=== PATIENT | female | born 1945 | race Caucasian/White ===

== ENCOUNTER 2017-04-01 12:00 | Inpatient (IN) | payer MEDICARE, OTHER ==
[2017-04-01] MEDS ORDERED: Dextran 70/Hypromellose/PF Ophth Soln 0.9 ML UD EYERT PRN (13:04)
[2017-04-01] MEDS ORDERED: Magnesium Hydroxide 400 MG/5 ML Susp 30 ML Cup PO PRN (13:04)
[2017-04-01] MEDS: Acetaminophen/HYDROcodone 325-10 MG Tab PO PRN ×2 (13:39→18:31)
[2017-04-01] MEDS: Calcium Citrate/Vitamin D3 315 MG-250 Unit Tab PO SCH (20:02)
[2017-04-01] MEDS: Apixaban 2.5 MG Tab PO SCH (20:03)
[2017-04-01] MEDS: Multivitamins with Iron/Calcium/Folic Acid/Minerals Tab PO SCH (20:04)
[2017-04-01] MEDS: oxyCODONE 5 MG Tab PO SCH (20:04)
[2017-04-01] MEDS: Metoprolol Tartrate 50 MG Tab PO SCH (20:06)
[2017-04-01] MEDS: Insulin Glargine,Human Rec. Analog 100 Units/ML 3 ML Pen SUBCUT SCH (20:12)
[2017-04-02] MEDS: Acetaminophen/HYDROcodone 325-10 MG Tab PO PRN ×6 (00:11→21:57)
--- NOTE | 2017-04-02 00:41 | HP ---
CHIEF COMPLAINT: Left knee replacement. HISTORY OF PRESENT ILLNESS: This is a 71-year-old with severe arthritis of her left knee, which was replaced by Dr. Roca on 03/29/2017, who comes in for further swing bed cares. She did have some acute blood loss after surgery. Her hemoglobin decreased from 12.4 to 10.1. She has had quite a bit of pain requiring pain pills 2 at a time. Otherwise, she had a bowel movement after suppositories prior to leaving [place]. She has not had any chest pain or coughing or shortness of breath. Her legs are not swollen. She has been on Eliquis for DVT prophylaxis with last dose to be taken the morning of 04/11. PAST MEDICAL HISTORY: Otherwise includes history of thyroid nodules, fibrocystic breasts, endometrial cancer status post hysterectomy, previous compression fracture due to trauma at L3 back in 2009, chronic back pain, uses maybe 1 pain pill per day, obstructive sleep apnea on CPAP, obesity status post gastric bypass surgery, previous retinal vein occlusion, spinal stenosis, hyperlipidemia refusing statins due to myalgias, iron deficiency anemia, asymptomatic carotid artery stenosis, moderate varicose veins bilaterally, anastomotic ulcer after her gastric bypass. She should not use aspirin or NSAIDs. Diabetes type 2 without complications, on long-term insulin use. History of pneumonia in the fall of 2016, resolved. Left hip pain. ALLERGIES: She is allergic to aspirin due to ulcers. Lipitor caused muscle aches. Zestril caused cough. MEDICATIONS: Reviewed. She was taking hydrocodone 10/325 one-half to 1 every 6 hours as needed for pain, Eliquis 2.5 b.i.d., Dulcolax as needed for constipation, milk of magnesia, MiraLAX 1 packet daily, Senokot 1 tab twice daily, calcium with D twice daily, magnesium oxide 500 mg daily, Prilosec 20 mg daily, oxycodone 1 at bedtime and may repeat in 3 hours as needed for pain, Lantus 23 units at bedtime, hydrochlorothiazide 12.5 mg daily, lactobacillus, Lopressor 50 mg b.i.d. PAST SURGICAL HISTORY: The patient has had abdominal hysterectomy with salpingo- oophorectomy in 2009 with her laparoscopic robotic hysterectomy. She has had gastric bypass in 2014. She has had a cholecystectomy in 1994. Carpal tunnel release on the right hand. She has had breast biopsies. SOCIAL HISTORY: She is . She [place] at [place]. 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 She has 6 children. FAMILY HISTORY: Her mother had diabetes, hypertension, skin cancer, stroke, and thyroid issues. Father had colon cancer and migraine headaches. She had a sister that had cancer and then another sister who had endometrial cancer is still living. REVIEW OF SYSTEMS: General: No fever, no chills. No unexpected weight changes. HEENT: No sore throat. Cardiac: No chest pain. Respiratory: As stated in the HPI. Abdominal: No abdominal pain, nausea, or vomiting. She was constipated, but now has had bowel movements. Musculoskeletal: She has had knee pain. Her back pain has actually been quite good. Neurologic: She has not had confusion. Otherwise, all systems reviewed and found to be negative unless otherwise stated. PHYSICAL EXAMINATION: Vital Signs: Her weight today is 67.1 kg, temperature 99.2, pulse 68, blood pressure 135/61, respiratory rate 14, O2 saturation of 92% on room air. General: She is in no acute distress. Heart: Regular rate and rhythm. S1, S2 without murmur. Lungs: Sounds are clear to auscultation bilaterally without crackles or wheezes. Abdomen: Positive bowel sounds. It is soft, it is nontender. Extremities: Warm and dry. There is no calf tenderness. Homans sign is negative. The left knee incision is well healed. There is no surrounding redness or warmth, but she does have a mild effusion. The knee is quite tender, it is nearly in full extension. There is no significant bruising. Dorsal pedis pulses are 2+. NECK: Supple without lymphadenopathy. She does have mild thyromegaly, which is not new. LABORATORY DATA: Lab work reviewed from [place] on the blood sugars yesterday, she did have a reading up to 230. Today, it was 178. Hemoglobin yesterday was 10.4, potassium was also 3.5 prior to surgery. ASSESSMENT: 1. Status post left knee replacement with postoperative pain. The patient will continue on hydrocodone but instead of every 6 hours as needed, I have increased it to every 4 hours for the full tab. She also has the half tab, the 5 mg dose available every 6 hours. Otherwise, she is on a scheduled oxycodone at bedtime and will leave that as well. 2. Type 2 diabetes, uncontrolled with A1c of 8.2, but without complications on long-term insulin use. We will do q.i.d. Accu-Cheks and continue her on the 23 units daily of Lantus. 3. DVT prophylaxis. She will be on Eliquis with last dose the morning of 04/11. 4. Obstructive sleep apnea. She may bring and use her CPAP machine from home. 5. History of gastric bypass with ulcer. NSAIDs will not be used for her pain control. 6. Essential hypertension. Blood pressures are well controlled. We will continue her home regimen. PLAN: At this point, the patient will continue swing bed cares. She will see PT and OT today. We have ordered her bowel medications as well. We will do a potassium and hemoglobin check on Tuesday or sooner with problems. We will get on Federico stockings and incentive spirometry. We will use ice on the knee. We will watch it closely for any bleeding or hematoma. GILSONA: 04/01/2017 16:52:36 MODL: 04/02/2017 00:30:27 /[id number]
[2017-04-02] MEDS: Omeprazole 20 MG Cap.CR PO SCH (06:25)
[2017-04-02] MEDS: Polyethylene Glycol 3350 Powder 17 GM Packet PO SCH (08:29)
[2017-04-02] MEDS: Calcium Citrate/Vitamin D3 315 MG-250 Unit Tab PO SCH ×2 (08:30→19:38)
[2017-04-02] MEDS: Apixaban 2.5 MG Tab PO SCH ×2 (08:30→19:38)
[2017-04-02] MEDS: Magnesium Oxide 400 MG Tab PO SCH (08:30)
[2017-04-02] MEDS: Metoprolol Tartrate 50 MG Tab PO SCH ×2 (08:30→19:40)
[2017-04-02] MEDS: Lactobacillus Rhamnosus GG (Probiotic) Cap PO SCH (08:31)
[2017-04-02] MEDS: Multivitamins with Iron/Calcium/Folic Acid/Minerals Tab PO SCH ×2 (08:31→19:39)
[2017-04-02] MEDS: Hydrochlorothiazide 12.5 MG Cap PO SCH (08:31)
[2017-04-02] MEDS: Potassium Chloride 10 MEQ Tab.ER PO SCH (10:08)
[2017-04-02] MEDS: oxyCODONE ER 20 MG TAB.ER PO SCH ×2 (10:10→19:39)
[2017-04-02] MEDS: Bisacodyl 5 MG Tab PO PRN ×2 (12:22→19:38)
[2017-04-02] MEDS: oxyCODONE 5 MG Tab PO SCH (19:38)
[2017-04-02] MEDS: Insulin Glargine,Human Rec. Analog 100 Units/ML 3 ML Pen SUBCUT SCH (19:42)
[2017-04-03] MEDS: Acetaminophen/HYDROcodone 325-5 MG Tab PO PRN ×3 (00:40→14:50)
[2017-04-03] MEDS: Acetaminophen/HYDROcodone 325-10 MG Tab PO PRN ×3 (04:00→17:06)
[2017-04-03] MEDS: Omeprazole 20 MG Cap.CR PO SCH (06:30)
[2017-04-03] MEDS: oxyCODONE ER 20 MG TAB.ER PO SCH ×2 (07:00→20:11)
[2017-04-03] MEDS: Multivitamins with Iron/Calcium/Folic Acid/Minerals Tab PO SCH ×2 (08:32→20:11)
[2017-04-03] MEDS: Potassium Chloride 10 MEQ Tab.ER PO SCH (08:32)
[2017-04-03] MEDS: Magnesium Oxide 400 MG Tab PO SCH (08:32)
[2017-04-03] MEDS: Bisacodyl 5 MG Tab PO PRN ×2 (08:32→20:11)
[2017-04-03] MEDS: Lactobacillus Rhamnosus GG (Probiotic) Cap PO SCH (08:32)
[2017-04-03] MEDS: Polyethylene Glycol 3350 Powder 17 GM Packet PO SCH (08:32)
[2017-04-03] MEDS: Hydrochlorothiazide 12.5 MG Cap PO SCH (08:33)
[2017-04-03] MEDS: Metoprolol Tartrate 50 MG Tab PO SCH ×2 (08:33→20:10)
[2017-04-03] MEDS: Apixaban 2.5 MG Tab PO SCH ×2 (08:33→20:09)
[2017-04-03] MEDS: Calcium Citrate/Vitamin D3 315 MG-250 Unit Tab PO SCH ×2 (08:33→20:09)
[2017-04-03] MEDS ORDERED: Insulin Glargine,Human Rec. Analog 100 Units/ML 3 ML Pen SUBCUT SCH (10:40)
--- NOTE | 2017-04-03 10:42 | PCM.SN ---
- Free Text/Narrative Note: Lantus in creased to 25 units daily due to higher blood sugars. Pain medications increased with starting oxycontin BID yesterday. Pain seems to be under better control.
[2017-04-03] MEDS: oxyCODONE 5 MG Tab PO SCH (20:10)
[2017-04-04] MEDS: Acetaminophen/HYDROcodone 325-10 MG Tab PO PRN ×4 (00:13→13:44)
[2017-04-04] MEDS: Acetaminophen/HYDROcodone 325-5 MG Tab PO PRN ×3 (02:46→16:31)
[2017-04-04] MEDS: Omeprazole 20 MG Cap.CR PO SCH (06:15)
[2017-04-04] MEDS: Polyethylene Glycol 3350 Powder 17 GM Packet PO SCH (08:16)
[2017-04-04] MEDS: Calcium Citrate/Vitamin D3 315 MG-250 Unit Tab PO SCH ×2 (08:17→19:50)
[2017-04-04] MEDS: Multivitamins with Iron/Calcium/Folic Acid/Minerals Tab PO SCH ×2 (08:17→19:52)
[2017-04-04] MEDS: Apixaban 2.5 MG Tab PO SCH ×2 (08:17→19:50)
[2017-04-04] MEDS: Lactobacillus Rhamnosus GG (Probiotic) Cap PO SCH (08:18)
[2017-04-04] MEDS: Magnesium Oxide 400 MG Tab PO SCH (08:18)
[2017-04-04] MEDS: Potassium Chloride 10 MEQ Tab.ER PO SCH (08:18)
[2017-04-04] MEDS: Hydrochlorothiazide 12.5 MG Cap PO SCH (08:18)
[2017-04-04] MEDS: oxyCODONE ER 20 MG TAB.ER PO SCH ×2 (08:18→19:44)
[2017-04-04] MEDS: Metoprolol Tartrate 50 MG Tab PO SCH ×2 (08:19→19:51)
--- NOTE | 2017-04-04 12:26 | PCM.SN ---
- Free Text/Narrative Note: Blood sugars better so we will leave lantus at 23 units. Lab work ok today. Patient aware, I encouraged better oral intake.
[2017-04-04] MEDS: oxyCODONE 5 MG Tab PO SCH (19:44)
[2017-04-04] MEDS: Insulin Glargine,Human Rec. Analog 100 Units/ML 3 ML Pen SUBCUT SCH (19:48)
[2017-04-04] MEDS: Bisacodyl 5 MG Tab PO PRN (19:51)
[2017-04-05] MEDS: Acetaminophen/HYDROcodone 325-10 MG Tab PO PRN ×3 (00:20→14:56)
[2017-04-05] MEDS: Acetaminophen/HYDROcodone 325-5 MG Tab PO PRN ×2 (05:38→12:19)
[2017-04-05] MEDS: Omeprazole 20 MG Cap.CR PO SCH (06:06)
[2017-04-05] MEDS: Multivitamins with Iron/Calcium/Folic Acid/Minerals Tab PO SCH ×2 (07:53→19:36)
[2017-04-05] MEDS: Polyethylene Glycol 3350 Powder 17 GM Packet PO SCH (07:53)
[2017-04-05] MEDS: Lactobacillus Rhamnosus GG (Probiotic) Cap PO SCH (07:54)
[2017-04-05] MEDS: oxyCODONE ER 20 MG TAB.ER PO SCH ×2 (07:54→19:36)
[2017-04-05] MEDS: Metoprolol Tartrate 50 MG Tab PO SCH ×2 (07:54→19:34)
[2017-04-05] MEDS: Hydrochlorothiazide 12.5 MG Cap PO SCH (07:54)
[2017-04-05] MEDS: Calcium Citrate/Vitamin D3 315 MG-250 Unit Tab PO SCH ×2 (07:54→19:32)
[2017-04-05] MEDS: Magnesium Oxide 400 MG Tab PO SCH (07:54)
[2017-04-05] MEDS: Apixaban 2.5 MG Tab PO SCH ×2 (07:54→19:32)
[2017-04-05] MEDS ORDERED: Bisacodyl 10 MG Supp RECTAL PRN (08:17)
--- NOTE | 2017-04-05 09:11 | PN ---
Progress Note for CHARLES FREEMAN Date: 04/05/2017 Room #: VM.210 SUBJECTIVE: This is a 71-year-old on swing bed after a left knee replacement. She continues to have significant leg pain. She is using her oxycodone 10 mg dose 4 times a day. She used 3 as a 5 mg dose yesterday, prior she was using 6 of the 10 mg dosing, but we did start her on OxyContin 20 b.i.d. a few days ago, because of increasing pain. She had also been on oxycodone 5 mg at bedtime for her back pain prior to surgery. She, otherwise, has pain all the time. She is getting dosing through the night. She has more pain when she gets up and is on it, it is all over; the ice does help some, so she has been using that. She has been on Eliquis for DVT prophylaxis. Otherwise, she is not having any trouble breathing. Blood sugars are running a little higher this morning, but were down to 81 yesterday. OBJECTIVE: Vital Signs: Temperature 98.3, pulse 71, blood pressure 153/68, respiratory rate 20, O2 of 96% on room air. General: She is in no acute distress. Extremities: Her left knee is examined. There is a well-healed incision with no surrounding redness or drainage. She has slight bruising in the popliteal and lateral knee areas. Her knee is in nearly full extension. Mental Status: Alert and orientated x3. LABORATORY DATA: Lab work reviewed from yesterday did show her hemoglobin had improved up to 11.3, white count normal, potassium was 4. ASSESSMENT AND PLAN: Left knee replacement. She is now postoperative day #7 with still significant pain. We will schedule Neurontin at bedtime. We will keep her other pain pills the same. She actually feels like her pain pills are working quite well now, but I instructed her that at some point we are going to need to taper the doses back. Nursing is trying to get her up and have her shower today. She will also use a suppository for constipation. We will go ahead and increase her Senna Plus 2 b.i.d. She has had bowel movements here, but they have been small. MKA: 04/05/2017 08:37:38 MODL: 04/05/2017 09:06:54 /[id number]
[2017-04-05] MEDS: Gabapentin 100 MG Cap PO SCH (19:34)
[2017-04-05] MEDS: oxyCODONE 5 MG Tab PO SCH (19:35)
[2017-04-05] MEDS: Insulin Glargine,Human Rec. Analog 100 Units/ML 3 ML Pen SUBCUT SCH (19:40)
[2017-04-06] MEDS: Acetaminophen/HYDROcodone 325-10 MG Tab PO PRN ×4 (01:39→15:59)
[2017-04-06] MEDS: Omeprazole 20 MG Cap.CR PO SCH (06:01)
[2017-04-06] MEDS: Calcium Citrate/Vitamin D3 315 MG-250 Unit Tab PO SCH ×2 (07:44→19:39)
[2017-04-06] MEDS: Apixaban 2.5 MG Tab PO SCH ×2 (07:44→19:39)
[2017-04-06] MEDS: Metoprolol Tartrate 50 MG Tab PO SCH ×2 (07:44→19:40)
[2017-04-06] MEDS: oxyCODONE ER 20 MG TAB.ER PO SCH ×2 (07:44→19:42)
[2017-04-06] MEDS: Lactobacillus Rhamnosus GG (Probiotic) Cap PO SCH (07:44)
[2017-04-06] MEDS: Magnesium Oxide 400 MG Tab PO SCH (07:44)
[2017-04-06] MEDS: Multivitamins with Iron/Calcium/Folic Acid/Minerals Tab PO SCH ×2 (07:44→19:42)
[2017-04-06] MEDS: Polyethylene Glycol 3350 Powder 17 GM Packet PO SCH (07:44)
[2017-04-06] MEDS: Hydrochlorothiazide 12.5 MG Cap PO SCH (07:44)
[2017-04-06] MEDS: Insulin Glargine,Human Rec. Analog 100 Units/ML 3 ML Pen SUBCUT SCH (19:39)
[2017-04-06] MEDS: Gabapentin 100 MG Cap PO SCH (19:41)
[2017-04-06] MEDS: oxyCODONE 5 MG Tab PO SCH (19:41)
[2017-04-07] MEDS: Acetaminophen/HYDROcodone 325-10 MG Tab PO PRN ×4 (01:46→16:05)
[2017-04-07] MEDS: Omeprazole 20 MG Cap.CR PO SCH (06:18)
[2017-04-07] MEDS: Lactobacillus Rhamnosus GG (Probiotic) Cap PO SCH (07:56)
[2017-04-07] MEDS: Polyethylene Glycol 3350 Powder 17 GM Packet PO SCH (07:56)
[2017-04-07] MEDS: Apixaban 2.5 MG Tab PO SCH ×2 (07:56→19:39)
[2017-04-07] MEDS: Calcium Citrate/Vitamin D3 315 MG-250 Unit Tab PO SCH ×2 (07:56→19:39)
[2017-04-07] MEDS: Metoprolol Tartrate 50 MG Tab PO SCH ×2 (07:57→19:41)
[2017-04-07] MEDS: Multivitamins with Iron/Calcium/Folic Acid/Minerals Tab PO SCH ×2 (07:58→19:42)
[2017-04-07] MEDS: oxyCODONE ER 20 MG TAB.ER PO SCH ×2 (07:58→19:42)
[2017-04-07] MEDS: Hydrochlorothiazide 12.5 MG Cap PO SCH (07:58)
[2017-04-07] MEDS: Magnesium Oxide 400 MG Tab PO SCH (07:58)
[2017-04-07] MEDS ORDERED: Insulin Aspart 100 Units/ML 3 ML Pen SUBCUT SCH (08:00)
--- NOTE | 2017-04-07 09:13 | PN ---
Progress Note for CHARLES FREEMAN Date: 04/07/2017 Room #: VM.210 SUBJECTIVE: This is a 71-year-old on swing bed after a left knee replacement on 03/29/2017. She has had a lot of pain. She states that she thinks it is from when her sort of dropped her leg down after she got here. She feels that was a set back. She really has pain all over. She has been slow to progress with therapies. CPM machine was ordered yesterday to help work on range of motion. Blood sugars have ran higher, but she was eating some cherries yesterday. She has been off meal insulin ever since her gastric bypass. Otherwise, she has had no trouble breathing. She was started on Neurontin and has not noticed any difference, she took it at night. OBJECTIVE: Vital Signs: Include a temperature 97.3, pulse 64, blood pressure 100/54, respiratory rate 20, O2 of 97% on room air. General: She is in no acute distress. Heart: Regular rate and rhythm. Lungs: Sounds are clear to auscultation bilaterally without crackles or wheezes. Abdomen: Positive bowel sounds. Soft and nontender. Extremities: Warm and dry. The left knee is examined. There is just minimal bruising and swelling but it is exquisitely tender all over. It is not red or warm. Mental Status: She is alert and orientated x3. ASSESSMENT: 1. Left knee replacement with ongoing pain. Discussed increasing the Neurontin to twice daily today. I have also updated Ortho. She will work with a CPM machine. 2. Diabetes, uncontrolled. We will keep her long-acting insulin the same but start meal insulin 3 units t.i.d. 3. History of gastric bypass and also not a candidate to take NSAIDs. 4. Deep vein thrombosis prophylaxis, on Eliquis. PLAN: At this point, the patient will continue swing bed cares. We will continue pain pills and icing the knee. We will get her into CPM machine. I have also updated her orthopaedic surgeon. Her appointment with him is until May. MKA: 04/07/2017 08:29:01 MODL: 04/07/2017 08:59:47 /[id number]
[2017-04-07] MEDS: Insulin Aspart 100 Units/ML 3 ML Pen SUBCUT SCH ×3 (09:24→18:08)
[2017-04-07] MEDS: Gabapentin 100 MG Cap PO SCH ×2 (09:24→19:41)
[2017-04-07] MEDS: Insulin Glargine,Human Rec. Analog 100 Units/ML 3 ML Pen SUBCUT SCH (19:40)
[2017-04-07] MEDS: oxyCODONE 5 MG Tab PO SCH (19:41)
[2017-04-08] MEDS: Acetaminophen/HYDROcodone 325-10 MG Tab PO PRN ×5 (02:21→20:28)
[2017-04-08] MEDS: Acetaminophen/HYDROcodone 325-5 MG Tab PO PRN (05:34)
[2017-04-08] MEDS: Omeprazole 20 MG Cap.CR PO SCH (06:11)
[2017-04-08] MEDS: Lactobacillus Rhamnosus GG (Probiotic) Cap PO SCH (07:56)
[2017-04-08] MEDS: Polyethylene Glycol 3350 Powder 17 GM Packet PO SCH (07:56)
[2017-04-08] MEDS: Calcium Citrate/Vitamin D3 315 MG-250 Unit Tab PO SCH ×2 (07:57→20:30)
[2017-04-08] MEDS: Metoprolol Tartrate 50 MG Tab PO SCH ×2 (07:57→20:29)
[2017-04-08] MEDS: Magnesium Oxide 400 MG Tab PO SCH (07:58)
[2017-04-08] MEDS: Apixaban 2.5 MG Tab PO SCH ×2 (07:58→20:28)
[2017-04-08] MEDS: Gabapentin 100 MG Cap PO SCH ×2 (07:58→20:31)
[2017-04-08] MEDS: Hydrochlorothiazide 12.5 MG Cap PO SCH (07:58)
[2017-04-08] MEDS: oxyCODONE ER 20 MG TAB.ER PO SCH ×2 (07:59→20:27)
[2017-04-08] MEDS: Multivitamins with Iron/Calcium/Folic Acid/Minerals Tab PO SCH ×2 (07:59→20:30)
[2017-04-08] MEDS: Insulin Aspart 100 Units/ML 3 ML Pen SUBCUT SCH ×3 (08:00→18:00)
--- NOTE | 2017-04-08 09:09 | PN ---
Progress Note for CHARLES FREEMAN Date: 04/08/2017 Room #: VM.210 SUBJECTIVE: This is a 71-year-old on swing bed after a left knee replacement. She is using the CPM on the knee, and she states that it is helping. She feels she is doing a little better. She is bending it more, but still having significant pain. She feels that she is getting some dreams and some funny feelings in her mouth from the Neurontin, and she does not really like it. We discussed keeping it in place for pain, but not increasing the dose. She is on OxyContin also 20 mg twice daily. She had been receiving oxycodone 5 mg at night before surgery as her opioids, but had been on long-term, like 1 pill per day of, hydrocodone for back pain. She received a total of 40 mg yesterday of hydrocodone also. OBJECTIVE: Vital Signs: Her temperature 98.3, pulse 67, blood pressure 134/61, and respiratory rate was listed as 10, but she is awake and alert and it was at least 16 when I examined her. O2 saturation recorded at 91% on room air, but her lungs sounds were clear and previous was 97%. LABORATORY DATA: No lab work is due. Her last hemoglobin had improved. Her blood sugars have also improved with 132 this morning after starting meal insulin yesterday. ASSESSMENT: 1. Post left knee replacement on 03/29/2017 with significant pain. We are continuing Neurontin 100 twice daily, but I do not recommend increasing due to side effects. Otherwise, we will take away her oxycodone at bedtime and next week, on Tuesday, I would stop the OxyContin in the morning and continue only at bedtime. 2. Diabetes, uncontrolled. We will continue q.i.d. checks and 3 units t.i.d. of insulin. Make adjustments if needed. 3. History of gastric bypass. She is not a candidate for NSAIDs, as she has had an ulcer. 4. DVT prophylaxis. She is on Eliquis. Last dose, on 04/11. PLAN: At this point, she will continue swing bed cares and work with therapy. I anticipate that she will continue to have a slow recovery and probably will not be discharged in the next week. MKA: 04/08/2017 08:47:18 MODL: 04/08/2017 09:00:39 /[id number]
[2017-04-08] MEDS: Insulin Glargine,Human Rec. Analog 100 Units/ML 3 ML Pen SUBCUT SCH (20:23)
[2017-04-09] MEDS: Acetaminophen/HYDROcodone 325-10 MG Tab PO PRN ×4 (01:30→16:40)
[2017-04-09] MEDS: Omeprazole 20 MG Cap.CR PO SCH (06:24)
[2017-04-09] MEDS: Calcium Citrate/Vitamin D3 315 MG-250 Unit Tab PO SCH ×2 (08:26→19:54)
[2017-04-09] MEDS: Lactobacillus Rhamnosus GG (Probiotic) Cap PO SCH (08:26)
[2017-04-09] MEDS: Hydrochlorothiazide 12.5 MG Cap PO SCH (08:26)
[2017-04-09] MEDS: Metoprolol Tartrate 50 MG Tab PO SCH ×2 (08:27→19:58)
[2017-04-09] MEDS: Multivitamins with Iron/Calcium/Folic Acid/Minerals Tab PO SCH ×2 (08:28→19:58)
[2017-04-09] MEDS: Apixaban 2.5 MG Tab PO SCH ×2 (08:28→19:54)
[2017-04-09] MEDS: Gabapentin 100 MG Cap PO SCH ×2 (08:28→19:59)
[2017-04-09] MEDS: oxyCODONE ER 20 MG TAB.ER PO SCH ×2 (08:29→19:58)
[2017-04-09] MEDS: Magnesium Oxide 400 MG Tab PO SCH (08:29)
[2017-04-09] MEDS: Insulin Aspart 100 Units/ML 3 ML Pen SUBCUT SCH ×3 (08:29→17:48)
[2017-04-09] MEDS: Polyethylene Glycol 3350 Powder 17 GM Packet PO SCH (08:29)
[2017-04-09] MEDS: Insulin Glargine,Human Rec. Analog 100 Units/ML 3 ML Pen SUBCUT SCH (19:55)
[2017-04-10] MEDS: Acetaminophen/HYDROcodone 325-10 MG Tab PO PRN ×5 (01:18→23:43)
[2017-04-10] MEDS: Omeprazole 20 MG Cap.CR PO SCH (06:20)
[2017-04-10] MEDS: Multivitamins with Iron/Calcium/Folic Acid/Minerals Tab PO SCH ×2 (08:32→20:03)
[2017-04-10] MEDS: Apixaban 2.5 MG Tab PO SCH ×2 (08:32→20:03)
[2017-04-10] MEDS: oxyCODONE ER 20 MG TAB.ER PO SCH ×2 (08:32→20:03)
[2017-04-10] MEDS: Polyethylene Glycol 3350 Powder 17 GM Packet PO SCH (08:32)
[2017-04-10] MEDS: Calcium Citrate/Vitamin D3 315 MG-250 Unit Tab PO SCH ×2 (08:32→20:03)
[2017-04-10] MEDS: Metoprolol Tartrate 50 MG Tab PO SCH ×2 (08:32→20:02)
[2017-04-10] MEDS: Magnesium Oxide 400 MG Tab PO SCH (08:32)
[2017-04-10] MEDS: Hydrochlorothiazide 12.5 MG Cap PO SCH (08:32)
[2017-04-10] MEDS: Insulin Aspart 100 Units/ML 3 ML Pen SUBCUT SCH ×3 (08:33→17:19)
[2017-04-10] MEDS: Gabapentin 100 MG Cap PO SCH ×2 (08:33→20:03)
[2017-04-10] MEDS: Lactobacillus Rhamnosus GG (Probiotic) Cap PO SCH (08:33)
[2017-04-10] MEDS: Insulin Glargine,Human Rec. Analog 100 Units/ML 3 ML Pen SUBCUT SCH (20:00)
[2017-04-11] MEDS: Omeprazole 20 MG Cap.CR PO SCH (06:13)
[2017-04-11] MEDS: oxyCODONE ER 20 MG TAB.ER PO SCH ×2 (08:04→20:04)
[2017-04-11] MEDS: Acetaminophen/HYDROcodone 325-10 MG Tab PO PRN ×4 (08:04→23:31)
[2017-04-11] MEDS: Polyethylene Glycol 3350 Powder 17 GM Packet PO SCH (08:04)
[2017-04-11] MEDS: Multivitamins with Iron/Calcium/Folic Acid/Minerals Tab PO SCH ×2 (08:05→20:05)
[2017-04-11] MEDS: Hydrochlorothiazide 12.5 MG Cap PO SCH (08:05)
[2017-04-11] MEDS: Gabapentin 100 MG Cap PO SCH ×2 (08:05→20:04)
[2017-04-11] MEDS: Calcium Citrate/Vitamin D3 315 MG-250 Unit Tab PO SCH ×2 (08:05→20:03)
[2017-04-11] MEDS: Apixaban 2.5 MG Tab PO SCH (08:05)
[2017-04-11] MEDS: Magnesium Oxide 400 MG Tab PO SCH (08:05)
[2017-04-11] MEDS: Lactobacillus Rhamnosus GG (Probiotic) Cap PO SCH (08:05)
[2017-04-11] MEDS: Metoprolol Tartrate 50 MG Tab PO SCH ×2 (08:05→20:04)
[2017-04-11] MEDS: Insulin Aspart 100 Units/ML 3 ML Pen SUBCUT SCH ×3 (08:06→17:23)
[2017-04-11] MEDS ORDERED: oxyCODONE ER 20 MG TAB.ER PO ONE (08:39)
[2017-04-11] MEDS: Insulin Glargine,Human Rec. Analog 100 Units/ML 3 ML Pen SUBCUT SCH (20:03)
[2017-04-12] MEDS: Acetaminophen/HYDROcodone 325-10 MG Tab PO PRN ×5 (03:49→20:15)
[2017-04-12] MEDS: Omeprazole 20 MG Cap.CR PO SCH (06:32)
[2017-04-12] MEDS: Magnesium Oxide 400 MG Tab PO SCH (07:39)
[2017-04-12] MEDS: Calcium Citrate/Vitamin D3 315 MG-250 Unit Tab PO SCH ×2 (07:39→20:14)
[2017-04-12] MEDS: Polyethylene Glycol 3350 Powder 17 GM Packet PO SCH (07:39)
[2017-04-12] MEDS: Gabapentin 100 MG Cap PO SCH ×2 (07:39→20:14)
[2017-04-12] MEDS: Multivitamins with Iron/Calcium/Folic Acid/Minerals Tab PO SCH ×2 (07:39→20:14)
[2017-04-12] MEDS: Metoprolol Tartrate 50 MG Tab PO SCH ×2 (07:40→20:14)
[2017-04-12] MEDS: Lactobacillus Rhamnosus GG (Probiotic) Cap PO SCH (07:40)
[2017-04-12] MEDS: Hydrochlorothiazide 12.5 MG Cap PO SCH (07:40)
[2017-04-12] MEDS: Insulin Aspart 100 Units/ML 3 ML Pen SUBCUT SCH ×3 (07:40→17:18)
[2017-04-12] MEDS: Insulin Glargine,Human Rec. Analog 100 Units/ML 3 ML Pen SUBCUT SCH (20:13)
[2017-04-12] MEDS: oxyCODONE ER 20 MG TAB.ER PO SCH (20:15)
[2017-04-13] MEDS: Acetaminophen/HYDROcodone 325-10 MG Tab PO PRN ×5 (01:48→22:18)
[2017-04-13] MEDS: Omeprazole 20 MG Cap.CR PO SCH (06:16)
[2017-04-13] MEDS: Polyethylene Glycol 3350 Powder 17 GM Packet PO SCH (09:02)
[2017-04-13] MEDS: Calcium Citrate/Vitamin D3 315 MG-250 Unit Tab PO SCH ×2 (09:03→20:24)
[2017-04-13] MEDS: Multivitamins with Iron/Calcium/Folic Acid/Minerals Tab PO SCH ×2 (09:03→20:30)
[2017-04-13] MEDS: Magnesium Oxide 400 MG Tab PO SCH (09:03)
[2017-04-13] MEDS: Lactobacillus Rhamnosus GG (Probiotic) Cap PO SCH (09:03)
[2017-04-13] MEDS: Metoprolol Tartrate 50 MG Tab PO SCH ×2 (09:04→20:29)
[2017-04-13] MEDS: Gabapentin 100 MG Cap PO SCH ×2 (09:05→20:29)
[2017-04-13] MEDS: Insulin Aspart 100 Units/ML 3 ML Pen SUBCUT SCH ×3 (09:05→17:46)
[2017-04-13] MEDS: Hydrochlorothiazide 12.5 MG Cap PO SCH (09:05)
[2017-04-13] MEDS: Insulin Glargine,Human Rec. Analog 100 Units/ML 3 ML Pen SUBCUT SCH (20:24)
[2017-04-13] MEDS: oxyCODONE ER 20 MG TAB.ER PO SCH (20:29)
[2017-04-14] MEDS: Acetaminophen/HYDROcodone 325-10 MG Tab PO PRN ×5 (03:19→22:15)
[2017-04-14] MEDS: Omeprazole 20 MG Cap.CR PO SCH (06:10)
[2017-04-14] MEDS: Multivitamins with Iron/Calcium/Folic Acid/Minerals Tab PO SCH ×2 (08:11→19:45)
[2017-04-14] MEDS: Magnesium Oxide 400 MG Tab PO SCH (08:11)
[2017-04-14] MEDS: Metoprolol Tartrate 50 MG Tab PO SCH ×2 (08:11→19:44)
[2017-04-14] MEDS: Polyethylene Glycol 3350 Powder 17 GM Packet PO SCH (08:11)
[2017-04-14] MEDS: Gabapentin 100 MG Cap PO SCH ×2 (08:14→19:44)
[2017-04-14] MEDS: Calcium Citrate/Vitamin D3 315 MG-250 Unit Tab PO SCH ×2 (08:14→19:45)
[2017-04-14] MEDS: Hydrochlorothiazide 12.5 MG Cap PO SCH (08:15)
[2017-04-14] MEDS: Lactobacillus Rhamnosus GG (Probiotic) Cap PO SCH (08:15)
[2017-04-14] MEDS: Insulin Aspart 100 Units/ML 3 ML Pen SUBCUT SCH ×3 (08:16→17:45)
[2017-04-14] MEDS ORDERED: oxyCODONE ER 20 MG TAB.ER PO PRN (08:45)
[2017-04-14] MEDS: Acetaminophen/HYDROcodone 325-5 MG Tab PO PRN (09:33)
[2017-04-14] MEDS: Insulin Glargine,Human Rec. Analog 100 Units/ML 3 ML Pen SUBCUT SCH (19:44)
[2017-04-15] MEDS: Acetaminophen/HYDROcodone 325-10 MG Tab PO PRN ×3 (02:21→11:05)
[2017-04-15 05:58] VITALS: BP 111/56
[2017-04-15] MEDS: Omeprazole 20 MG Cap.CR PO SCH (06:18)
[2017-04-15] MEDS: Polyethylene Glycol 3350 Powder 17 GM Packet PO SCH (07:45)
[2017-04-15] MEDS: Hydrochlorothiazide 12.5 MG Cap PO SCH (07:46)
[2017-04-15] MEDS: Multivitamins with Iron/Calcium/Folic Acid/Minerals Tab PO SCH (07:46)
[2017-04-15] MEDS: Calcium Citrate/Vitamin D3 315 MG-250 Unit Tab PO SCH (07:46)
[2017-04-15] MEDS: Metoprolol Tartrate 50 MG Tab PO SCH (07:46)
[2017-04-15] MEDS: Gabapentin 100 MG Cap PO SCH (07:46)
[2017-04-15] MEDS: Lactobacillus Rhamnosus GG (Probiotic) Cap PO SCH (07:47)
[2017-04-15] MEDS: Magnesium Oxide 400 MG Tab PO SCH (07:47)
[2017-04-15] MEDS: Insulin Aspart 100 Units/ML 3 ML Pen SUBCUT SCH ×2 (07:47→11:07)
--- NOTE | 2017-04-15 08:49 | PCM.DCSUM1 ---
Discharge Summary - Discharge Data Discharge Date: 04/15/17 Discharge Disposition: Home, Self-Care 01 Condition: Good - Patient Instructions Diet: Diabetic Diet Activity: Apply Ice, As Tolerated Driving: Do Not Drive Showering/Bathing: May Shower Wound/Incision Care: Keep Operative Site/Wound Site Clean and Dry Notify Provider of: Fever, Increased Pain, Swelling and Redness, Drainage Other/Special Instructions: 1. 1 week recheck in the clinic. 2. Try to wean down on the pain medications. 3. Continue outpatient physical therapy. 4. Let us know if there are any signs of infection (drainage, redness, warmth, increased pain, swelling). 5. Monitor the blood sugars and bring readings to your appointment. Let us know if you are having any low blood sugar readings. 6. Discontinue the gabapentin - Discharge Plan Prescriptions/Med Rec: Acetaminophen/HYDROcodone [[place] 325-10 MG] 1 tab PO Q6H PRN #60 tablet PRN Reason: Pain Insulin Aspart [NovoLOG] 3 unit SUBCUT TIDMEALS #1 pen Home Medications: Home Meds Bisacodyl [Dulcolax] 5 mg PO BID PRN 04/01/17 [History] Calcium Citrate/Vitamin D3 [Calcium Citrate - Vit D Tablet] 1 tab PO BID [History] Hydrochlorothiazide 12.5 mg PO DAILY 04/01/17 [History] Insulin Glarg,Human.Rec.Analog [LantUS Solostar] 23 units SUBCUT BEDTIME [History] Lactobacillus Acidophilus [Probiotic] 1 cap PO DAILY 04/01/17 [History] Magnesium Hydroxide [Milk of Magnesia] 30 ml PO BID PRN 04/01/17 [History] Magnesium Oxide 500 mg PO DAILY 04/01/17 [History] Metoprolol Tartrate 50 mg PO BID 04/01/17 [History] Multivitamin/Iron/Folic Acid [Multi-Day Plus Iron Tablet] 1 each PO BEDTIME [History] Multivitamin/Iron/Folic Acid [Multi-Day Plus Iron Tablet] 2 tab PO DAILY [History] Omeprazole 20 mg PO DAILY 04/01/17 [History] Polyethylene Glycol 3350 [MiraLAX] 17 gm PO DAILY 04/01/17 [History] Polyvinyl Alcohol/Povidone [Artificial Tears Drops] 1 drop EYERT Q4H PRN [History] Sennosides/Docusate Sodium [Senna-Docusate Sodium] 1 tab PO BID 04/01/17 [ History] Acetaminophen/HYDROcodone [[place] 325-10 MG] 1 tab PO Q6H PRN #60 tablet [Rx] Insulin Aspart [NovoLOG] 3 unit SUBCUT TIDMEALS #1 pen 04/15/17 [Rx] Other Amb Orders: PT Evaluation and Treatment [CONS] Location: Determined By Patient - General Info Date of Service: 04/15/17 Admission Dx/Problem (Free Text: 71 yo female seen on swingbed following a L knee replacement. Patient is able to be discharged today and continue outpatient PT. Patient states that she has been doing fairly well. Continues to have pain but finds the hydrocodone 10- 325 mg Q4H has been helpful. We did make the oxycodone prn at bedtime and did not need this last night. Patient does wish to discontinue the neurontin. States that she has been having strange dreams and the sensation that she has string in her mouth. Appears this was occurring last week as well but at the time she decided to continue it. Blood sugars have been improved since starting mealtime insulin. She is receiving 3 units of novolog with each meal. Yesterday's glucose readings were 88 in the AM, 107 at noon, and 174 HS. Did have some higher readings around 200 but this only lasted for about 1 day. Otherwise has been running 120-150 at meals. States she will be seeing her orthopedic surgeon on 05/09 for follow-up. Will need a 1 week follow-up in the clinic. No questions or concerns at this time. - Review of Systems General: Denies: Fever, Weakness Pulmonary: Denies: shortness of breath Cardiovascular: Denies: Chest Pain, Edema Gastrointestinal: Denies: Abdominal pain, Constipation Musculoskeletal: Reports: other (L knee pain) Neurological: Reports: Other (strange dreams). Denies: Dizziness - Patient Data Vitals - Most Recent: Last Vital Signs Temp 36.7 C 04/15/17 05:57 Pulse 76 04/15/17 07:46 Resp 20 04/15/17 05:57 BP 111/56 L 04/15/17 07:46 Pulse Ox 94 L 07/14/17 05:57 Weight - Most Recent: 67.132 kg I&O - Last 24 hours: Intake & Output 04/14/17 04/15/17 04/15/17 22:59 06:59 14:59 Intake Total 180 Balance 180 Lab Results - Last 24 hrs: Laboratory Results - last 24 hr 04/14/17 04/14/17 04/14/17 Range/Units 11:25 17:19 19:43 POC Glucose 107 H 92 174 H (74-106) mg/dL 04/15/17 04/15/17 Range/Units 04:23 06:19 POC Glucose 103 91 (74-106) mg/dL Med Orders - Current: Current Medications Hydrocodone Bitart/Acetaminophen ([place] 325-10 Mg) 1 tab PO Q4H PRN PRN Reason: Pain (severe 7-10) Last Admin: 04/15/17 06:20 Dose: 1 tab Hydrocodone Bitart/Acetaminophen ([place] 325-5 Mg) 1 tab PO Q6H PRN PRN Reason: Pain (moderate 4-6) Last Admin: 04/14/17 09:33 Dose: 1 tab Artificial Tears (Tears Naturale Free) 1 each EYERT Q4H PRN PRN Reason: Dry Eyes Bisacodyl (Dulcolax) 5 mg PO BID PRN PRN Reason: Constipation Last Admin: 04/04/17 19:51 Dose: 5 mg Bisacodyl (Dulcolax) 10 mg RECTAL DAILY PRN PRN Reason: Constipation Calcium Citrate (Calcium Citrate + D) 1 tab PO BID [facility] Last Admin: 04/15/17 07:46 Dose: 1 tab Gabapentin (Neurontin) 100 mg PO BID [facility] Last Admin: 04/15/17 07:46 Dose: 100 mg Hydrochlorothiazide (Hydrochlorothiazide) 12.5 mg PO DAILY [facility] Last Admin: 04/15/17 07:46 Dose: 12.5 mg Insulin Aspart (Novolog) 3 unit SUBCUT TIDMEALS [facility] Last Admin: 04/15/17 07:47 Dose: 3 units Insulin Glargine (Lantus Solostar) 23 units SUBCUT BEDTIME [facility] Last Admin: 04/14/17 19:44 Dose: 23 units Lactobacillus Rhamnosus (Culturelle) 1 cap PO DAILY [facility] Last Admin: 04/15/17 07:47 Dose: 1 cap Magnesium Hydroxide (Milk Of Magnesia) 30 ml PO BID PRN PRN Reason: Constipation Magnesium Oxide (Magnesium Oxide) 400 mg PO DAILY [facility] Last Admin: 04/15/17 07:47 Dose: 400 mg Metoprolol Tartrate (Lopressor) 50 mg PO BID [facility] Last Admin: 04/15/17 07:46 Dose: 50 mg Multivitamins/Minerals (Thera M Plus) 1 tab PO BID [facility] Last Admin: 04/15/17 07:46 Dose: 1 tab Omeprazole (Omeprazole) 20 mg PO DAILY@0700 [facility] Last Admin: 04/15/17 06:18 Dose: 20 mg Oxycodone HCl (Oxycontin) 20 mg PO BEDTIME PRN PRN Reason: pain Polyethylene Glycol (Miralax) 17 gm PO DAILY [facility] Last Admin: 04/15/17 07:45 Dose: 17 gm Senna/Docusate Sodium (Senna Plus) 2 tab PO BID [facility] Last Admin: 04/15/17 07:46 Dose: 2 tab Discontinued Medications Apixaban (Eliquis) 2.5 mg PO BID [facility] Stop: 04/11/17 12:00 Last Admin: 04/11/17 08:05 Dose: 2.5 mg Gabapentin (Neurontin) 100 mg PO BEDTIME [facility] Last Admin: 04/06/17 19:41 Dose: 100 mg Insulin Aspart (Novolog) 4 unit SUBCUT TIDMEALS [facility] Last Admin: 04/07/17 08:44 Dose: Not Given Insulin Glargine (Lantus Solostar) 23 units SUBCUT BEDTIME [facility] Last Admin: 04/02/17 19:42 Dose: 23 units Insulin Glargine (Lantus Solostar) 25 units SUBCUT BEDTIME [facility] Last Admin: 04/03/17 20:12 Dose: 23 unit Oxycodone HCl (Oxycodone) 5 mg PO BEDTIME [facility] Last Admin: 04/07/17 19:41 Dose: 5 mg Oxycodone HCl (Oxycontin) 20 mg PO Q12HR [facility] Last Admin: 04/11/17 08:04 Dose: 20 mg Oxycodone HCl (Oxycontin) 20 mg PO BEDTIME ONE Stop: 04/11/17 08:40 Last Admin: 04/11/17 08:50 Dose: Not Given Oxycodone HCl (Oxycontin) 20 mg PO BEDTIME [facility] Last Admin: 04/13/17 20:29 Dose: 20 mg Potassium Chloride (Klor-Con 10) 10 meq PO DAILY [facility] Last Admin: 04/04/17 08:18 Dose: 10 meq Senna/Docusate Sodium (Senna Plus) 1 tab PO BID [facility] Last Admin: 04/05/17 07:54 Dose: 1 tab Senna/Docusate Sodium (Senna Plus) 1 tab PO ONETIME ONE Stop: 04/05/17 08:31 Last Admin: 04/05/17 09:08 Dose: 1 tab - Exam General: Reports: alert, oriented Lungs: Reports: Clear to auscultation, Normal respiratory effort. Denies: Decreased breath sounds, Crackles, Rales, Rhonchi, Wheezing Cardiovascular: Reports: Regular Rate, Regular Rhythm, No Murmurs Abdomen: Reports: bowel sounds present, soft, no tenderness, no distension Extremities: Reports: no edema Skin: Reports: warm, dry Wound/Incisions: Reports: healing well, no drainage. Denies: erythema Psy/Mental Status: Reports: alert, normal affect, normal mood *Q Meaningful Use (DIS) - VTE *Q VTE Criteria *Q: - Stroke *Q Stroke Criteria *Q: - AMI *Q AMI Criteria *Q:
== END 2017-04-15 13:20 | disposition home or self-care (01) | DRG 561 ==
LOC: VM.MS 12:00
PROVIDERS: ADMIT Internal Medicine; ATTEND Internal Medicine
DX: Z47.1 Aftercare following joint replacement surgery (principal); Z96.652 Presence of left artificial knee joint; M54.9 Dorsalgia, unspecified; G89.29 Other chronic pain; G47.33 Obstructive sleep apnea (adult) (pediatric); E78.5 Hyperlipidemia, unspecified; D50.9 Iron deficiency anemia, unspecified; E11.65 Type 2 diabetes mellitus with hyperglycemia; I10 Essential (primary) hypertension; Z79.4 Long term (current) use of insulin; Z98.84 Bariatric surgery status
CPT/HCPCS: 36415; 82962; 84132; 85025; 94760; 97110-GP; 97116-GP; 97161-GP; 97165-GO; 97530-GP; 97535-GO; A9270-GY; J1815-GY

== ENCOUNTER 2017-04-19 02:20 | Emergency (ER) | payer MEDICARE, OTHER ==
[2017-04-19] MEDS ORDERED: Sodium Chloride 0.9% 1,000 ML IV ONE (02:32)
[2017-04-19] MEDS ORDERED: Sodium Chloride 0.9% 10 ML Syringe FLUSH PRN (02:32)
[2017-04-19] MEDS ORDERED: HYDROmorphone 1 MG/ML Syringe IVPUSH ONE (02:32)
[2017-04-19 02:34] VITALS: BP 158/79
--- NOTE | 2017-04-19 03:40 | EDM.PDOC ---
ED HPI GENERAL MEDICAL PROBLEM - General Chief Complaint: Abdominal Pain Stated Complaint: Right groin/right lower abdominal pain Time Seen by Provider: 04/19/17 02:32 Source of Information: Reports: Patient, Family History Limitations: Reports: No Limitations - History of Present Illness INITIAL COMMENTS - FREE TEXT/NARRATIVE: Patient is brought in this evening with right lower quadrant pain. Pain started this evening. No nausea or vomiting. No bloody urine or stools. No chest pain, SOB, change in LOC. Patient recently had left knee replacement and was in [facility] swing bed with discharge back to home on TuesdayApril 15. She describes pain on the lower right side with some radiating to the back. No urinary symptoms of dysuria, freqency, etc. No fever or chills. Onset: Today, Sudden Duration: Getting Worse Location: Reports: Abdomen Quality: Reports: Ache, Sharp Severity: Severe Improves with: Reports: Medication Worsens with: Reports: Movement Associated Symptoms: Reports: No Other Symptoms Right groin, right lower quadrant Pain Score (Numeric/FACES): 10 - Related Data Allergies Allergy/AdvReac Type Severity Reaction Status Date / Time aspirin Allergy Cannot Verified 04/01/17 14:28 Remember [place]-Kgj-Ain Reductase Allergy Cannot Verified 04/01/17 14:28 Inhibitor Remember atorvastatin [From Lipitor] AdvReac Muscle Verified 04/07/17 08:29 Aches levofloxacin [From Levaquin] AdvReac Leg Cramps Verified 04/07/17 08:29 lisinopril [From Zestoretic] AdvReac Cough Verified 04/01/17 12:40 Home Meds: Home Meds Bisacodyl [Dulcolax] 5 mg PO BID PRN 04/01/17 [History] Calcium Citrate/Vitamin D3 [Calcium Citrate - Vit D Tablet] 1 tab PO BID [History] Hydrochlorothiazide 12.5 mg PO DAILY 04/01/17 [History] Insulin Glarg,Human.Rec.Analog [LantUS Solostar] 23 units SUBCUT BEDTIME [History] Lactobacillus Acidophilus [Probiotic] 1 cap PO DAILY 04/01/17 [History] Magnesium Hydroxide [Milk of Magnesia] 30 ml PO BID PRN 04/01/17 [History] Magnesium Oxide 500 mg PO DAILY 04/01/17 [History] Metoprolol Tartrate 50 mg PO BID 04/01/17 [History] Multivitamin/Iron/Folic Acid [Multi-Day Plus Iron Tablet] 1 each PO BEDTIME [History] Multivitamin/Iron/Folic Acid [Multi-Day Plus Iron Tablet] 2 tab PO DAILY [History] Omeprazole 20 mg PO DAILY 04/01/17 [History] Polyethylene Glycol 3350 [MiraLAX] 17 gm PO DAILY 04/01/17 [History] Polyvinyl Alcohol/Povidone [Artificial Tears Drops] 1 drop EYERT Q4H PRN [History] Sennosides/Docusate Sodium [Senna-Docusate Sodium] 1 tab PO BID 04/01/17 [ History] Acetaminophen/HYDROcodone [[place] 325-10 MG] 1 tab PO Q6H PRN #60 tablet [Rx] Insulin Aspart [NovoLOG] 3 unit SUBCUT TIDMEALS #1 pen 04/15/17 [Rx] Past Medical History Other HEENT History: retinal vein occlusion Cardiovascular History: Reports: High Cholesterol, Hypertension Respiratory History: Reports: Sleep Apnea Gastrointestinal History: Reports: None Musculoskeletal History: Reports: Arthritis, Back Pain, Chronic Neurological History: Reports: Headaches, Chronic Endocrine/Metabolic History: Reports: Diabetes, Type II Hematologic History: Reports: Anemia Oncologic (Cancer) History: Reports: None - Past Surgical History HEENT Surgical History: Reports: Other (See Below) Other HEENT Surgeries/Procedures: eye shots every 5/6 wks Cardiovascular Surgical History: Reports: None GI Surgical History: Reports: Bariatric Procedure, Cholecystectomy Endocrine Surgical History: Reports: Thyroid Biopsy Neurological Surgical History: Reports: None Musculoskeletal Surgical History: Reports: Carpal Tunnel, Joint Replacement Social & Family History - Tobacco Use Smoking Status *Q: Never Smoker Second Hand Smoke Exposure: No - Caffeine Use Caffeine Use: Reports: Coffee - Alcohol Use Days Per Week of Alcohol Use: 0 - Recreational Drug Use Recreational Drug Use: No - Living Situation & Occupation Living situation: Reports: ED ROS GENERAL - Review of Systems Review Of Systems: See Below Constitutional: Reports: No Symptoms HEENT: Reports: No Symptoms Respiratory: Reports: No Symptoms Cardiovascular: Reports: No Symptoms Endocrine: Reports: No Symptoms GI/Abdominal: Reports: Abdominal Pain : Reports: No Symptoms Musculoskeletal: Reports: Back Pain Skin: Reports: No Symptoms Neurological: Reports: No Symptoms Psychiatric: Reports: No Symptoms Hematologic/Lymphatic: Reports: No Symptoms Immunologic: Reports: No Symptoms ED EXAM, GI/ABD - Physical Exam Exam: See Below Exam Limited By: No Limitations General Appearance: Alert, WD/WN, Moderate Distress Eyes: Bilateral: EOMI Ears: Normal TMs Throat/Mouth: Normal Inspection, Normal Oropharynx Head: Atraumatic, Normocephalic Neck: Normal Inspection, Supple, Non-Tender, Full Range of Motion Respiratory/Chest: No Respiratory Distress, Lungs Clear, Normal Breath Sounds Cardiovascular: Normal Peripheral Pulses, Regular Rate, Rhythm, No Edema, No Gallop GI/Abdominal Exam: Normal Bowel Sounds, Soft, No Distention, No Abnormal Bruit, Tender Back Exam: Normal Inspection, Full Range of Motion Extremities: Normal Inspection, Normal Range of Motion, Non-Tender, No Pedal Edema, Normal Capillary Refill Neurological: Alert, Oriented, CN II-XII Intact, Normal Cognition, Normal Gait, Normal Reflexes, No Motor/Sensory Deficits Psychiatric: Normal Affect, Normal Mood, Anxious Skin Exam: Warm, Dry, Intact, Normal Color, No Rash Lymphatic: No Adenopathy Course - Vital Signs Last Recorded V/S: Last Vital Signs Temp 37.6 C 04/19/17 02:30 Pulse 79 04/19/17 02:30 Resp 20 04/19/17 02:30 BP 158/79 H 04/19/17 02:30 Pulse Ox 98 04/19/17 02:30 - Orders/Labs/Meds Orders: Active Orders 24 hr Category Date Time Status Abdomen Pelvis w Cont [CT] Stat Exams 04/19/17 02:39 Taken Saline Lock Insert [OM.PC] Routine Oth 04/19/17 02:32 Ordered Labs: Laboratory Tests 04/19/17 04/19/17 04/19/17 Range/Units 03:18 03:38 03:38 WBC 7.7 (4.0-10.0) x10^3/uL RBC 3.55 L (4.00-5.50) x10^6/uL Hgb 11.0 L (12.0-16.0) g/dL Hct 32.3 L (33.0-47.0) % MCV 91.0 (78.0-93.0) fL MCH 31.0 (26.0-32.0) pg MCHC 34.1 (32.0-36.0) g/dL RDW Coeff of Justine 12.1 (10.0-15.0) % Plt Count 368 D (130-400) x10^3/uL Neut % (Auto) 54.1 (50.0-80.0) % Lymph % (Auto) 27.8 (25.0-50.0) % [place] % (Auto) 14.2 H (2.0-11.0) % Eos % (Auto) 3.6 (0.0-4.0) % Baso % (Auto) 0.3 (0.2-1.2) % Sodium 139 (136-145) mmol/L Potassium 3.5 (3.5-5.1) mmol/L Chloride 102 (98-107) mmol/L Carbon Dioxide 33 H (21-32) mmol/L BUN 28 H (7-18) mg/dL Creatinine 1.0 (0.55-1.02) mg/dL Est Cr Clr Drug Dosing TNP Estimated GFR (MDRD) 55 Glucose 204 H (74-106) mg/dL Calcium 8.5 (8.5-10.1) mg/dL Corrected Calcium 9.14 (8.5-10.1) mg/dL Total Bilirubin 0.3 (0.2-1.0) mg/dL AST 23 (15-37) U/L ALT 23 (14-59) U/L Alkaline Phosphatase 141 H (46-116) U/L C-Reactive Protein < 0.2 (<=0.9) mg/dL Total Protein 6.5 (6.4-8.2) g/dL Albumin 3.2 L (3.4-5.0) g/dL Globulin 3.3 Albumin/Globulin Ratio 0.97 Amylase 62 (25-115) U/L Lipase 194 (73-393) U/L Urine Color Yellow (YELLOW) Urine Appearance Clear (CLEAR) Urine pH 7.5 (5.0-8.0) Ur Specific [place] 1.015 Urine Protein Trace H (NEGATIVE) mg/dL Urine Glucose (UA) Negative (NEGATIVE) mg/dL Urine Ketones Negative (NEGATIVE) mg/dL Urine Occult Blood Negative (NEGATIVE) Urine Nitrite Negative (NEGATIVE) Urine Bilirubin Negative (NEGATIVE) Urine Urobilinogen 0.2 (0.2) EU/dL Ur Leukocyte Esterase Negative (NEGATIVE) Urine RBC 0-5 (NOT SEEN) /HPF Urine WBC 0-5 (NOT SEEN) /HPF Ur Squamous Epith Cells Rare (NEGATIVE) /HPF Urine Bacteria Not seen (NEGATIVE) /HPF Urine Mucus Not seen (NEGATIVE) /LPF Meds: Medications Discontinued Medications Generic Name Dose Route Start Last Admin Trade Name Freq PRN Reason Stop Dose Admin Hydromorphone HCl 1 mg 04/19/17 02:32 04/19/17 02:55 Dilaudid IVPUSH 04/19/17 02:33 1 mg ONETIME ONE Administration Sodium Chloride 1,000 mls @ 999 mls/hr 04/19/17 02:32 04/19/17 03:20 Normal Saline IV 04/19/17 03:32 999 mls/hr ONETIME ONE Administration Sodium Chloride 100 mls @ 2 mls/sec 04/19/17 07:01 04/19/17 08:29 Normal Saline IV 04/19/17 07:02 2 mls/sec ONETIME ONE Administration Iopamidol 100 ml 04/19/17 07:01 04/19/17 08:29 Isovue-300 (61%) IVPUSH 04/19/17 07:02 100 ml ONETIME ONE Administration Oxycodone/Acetaminophen 1 packet 04/19/17 05:54 04/19/17 06:06 Take Home: Acetamin/Oxycodon 325-5 Mg, 5 Pack PO 04/19/17 05:55 1 packet ONETIME ONE Administration Sodium Chloride 10 ml 04/19/17 02:32 Saline Flush FLUSH ASDIRECTED PRN Keep Vein Open - Re-Assessments/Exams Free Text/Narrative Re-Assessment/Exam: 04/19/17 10:47 Ct results from [facility] indicate possible Departure - Departure Time of Disposition: 06:25 Disposition: Home, Self-Care 01 Condition: Good Clinical Impression: Ureteropelvic junction (UPJ) obstruction, right - Discharge Information Referrals: PCP,Unobtain [Ordering Only Provider] - Forms: ED Department Discharge Additional Instructions: Your labwork and CT exam were largely negative The only exception would be a possible partial ureteralpelvic junction obstruction Follow up with your primary doctor as needed for symptom management Make sure you are staying hydrated by drinking plenty of water If you have any questions or concerns, please call us. - Problem List & Annotations (1) Ureteropelvic junction (UPJ) obstruction, right SNOMED Code(s): 38761220 Code(s): N13.5 - CROSSING VESSEL AND STRICTURE OF URETER W/O HYDRONEPHROSIS Status: Acute Priority: Low - Problem List Review Problem List Initiated/Reviewed/Updated: Yes - My Orders Last 24 Hours: My Active Orders 04/19/17 02:32 Saline Lock Insert [OM.PC] Routine 04/19/17 02:39 Abdomen Pelvis w Cont [CT] Stat - Assessment/Plan Last 24 Hours: My Active Orders 04/19/17 02:32 Saline Lock Insert [OM.PC] Routine 04/19/17 02:39 Abdomen Pelvis w Cont [CT] Stat Assessment:: abdominal pain ureteralpelvic junction obstruction Plan: Your labwork and CT exam were largely negative The only exception would be a possible partial ureteralpelvic junction obstruction Follow up with your primary doctor as needed for symptom management Make sure you are staying hydrated by drinking plenty of water If you have any questions or concerns, please call us.
[2017-04-19 04:03] LABS: CHLORIDE,CL 102 mmol/L (98-107); SODIUM,NA 139 mmol/L (136-145)
[2017-04-19] MEDS ORDERED: Take Home: Acetaminophen/oxyCODONE 325-5 MG, 5 Tab Pack PO ONE (05:54)
[2017-04-19] MEDS ORDERED: Iopamidol 612 MG/ML 100 ML Bottle IVPUSH ONE (07:01)
[2017-04-19] MEDS ORDERED: Sodium Chloride 0.9% 100 ML IV ONE (07:01)
== END 2017-04-19 06:25 | disposition home or self-care (01) ==
LOC: VM.ED 02:20
DX: N13.5 Crossing vessel and stricture of ureter without hydronephrosis (principal); E78.00 Pure hypercholesterolemia, unspecified; I10 Essential (primary) hypertension; E11.9 Type 2 diabetes mellitus without complications; Z86.2 Personal history of diseases of the blood and blood-forming organs and certain disorders involving the immune mechanism; Z88.6 Allergy status to analgesic agent; Z88.1 Allergy status to other antibiotic agents; Z79.4 Long term (current) use of insulin; Z79.899 Other long term (current) drug therapy; Z90.49 Acquired absence of other specified parts of digestive tract; Z96.652 Presence of left artificial knee joint; M19.90 Unspecified osteoarthritis, unspecified site; Z98.84 Bariatric surgery status
CPT/HCPCS: 36415; 74177; 80053; 81001; 82150; 83690; 85025; 86140; 96361; 96374; 99284; A9270; J1170; J7030; J7050; Q9967

== ENCOUNTER 2017-07-05 16:00 | Emergency (ER) | payer MEDICARE, OTHER ==
[2017-07-05] MEDS ORDERED: Sodium Chloride 0.9% 10 ML Syringe FLUSH PRN (16:12)
[2017-07-05] MEDS ORDERED: Sodium Chloride 0.9% 1,000 ML IV ONE (16:14)
[2017-07-05] MEDS ORDERED: Ketorolac 30 MG/ML SDV IVPUSH ONE (16:14)
[2017-07-05] MEDS ORDERED: Metoclopramide 10 MG/2 ML SDV IVPUSH ONE (16:15)
[2017-07-05 17:04] LABS: CHLORIDE,CL 103 mmol/L (98-107); SODIUM,NA 142 mmol/L (136-145)
[2017-07-05 17:24] VITALS: BP 112/52
--- NOTE | 2017-07-05 18:55 | EDM.PDOC ---
ED HPI GENERAL MEDICAL PROBLEM - General Chief Complaint: General Stated Complaint: headache Time Seen by Provider: 07/05/17 16:00 Source of Information: Reports: Patient, Family History Limitations: Reports: Altered Mental Status - History of Present Illness INITIAL COMMENTS - FREE TEXT/NARRATIVE: Pt. states that his was "normal" at noon-was alert, able to answer questions, etc. Pt. states he arrived home at approx. 1500 today and found pt. to be acutely confused and complaining of headache. Pt. states that the headache onset was gradual in nature, and states that she took a [place] 10/ 325mg for the pain. Pt. states that she is not experiencing any new neuro symtoms such as difficulty with speech or ambulation. She denies any aura, photophobia or other neuro symptoms. 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) (norco 10/325mg) - Related Data Allergies Allergy/AdvReac Type Severity Reaction Status Date / Time aspirin Allergy Cannot Verified 04/01/17 14:28 Remember NSAIDS (Non-Steroidal Allergy Other Verified 07/05/17 17:41 Anti-Inflamma Wbptiwl-Emw-Ysc Reductase Allergy Cannot Verified 04/01/17 14:28 Inhibitor Remember atorvastatin [From Lipitor] AdvReac Muscle Verified 04/07/17 08:29 Aches levofloxacin [From Levaquin] AdvReac Leg Cramps Verified 04/07/17 08:29 lisinopril [From Zestoretic] AdvReac Cough Verified 04/01/17 12:40 Home Meds: Home Meds Bisacodyl [Dulcolax] 5 mg PO BID PRN 04/01/17 [History] Calcium Citrate/Vitamin D3 [Calcium Citrate - Vit D Tablet] 1 tab PO BID [History] Hydrochlorothiazide 12.5 mg PO DAILY 04/01/17 [History] Insulin Glarg,Human.Rec.Analog [LantUS Solostar] 23 units SUBCUT BEDTIME [History] Lactobacillus Acidophilus [Probiotic] 1 cap PO DAILY 04/01/17 [History] Magnesium Hydroxide [Milk of Magnesia] 30 ml PO BID PRN 04/01/17 [History] Magnesium Oxide 500 mg PO DAILY 04/01/17 [History] Metoprolol Tartrate 50 mg PO BID 04/01/17 [History] Multivitamin/Iron/Folic Acid [Multi-Day Plus Iron Tablet] 1 each PO BEDTIME [History] Multivitamin/Iron/Folic Acid [Multi-Day Plus Iron Tablet] 2 tab PO DAILY [History] Omeprazole 20 mg PO DAILY 04/01/17 [History] Polyethylene Glycol 3350 [MiraLAX] 17 gm PO DAILY 04/01/17 [History] Polyvinyl Alcohol/Povidone [Artificial Tears Drops] 1 drop EYERT Q4H PRN [History] Sennosides/Docusate Sodium [Senna-Docusate Sodium] 1 tab PO BID 04/01/17 [ History] Acetaminophen/HYDROcodone [[place] 325-10 MG] 1 tab PO Q6H PRN #60 tablet [Rx] Insulin Aspart [NovoLOG] 3 unit SUBCUT TIDMEALS #1 pen 04/15/17 [Rx] Hydrocodone/Acetaminophen [Hydrocodon-Acetaminoph 7.5-325] 1 each PO Q4H PRN 12/17 [History] Past Medical History Other HEENT History: retinal vein occlusion Cardiovascular History: Reports: High Cholesterol, Hypertension Respiratory History: Reports: Sleep Apnea Gastrointestinal History: Reports: None 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 History: Reports: Renal 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: Musculoskeletal History: Reports: Arthritis, Back Pain, Chronic Neurological History: Reports: Headaches, Chronic Endocrine/Metabolic History: Reports: Diabetes, Type II Hematologic History: Reports: Anemia Oncologic (Cancer) History: Reports: None - Past Surgical History HEENT Surgical History: Reports: Other (See Below) Other HEENT Surgeries/Procedures: eye shots every 5/6 wks Cardiovascular Surgical History: Reports: None GI Surgical History: Reports: Bariatric Procedure, Cholecystectomy Endocrine Surgical History: Reports: Thyroid Biopsy Neurological Surgical History: Reports: None Musculoskeletal Surgical History: Reports: Carpal Tunnel, Joint Replacement Social & Family History - Tobacco Use Smoking Status *Q: Unknown Ever Smoked Second Hand Smoke Exposure: No - Caffeine Use Caffeine Use: Reports: Coffee - Alcohol Use Days Per Week of Alcohol Use: 0 - Recreational Drug Use Recreational Drug Use: No - Living Situation & Occupation Living situation: Reports: ED ROS GENERAL - Review of Systems Review Of Systems: See Below Constitutional: Reports: No Symptoms HEENT: Reports: No Symptoms Respiratory: Reports: No Symptoms Cardiovascular: Reports: No Symptoms Endocrine: Reports: No Symptoms GI/Abdominal: Reports: No Symptoms : Reports: No Symptoms Musculoskeletal: Reports: No Symptoms Skin: Reports: No Symptoms Neurological: Reports: Headache, Paresthesia (paresthesia 2nd, 3rd, 4th digit of R hand (pt. states is chronic) ) Hematologic/Lymphatic: Reports: No Symptoms Immunologic: Reports: No Symptoms ED EXAM, GENERAL - Physical Exam Exam: See Below General Appearance: Alert, WD/WN Eye Exam: Bilateral Eye: Normal Fundi, Normal Inspection, PERRL Ears: Normal External Exam, Normal Canal, Hearing Grossly Normal, Normal TMs Nose: Normal Inspection, Normal Mucosa, No Blood Throat/Mouth: Normal Inspection, Normal Lips, Normal Teeth, Normal Oropharynx, No Airway Compromise Head: Atraumatic, Normocephalic Neck: Normal Inspection, Supple, Non-Tender, Full Range of Motion Respiratory/Chest: No Respiratory Distress, Lungs Clear, Normal Breath Sounds, No Accessory Muscle Use Cardiovascular: Normal Peripheral Pulses, Regular Rate, Rhythm, No Edema GI/Abdominal: Normal Bowel Sounds, Soft, Non-Tender Extremities: Normal Inspection, Normal Range of Motion, Non-Tender, Normal Capillary Refill Neurological: Alert, Oriented, CN II-XII Intact, Disoriented, Slow to Respond, Memory Loss Recent Events Psychiatric: Normal Affect, Normal Mood Skin Exam: Warm, Dry, Intact, Normal Color, No Rash Lymphatic: No Adenopathy Course - Vital Signs Last Recorded V/S: Last Vital Signs Temp 36.4 C 07/05/17 16:00 Pulse 61 07/05/17 16:48 Resp 16 07/05/17 16:00 BP 112/52 L 07/05/17 17:23 Pulse Ox 97 07/05/17 17:23 - Orders/Labs/Meds Orders: Active Orders 24 hr Category Date Time Status Accu Check [Blood Glucose Check, Bedside] [RC] ONETIME Care 07/05/17 16:44 Active Head wo Cont [CT] Stat Exams 07/05/17 16:13 Taken Peripheral IV Insertion Adult [OM.PC] Routine Oth 07/05/17 16:13 Ordered Labs: Laboratory Tests 07/05/17 07/05/17 07/05/17 Range/Units 16:39 16:39 16:39 WBC 8.5 (4.0-10.0) x10^3/uL RBC 4.02 (4.00-5.50) x10^6/uL Hgb 12.4 (12.0-16.0) g/dL Hct 36.6 (33.0-47.0) % MCV 91.0 (78.0-93.0) fL MCH 30.8 (26.0-32.0) pg MCHC 33.9 (32.0-36.0) g/dL RDW Coeff of Justine 12.7 (10.0-15.0) % Plt Count 214 D (130-400) x10^3/uL Neut % (Auto) 56.7 (50.0-80.0) % Lymph % (Auto) 29.8 (25.0-50.0) % [place] % (Auto) 10.6 (2.0-11.0) % Eos % (Auto) 2.7 (0.0-4.0) % Baso % (Auto) 0.2 (0.2-1.2) % PT 9.4 L (9.8-11.8) SEC INR 0.9 L (2.0-3.5) Sodium 142 (136-145) mmol/L Potassium 3.0 L (3.5-5.1) mmol/L Chloride 103 (98-107) mmol/L Carbon Dioxide 32 (21-32) mmol/L BUN 21 H (7-18) mg/dL Creatinine 0.8 (0.55-1.02) mg/dL Est Cr Clr Drug Dosing TNP Estimated GFR (MDRD) > 60 Glucose 105 (74-106) mg/dL Calcium 9.5 (8.5-10.1) mg/dL Corrected Calcium 9.74 (8.5-10.1) mg/dL Total Bilirubin 0.3 (0.2-1.0) mg/dL AST 43 H (15-37) U/L ALT 60 H (14-59) U/L Alkaline Phosphatase 107 (46-116) U/L C-Reactive Protein < 0.2 (<=0.9) mg/dL Total Protein 6.9 (6.4-8.2) g/dL Albumin 3.7 (3.4-5.0) g/dL Globulin 3.2 Albumin/Globulin Ratio 1.16 Meds: Medications Discontinued Medications Generic Name Dose Route Start Last Admin Trade Name [place] PRN Reason Stop Dose Admin Sodium Chloride 1,000 mls @ 1,000 mls/hr 07/05/17 16:14 07/05/17 16:40 Normal Saline IV 07/05/17 17:13 1,000 mls/hr .BOLUS ONE Administration Ketorolac Tromethamine 30 mg 07/05/17 16:14 07/05/17 16:41 Toradol IVPUSH 07/05/17 16:15 30 mg ONETIME ONE Administration Metoclopramide HCl 10 mg 07/05/17 16:15 07/05/17 16:40 Reglan IVPUSH 07/05/17 16:16 10 mg ONETIME ONE Administration Sodium Chloride 10 ml 07/05/17 16:12 Saline Flush FLUSH ASDIRECTED PRN Keep Vein Open - Radiology Interpretation Free Text/Narrative:: brain CT without contrast was negative - Re-Assessments/Exams Free Text/Narrative Re-Assessment/Exam: 07/05/17 19:10 Pt. was given reglan 10mg IV and toradol 30mg IV, as well as a liter of NS. Pt. reported her migraine completely resolved. Departure - Departure Time of Disposition: 17:30 Disposition: Home, Self-Care 01 Clinical Impression: Migraine - Discharge Information Instructions: Migraine Headache, [id number] Referrals: Brianna Briceño, DO [Primary Care Provider] - Forms: ED Department Discharge Additional Instructions: Home to rest. Follow-up in clinic in 7-10 days. Return to ER if headache is not helped by Ibuprofen. Return to ER if you have trouble walking, speaking, or severe headache. - Problem List & Annotations (1) Migraine SNOMED Code(s): 79939750 Code(s): G43.909 - MIGRAINE, UNSP, NOT INTRACTABLE, WITHOUT STATUS MIGRAINOSUS Status: Acute Qualifiers: Intractability: not intractable - My Orders Last 24 Hours: My Active Orders 07/05/17 16:13 Head wo Cont [CT] Stat Peripheral IV Insertion Adult [OM.PC] Routine 07/05/17 16:44 Accu Check [Blood Glucose Check, Bedside] [RC] ONETIME - Assessment/Plan Last 24 Hours: My Active Orders 07/05/17 16:13 Head wo Cont [CT] Stat Peripheral IV Insertion Adult [OM.PC] Routine 07/05/17 16:44 Accu Check [Blood Glucose Check, Bedside] [RC] ONETIME Assessment:: migraine headache Plan: Home to rest. Follow-up in clinic in 5-7 days. Return to ER if worsening headache, confusion, numbness/tingling in extremities.
== END 2017-07-05 18:08 | disposition home or self-care (01) ==
LOC: VM.ED 16:00
DX: G43.909 Migraine, unspecified, not intractable, without status migrainosus (principal); E11.9 Type 2 diabetes mellitus without complications; E78.00 Pure hypercholesterolemia, unspecified; I10 Essential (primary) hypertension; M19.90 Unspecified osteoarthritis, unspecified site; Z88.8 Allergy status to other drugs, medicaments and biological substances; Z88.1 Allergy status to other antibiotic agents; Z79.4 Long term (current) use of insulin; Z79.899 Other long term (current) drug therapy; Z79.82 Long term (current) use of aspirin; Z86.79 Personal history of other diseases of the circulatory system; Z90.49 Acquired absence of other specified parts of digestive tract; Z98.84 Bariatric surgery status
CPT/HCPCS: 36415; 70450; 80053; 82962; 85025; 85610; 86140; 96361; 96374; 96375; 99284; J1885; J2765; J7030; 99283-GF

== ENCOUNTER 2018-10-24 06:27 | Day surgery (SDC) | payer MEDICARE, OTHER ==
[~2018-10-24 06:27] MED LIST: Lactated Ringers 1,000 ML IV SCH
[2018-10-24] MEDS ORDERED: Propofol 200 MG/20 ML SDV ONE (07:50)
[2018-10-24] MEDS ORDERED: fentaNYL 100 MCG/2 ML SDV ONE (07:50)
--- NOTE | 2018-10-24 08:49 | OR ---
PREOPERATIVE DIAGNOSES: Family history of colon cancer, personal history of polyps. POSTOPERATIVE DIAGNOSES: Sigmoid polyps x3, sigmoid diverticulosis. PROCEDURE PROPOSED: Total flexible colonoscopy. PROCEDURE DONE: Total flexible colonoscopy with polypectomy x3. INDICATION: This is a 73-year-old female, who comes in for colonic surveillance due to history of polyps and a family history of colon cancer. Her last examination was about 5 years ago. TECHNIQUE: The patient was brought to the endoscopy suite, placed in left lateral decubitus position. She was sedated per PARTITION SETTER with propofol. The flexible video colonoscope was then passed transanally and under visualization advanced to the cecum. Examination revealed normal ascending, transverse, descending colon and the sigmoid colon. At about 45 cm, she had 3 small polyps in close proximity that were all removed by cold biopsy forceps technique and submitted for pathologic examination. She was also noted to have moderate sigmoid diverticulosis and the rectum was then normal as the scope was withdrawn. She tolerated the procedure well. IMPRESSION: 1. Sigmoid diverticulosis. 2. Sigmoid polyps x3 removed. 3. Personal history of polyps and family history of colon cancer. PLAN: The patient will be sent a letter with pathology report. I felt that she should have another examination again in 5 years time. SCM: 10/24/2018 08:31:25 MODL: 10/24/2018 08:44:26 /[id number]
[2018-10-24 09:33] VITALS: BP 127/59
== END 2018-10-24 10:49 | disposition home or self-care (01) ==
LOC: VM.SDS 06:27
PROVIDERS: ATTEND Surgery
DX: Z12.11 Encounter for screening for malignant neoplasm of colon (principal); D12.5 Benign neoplasm of sigmoid colon; K57.30 Diverticulosis of large intestine without perforation or abscess without bleeding; E11.9 Type 2 diabetes mellitus without complications; E66.9 Obesity, unspecified; Z68.27 Body mass index [BMI] 27.0-27.9, adult; I10 Essential (primary) hypertension; K25.9 Gastric ulcer, unspecified as acute or chronic, without hemorrhage or perforation; G47.33 Obstructive sleep apnea (adult) (pediatric); Z99.89 Dependence on other enabling machines and devices; G89.29 Other chronic pain; M54.5 Low back pain; Z86.010 Personal history of colon polyps; Z79.4 Long term (current) use of insulin; Z79.899 Other long term (current) drug therapy; Z80.0 Family history of malignant neoplasm of digestive organs; Z88.8 Allergy status to other drugs, medicaments and biological substances
CPT/HCPCS: 00811; 82962; J2704; J3010; J7120

== ENCOUNTER 2020-02-15 17:35 | Inpatient (IN) | payer MEDICARE, OTHER ==
[2020-02-15] MEDS ORDERED: fentaNYL 100 MCG/2 ML SDV IVPUSH ONE (18:01)
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
[2020-02-15 18:10] LABS: CHLORIDE,CL 101 mmol/L (98-107); SODIUM,NA 141 mmol/L (136-145)
[2020-02-15] MEDS ORDERED: Ondansetron 4 MG/2 ML SDV IVPUSH ONE (18:12)
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
[2020-02-15 18:33] LABS: ANION GAP 16.8 mmol/L (10-20)
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
[2020-02-15] MEDS ORDERED: Lactated Ringers 1,000 ML IV ONE (19:09)
[2020-02-15] MEDS ORDERED: Ondansetron 4 MG/2 ML SDV IV PRN (19:28)
[2020-02-15] MEDS ORDERED: HYDROmorphone 1 MG/ML Syringe IVPUSH PRN (19:28)
[2020-02-15] MEDS ORDERED: Hypromellose 0.3% Ophth Soln 15 ML Bottle EYERT PRN (19:32)
[2020-02-15] MEDS: Metoprolol Tartrate 50 MG Tab PO SCH (21:08)
[2020-02-15] MEDS: Calcium Citrate/Vitamin D3 315 MG-250 Unit Tab PO SCH (21:08)
[2020-02-15] MEDS: Insulin Glarg,Human.Rec.Analog 100 Unit/ML SUBCUT SCH (21:10)
[2020-02-15] MEDS: HYDROmorphone 0.5 MG/0.5 ML Syringe IVPUSH PRN (22:19)
[2020-02-15] MEDS: Sodium Chloride 0.9% 1,000 ML IV SCH (22:45)
[2020-02-16] MEDS: HYDROmorphone 0.5 MG/0.5 ML Syringe IVPUSH PRN ×5 (01:18→20:29)
[2020-02-16] MEDS: Sodium Chloride 0.9% 1,000 ML IV SCH ×2 (06:45→20:11)
[2020-02-16] MEDS: Omeprazole 20 MG Cap.CR PO SCH (09:21)
[2020-02-16] MEDS: Hydrochlorothiazide 12.5 MG Cap PO SCH (09:21)
[2020-02-16] MEDS: Loratadine 10 MG Tab PO SCH (09:21)
[2020-02-16] MEDS: Magnesium Oxide 400 MG Tab PO SCH (09:22)
[2020-02-16] MEDS: Metoprolol Tartrate 50 MG Tab PO SCH ×2 (09:22→20:11)
[2020-02-16] MEDS: Calcium Citrate/Vitamin D3 315 MG-250 Unit Tab PO SCH ×2 (09:23→20:11)
[2020-02-16] MEDS: Multivitamins with Iron/Calcium/Folic Acid/Minerals Tab PO SCH (09:23)
[2020-02-16] MEDS: Insulin Lispro 100 Units/ML 3 ML Vial SUBCUT SCH ×2 (11:27→18:10)
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
[2020-02-16] MEDS: Acetaminophen/oxyCODONE 325-5 MG Tab PO PRN ×2 (13:38→18:00)
[2020-02-16] MEDS: Insulin Glarg,Human.Rec.Analog 100 Unit/ML SUBCUT SCH (20:13)
[2020-02-17] MEDS: Acetaminophen/oxyCODONE 325-5 MG Tab PO PRN ×3 (00:36→21:47)
[2020-02-17] MEDS: HYDROmorphone 0.5 MG/0.5 ML Syringe IVPUSH PRN ×3 (00:38→12:53)
[2020-02-17] MEDS: Magnesium Oxide 400 MG Tab PO SCH (07:48)
[2020-02-17] MEDS: Metoprolol Tartrate 50 MG Tab PO SCH ×2 (07:49→20:41)
[2020-02-17] MEDS: Loratadine 10 MG Tab PO SCH (07:49)
[2020-02-17] MEDS: Hydrochlorothiazide 12.5 MG Cap PO SCH (07:49)
[2020-02-17] MEDS: Multivitamins with Iron/Calcium/Folic Acid/Minerals Tab PO SCH (07:50)
[2020-02-17] MEDS: Calcium Citrate/Vitamin D3 315 MG-250 Unit Tab PO SCH ×2 (07:50→20:41)
[2020-02-17] MEDS: Omeprazole 20 MG Cap.CR PO SCH (07:50)
[2020-02-17] MEDS: Insulin Lispro 100 Units/ML 3 ML Vial SUBCUT SCH ×2 (11:55→19:02)
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
--- NOTE | 2020-02-17 15:27 | CR ---
[id number] RAD/RAD Hand Left 3V EXAM: RAD Hand Left 3V INDICATION: INCREASED SWELLING AND PAIN. COMPARISON: February 15, 2020. DISCUSSION: Increased soft tissue swelling throughout the wrist and hand. Age-indeterminate distal radius fracture, favor chronic. MRI could further assess for an acute fracture. Moderate degenerative changes throughout the hand and wrist. IMPRESSION: 1. Increased soft tissue swelling. 2. Probable chronic healed distal radius fracture. MRI could further assess for an acute fracture. Jono Torres MD 02/17/20 1526 Thank you for allowing us to participate in the care of your patient.
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
[2020-02-17] MEDS: HYDROmorphone 1 MG/ML Syringe IVPUSH PRN ×2 (18:53→21:46)
[2020-02-17] MEDS: Insulin Glarg,Human.Rec.Analog 100 Unit/ML SUBCUT SCH (20:42)
[2020-02-17] MEDS ORDERED: Magnesium Hydroxide 400 MG/5 ML Susp 30 ML Cup PO ONE (22:02)
[2020-02-17] MEDS: Sodium Chloride 0.9% 1,000 ML IV SCH (23:58)
[2020-02-18] MEDS: HYDROmorphone 1 MG/ML Syringe IVPUSH PRN ×2 (02:48→07:05)
[2020-02-18] MEDS: Acetaminophen/oxyCODONE 325-5 MG Tab PO PRN (07:06)
[2020-02-18] MEDS ORDERED: Bisacodyl 10 MG Supp RECTAL ONE (08:35)
[2020-02-18] MEDS ORDERED: Lactulose Soln 10 GM/15 ML 30 ML UD Cup PO SCH (08:45)
[2020-02-18] MEDS: Calcium Citrate/Vitamin D3 315 MG-250 Unit Tab PO SCH ×2 (08:53→20:02)
[2020-02-18] MEDS: Metoprolol Tartrate 50 MG Tab PO SCH ×2 (08:53→20:01)
[2020-02-18] MEDS: Multivitamins with Iron/Calcium/Folic Acid/Minerals Tab PO SCH (08:53)
[2020-02-18] MEDS: Magnesium Oxide 400 MG Tab PO SCH (08:55)
[2020-02-18] MEDS: Acetaminophen/HYDROcodone 325-10 MG Tab PO SCH ×4 (08:56→20:01)
[2020-02-18] MEDS: Hydrochlorothiazide 12.5 MG Cap PO SCH (08:57)
[2020-02-18] MEDS: Omeprazole 20 MG Cap.CR PO SCH (08:58)
[2020-02-18] MEDS: Loratadine 10 MG Tab PO SCH (08:58)
[2020-02-18] MEDS: Lidocaine 4% 1 each Patch TOP SCH (08:59)
[2020-02-18 11:31] LABS: CHLORIDE,CL 105 mmol/L (98-107); SODIUM,NA 144 mmol/L (136-145)
[2020-02-18 11:32] LABS: ANION GAP 12.4 mmol/L (10-20)
[2020-02-18] MEDS: Polyethylene Glycol 3350 Powder 17 GM Packet PO SCH (12:24)
[2020-02-18] MEDS: Enoxaparin 40 MG/0.4 ML Syringe SUBCUT SCH (12:24)
[2020-02-18] MEDS: Potassium Chloride 10 MEQ Tab.ER PO SCH (12:25)
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
[2020-02-18] MEDS: Insulin Lispro 100 Units/ML 3 ML Vial SUBCUT SCH ×2 (12:45→17:32)
[2020-02-18] MEDS: HYDROmorphone 0.5 MG/0.5 ML Syringe IVPUSH PRN ×2 (15:04→20:09)
[2020-02-18] MEDS: Insulin Glarg,Human.Rec.Analog 100 Unit/ML SUBCUT SCH (20:20)
[2020-02-18] MEDS: Sulfamethoxazole/Trimethoprim 800-160 MG Tab PO SCH (22:12)
[2020-02-19] MEDS: Acetaminophen/oxyCODONE 325-5 MG Tab PO PRN ×2 (01:12→09:26)
[2020-02-19] MEDS ORDERED: Sodium Chloride 0.9% 10 ML Syringe IV PRN (04:35)
[2020-02-19] MEDS: HYDROmorphone 0.5 MG/0.5 ML Syringe IVPUSH PRN ×3 (04:36→23:47)
[2020-02-19 07:07] LABS: CHLORIDE,CL 104 mmol/L (98-107); SODIUM,NA 143 mmol/L (136-145)
[2020-02-19 07:08] LABS: ANION GAP 10.9 mmol/L (10-20)
[2020-02-19] MEDS: Potassium Chloride 10 MEQ Tab.ER PO SCH (07:55)
[2020-02-19] MEDS: Sulfamethoxazole/Trimethoprim 800-160 MG Tab PO SCH ×2 (07:55→19:37)
[2020-02-19] MEDS: Lidocaine 4% 1 each Patch TOP SCH ×2 (07:55→17:12)
[2020-02-19] MEDS: Metoprolol Tartrate 50 MG Tab PO SCH ×2 (07:56→19:37)
[2020-02-19] MEDS: Omeprazole 20 MG Cap.CR PO SCH (07:57)
[2020-02-19] MEDS: Hydrochlorothiazide 12.5 MG Cap PO SCH (07:57)
[2020-02-19] MEDS: Magnesium Oxide 400 MG Tab PO SCH (07:57)
[2020-02-19] MEDS: Acetaminophen/HYDROcodone 325-10 MG Tab PO SCH ×4 (07:57→19:38)
[2020-02-19] MEDS: Calcium Citrate/Vitamin D3 315 MG-250 Unit Tab PO SCH ×2 (07:57→19:40)
[2020-02-19] MEDS: Polyethylene Glycol 3350 Powder 17 GM Packet PO SCH (07:59)
[2020-02-19] MEDS ORDERED: Magnesium Sulfate/Water 4 GM in Premix Bag 1 BAG IV ONE (08:26)
[2020-02-19] MEDS: Insulin Lispro 100 Units/ML 3 ML Vial SUBCUT SCH ×2 (11:37→17:15)
[2020-02-19] MEDS: Enoxaparin 40 MG/0.4 ML Syringe SUBCUT SCH (11:38)
--- NOTE | 2020-02-19 18:47 | CR ---
[id number] RAD/RAD Chest PA And Lateral EXAM: RAD Chest PA And Lateral CLINICAL DATA: CHEST PAIN TRAUMA COMPARISON: CORRELATION IS MADE WITH FEBRUARY 15, 2020 FINDINGS: Left paratracheal mass effect is stable Likely this relates to the thyroid The lungs are clear There is no pneumothorax There is no change in the cardiomediastinal contour IMPRESSION: NO ACUTE PROCESS. CONSIDER CONTRAST CT CHEST AND NECK IF FURTHER EVALUATION IS NEEDED Vito Guo MD 02/19/20 0925 Thank you for allowing us to participate in the care of your patient.
[2020-02-19] MEDS: Insulin Glarg,Human.Rec.Analog 100 Unit/ML SUBCUT SCH (19:40)
[2020-02-19] MEDS ORDERED: REMOVE LIDOCAINE TRDERM SCH (20:00)
[2020-02-19] MEDS ORDERED: Gabapentin 100 MG Cap PO SCH (20:00)
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
[2020-02-20] MEDS: Acetaminophen/oxyCODONE 325-5 MG Tab PO PRN (02:54)
[2020-02-20 06:56] LABS: ANION GAP 13.5 mmol/L (10-20)
[2020-02-20] MEDS: Acetaminophen/HYDROcodone 325-10 MG Tab PO SCH ×2 (07:33→11:55)
[2020-02-20] MEDS: Hydrochlorothiazide 12.5 MG Cap PO SCH (07:33)
[2020-02-20] MEDS: Calcium Citrate/Vitamin D3 315 MG-250 Unit Tab PO SCH (07:33)
[2020-02-20] MEDS: Magnesium Oxide 400 MG Tab PO SCH (07:33)
[2020-02-20] MEDS: Omeprazole 20 MG Cap.CR PO SCH (07:33)
[2020-02-20] MEDS: Lidocaine 4% 1 each Patch TOP SCH ×2 (07:33)
[2020-02-20] MEDS: Potassium Chloride 10 MEQ Tab.ER PO SCH (07:34)
[2020-02-20] MEDS: Sulfamethoxazole/Trimethoprim 800-160 MG Tab PO SCH (07:34)
[2020-02-20] MEDS: Polyethylene Glycol 3350 Powder 17 GM Packet PO SCH (07:34)
[2020-02-20] MEDS: Metoprolol Tartrate 50 MG Tab PO SCH (07:34)
[2020-02-20] MEDS: Enoxaparin 40 MG/0.4 ML Syringe SUBCUT SCH (11:55)
[2020-02-20] MEDS ORDERED: Magnesium Sulfate/Water 2 GM in Premix Bag 1 BAG IV ONE (12:40)
[2020-02-20] MEDS: Insulin Lispro 100 Units/ML 3 ML Vial SUBCUT SCH (12:59)
[2020-02-20 15:36] VITALS: BP 122/69; PULSE 69
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
== END 2020-02-20 15:40 | disposition home or self-care (01) | DRG 605 ==
LOC: VM.ED 17:35 → VM.MS 18:41 → OBSVTOIN 02-17 12:30
PROVIDERS: ADMIT Physician Assistant Medical; ATTEND Internal Medicine
DX: G89.11 Acute pain due to trauma (principal); S20.219A Contusion of unspecified front wall of thorax, initial encounter; N39.0 Urinary tract infection, site not specified; S63.502A Unspecified sprain of left wrist, initial encounter; S86.911A Strain of unspecified muscle(s) and tendon(s) at lower leg level, right leg, initial encounter; S80.01XA Contusion of right knee, initial encounter; S60.222A Contusion of left hand, initial encounter; G47.30 Sleep apnea, unspecified; Z98.84 Bariatric surgery status; K59.09 Other constipation; K59.00 Constipation, unspecified; M48.00 Spinal stenosis, site unspecified; E11.9 Type 2 diabetes mellitus without complications; D50.9 Iron deficiency anemia, unspecified; Z90.710 Acquired absence of both cervix and uterus; Z96.659 Presence of unspecified artificial knee joint; Z85.89 Personal history of malignant neoplasm of other organs and systems; Z88.6 Allergy status to analgesic agent; Z88.1 Allergy status to other antibiotic agents; I10 Essential (primary) hypertension; E66.9 Obesity, unspecified; Z79.891 Long term (current) use of opiate analgesic; G89.29 Other chronic pain; E83.42 Hypomagnesemia; M47.816 Spondylosis without myelopathy or radiculopathy, lumbar region; B96.20 Unspecified Escherichia coli [E. coli] as the cause of diseases classified elsewhere; D64.9 Anemia, unspecified; Z79.4 Long term (current) use of insulin; Z79.899 Other long term (current) drug therapy; E78.00 Pure hypercholesterolemia, unspecified; I25.10 Atherosclerotic heart disease of native coronary artery without angina pectoris; Z87.01 Personal history of pneumonia (recurrent); Z88.8 Allergy status to other drugs, medicaments and biological substances; V86.99XA Unspecified occupant of other special all-terrain or other off-road motor vehicle injured in nontraffic accident, initial encounter
CPT/HCPCS: 36415; 71045; 71046; 72170; 73130-LT; 73560-RT; 80048; 81001; 82550; 82962; 83735; 84484; 85025; 85027; 85610; 85730; 87086; 87088; 87186; 93005; 94760; 96361; 96374; 96375; 96376; 97110-GP; 97116-GP; 97161-GP; 97165-GO; 97530-GP; 99220; 99225; 99285-25; A9270-GY; G0378; J1170; J1650; J1815-GY; J2405; J3010; J3475; J7030; J7120

== ENCOUNTER 2020-05-08 18:19 | Emergency (ER) | payer MEDICARE, OTHER ==
--- NOTE | 2020-05-08 18:37 | EDM.PDOC ---
ED HPI GENERAL MEDICAL PROBLEM - General Stated Complaint: BLADDER PAIN Time Seen by Provider: 05/08/20 18:29 Source of Information: Reports: Patient History Limitations: Reports: No Limitations - History of Present Illness INITIAL COMMENTS - FREE TEXT/NARRATIVE: Patient comes emergency department today with complaints of decreased urination and bladder pain. This patient yesterday had a right ureteral stent placed for a ureteral stricture at [facility]. Prior to the placement of this stent the patient had pain on the right side of her abdomen radiating around and up to her right flank. She did not have this pain when she went home after the procedure yesterday. Today she has very little urge to urinate. It is painful when she urinates. She urinates only small amounts. Has no fever or chills. No back pain. The pain is in the suprapubic region. No hematuria. No other pain in her abdomen. No nausea no vomiting. No bloating or distention. Suprapubic Pain Score (Numeric/FACES): 8 - Related Data Allergies Allergy/AdvReac Type Severity Reaction Status Date / Time aspirin Allergy Cannot Verified 05/08/20 18:38 Remember NSAIDS (Non-Steroidal Allergy Other Verified 05/08/20 18:38 Anti-Inflamma Hjqjtsi-Pkf-Dem Reductase Allergy Cannot Verified 05/08/20 18:38 Inhibitor Remember atorvastatin [From Lipitor] AdvReac Muscle Verified 05/08/20 18:38 Aches glipizide AdvReac Chest Pain Verified 05/08/20 18:38 hydroxyzine [From Atarax] AdvReac Anxiety Verified 05/08/20 18:38 levofloxacin [From Levaquin] AdvReac Leg Cramps Verified 05/08/20 18:38 lisinopril [From Zestoretic] AdvReac Cough Verified 05/08/20 18:38 Home Meds: Home Meds Calcium Citrate/Vitamin D3 [Calcium Citrate - Vit D Tablet] 1 tab PO BID 04/01/17 [History] Magnesium Oxide 500 mg PO DAILY 04/01/17 [History] Metoprolol Tartrate 50 mg PO BID 04/01/17 [History] Multivitamin/Iron/Folic Acid [Multi-Day Plus Iron Tablet] 2 tab PO DAILY 04/01/17 [History] Omeprazole 20 mg PO DAILY 04/01/17 [History] Polyvinyl Alcohol/Povidone [Artificial Tears Drops] 1 drop EYERT Q4H PRN 04/01/17 [History] hydroCHLOROthiazide [Hydrochlorothiazide] 12.5 mg PO DAILY 04/01/17 [History] Cetirizine [ZyrTEC] 10 mg PO DAILY 10/23/18 [History] Insulin Glargine,Hum.Rec.Anlog [Basaglar Kwikpen U-100] 16 unit SQ BEDTIME 10/23/18 [History] Acetaminophen/oxyCODONE [Percocet 325-5 MG] 1 tab PO Q6H PRN tablet 02/20/20 [Rx] Docusate Sodium/Sennosides [Senna Plus] 2 tab PO BID tablet 02/20/20 [Rx] Gabapentin [Neurontin] 100 mg PO BEDTIME cap 02/20/20 [Rx] Hydrocodone/Acetaminophen [Hydrocodone-Acetamin 7.5-325] 1 each PO QID PRN #0 02/20/20 [Rx] Insulin Lispro [HumaLOG] 2 unit SUBCUT DAILY@1200 vial 02/20/20 [Rx] Insulin Lispro [HumaLOG] 3 unit SUBCUT DAILY@1700 vial 02/20/20 [Rx] Lidocaine 4% [Aspercreme 4%] 1 each TOP DAILY patch 02/20/20 [Rx] Sulfamethoxazole/Trimethoprim [Septra DS] 1 tab PO BID #3 tablet 02/20/20 [Rx] polyethylene glycoL 3350 [MiraLAX] 17 gm PO DAILY PRN packet 02/20/20 [Rx] Phenazopyridine [Pyridium] 100 mg PO TID PRN #6 tab 05/08/20 [Rx] Past Medical History HEENT History: Reports: Other (See Below) Other HEENT History: Central retinal vein occlusion Cardiovascular History: Reports: High Cholesterol, Hypertension Other Cardiovascular History: Carotid artery stenosis. varicose veins Respiratory History: Reports: Pneumonia, Recurrent, Sleep Apnea Other Respiratory History: uses CPAP Gastrointestinal History: Reports: Other (See Below) Other Gastrointestinal History: Anastomotic ulcer S/P gastric bypass. Chronic constipation due to opioid use 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 History: Reports: Other (See Below) Other 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 History: dilated renal pelvis. 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 spinal stenosis. closed compr ession Fx of L3. greater trochanteris bursitis of left hip Neurological History: Reports: Migraines Psychiatric History: Reports: Other (See Below) Other Psychiatric History: Chronic continuous use of opioids. pain management agreement Endocrine/Metabolic History: Reports: Diabetes, Type II, Obesity/BMI 30+, Other (See Below) Other Endocrine/Metabolic History: Nontoxic uninodular goiter Hematologic History: Reports: Anemia, Iron Deficiency Oncologic (Cancer) History: Reports: Other (See Below) Other Oncologic History: endometrial cancer - Past Surgical History Head Surgeries/Procedures: Reports: None HEENT Surgical History: Reports: Other (See Below) Other HEENT Surgeries/Procedures: eye shots every 5/6 wks Cardiovascular Surgical History: Reports: None GI Surgical History: Reports: Bariatric Procedure Female Surgical History: Reports: Hysterectomy Endocrine Surgical History: Reports: Thyroid Biopsy Neurological Surgical History: Reports: None Musculoskeletal Surgical History: Reports: Knee Replacement Other Musculoskeletal Surgeries/Procedures:: Spinal stenosis Social & Family History - Caffeine Use Caffeine Use: Reports: Coffee - Living Situation & Occupation Living situation: Reports: ED ROS GENERAL - Review of Systems Review Of Systems: Comprehensive ROS is negative, except as noted in HPI. ED EXAM, RENAL/ - Physical Exam Exam: See Below Exam Limited By: No Limitations General Appearance: Alert, WD/WN, No Apparent Distress, Mild Distress Ears: Normal External Exam Nose: Normal Inspection Throat/Mouth: Normal Inspection Head: Atraumatic Neck: Normal Inspection Respiratory/Chest: No Respiratory Distress, Lungs Clear Cardiovascular: Normal Peripheral Pulses, Regular Rate, Rhythm GI/Abdominal: Normal Bowel Sounds, Soft, Tender (suprapubic without gurading or rebound. the rest of the abd is soft and none tender. ) Course - Vital Signs Last Recorded V/S: Last Vital Signs Temp 97.7 F 05/08/20 18:25 Pulse 64 05/08/20 18:25 Resp 16 05/08/20 18:25 BP 202/92 H 05/08/20 18:25 Pulse Ox 95 05/08/20 18:25 - Orders/Labs/Meds Labs: Laboratory Tests 05/08/20 05/08/20 05/08/20 Range/Units 18:27 18:34 18:34 WBC 5.8 (4.0-10.0) x10^3/uL RBC 3.97 L (4.00-5.50) x10^6/uL Hgb 12.4 (12.0-16.0) g/dL Hct 37.7 (33.0-47.0) % MCV 95.0 H D (78.0-93.0) fL MCH 31.2 (26.0-32.0) pg MCHC 32.9 (32.0-36.0) g/dL RDW Coeff of Justine 12.3 (10.0-15.0) % Plt Count 216 (130-400) x10^3/uL Neut % (Auto) 49.4 L (50.0-80.0) % Lymph % (Auto) 37.0 (25.0-50.0) % [place] % (Auto) 10.4 (2.0-11.0) % Eos % (Auto) 3.0 (0.0-4.0) % Baso % (Auto) 0.2 (0.2-1.2) % Sodium 138 (136-145) mmol/L Potassium 4.1 (3.5-5.1) mmol/L Chloride 101 (98-107) mmol/L Carbon Dioxide 33 H (21-32) mmol/L Anion Gap 8.1 L (10-20) mmol/L BUN 19 H (7-18) mg/dL Creatinine 1.1 H (0.55-1.02) mg/dL Est Cr Clr Drug Dosing 33.86 mL/min Estimated GFR (MDRD) 49 Glucose 126 H (74-106) mg/dL Calcium 8.8 (8.5-10.1) mg/dL Urine Color Light yellow (YELLOW) Urine Appearance Slightly cloudy H (CLEAR) Urine pH 6.0 (5.0-8.0) Ur Specific [place] 1.010 Urine Protein Negative (NEGATIVE) mg/dL Urine Glucose (UA) Negative (NEGATIVE) mg/dL Urine Ketones Negative (NEGATIVE) mg/dL Urine Occult Blood Moderate H (NEGATIVE) Urine Nitrite Negative (NEGATIVE) Urine Bilirubin Negative (NEGATIVE) Urine Urobilinogen 0.2 (0.2) EU/dL Ur Leukocyte Esterase Negative (NEGATIVE) Urine RBC 10-20 H (NOT SEEN) /HPF Urine WBC 0-5 (NOT SEEN) /HPF Ur Squamous Epith Cells Few H (NEGATIVE) /HPF Urine Bacteria Rare (NEGATIVE) /HPF Urine Mucus Rare H (NEGATIVE) /LPF - Radiology Interpretation Free Text/Narrative:: CT abdomen pelvis without contrast per radiology shows expected post urological intervention changes. No acute process. - Re-Assessments/Exams Free Text/Narrative Re-Assessment/Exam: 05/08/20 18:37 Bladder scan completed with aprox 150mls. 05/08/20 20:21 Urine with blood only no signs of infection. Creat at baseline when compared to [facility] yesterday. CT unremarkable really with post stent placement changes. NO acute process. I am unsure what is causing her symptoms at this time. Could be the irritation from the blood in the urine its self which isn't surprising to be there from the recent procedure. We will try some pyridium for a short course and see if this helps with the symptoms and have her increase her fluid intake as well. Also contact her surgeon as well as this was just done 24 hours ago. She was comfortable with this plan and her questions answered. Departure - Departure Time of Disposition: 20:26 Disposition: Home, Self-Care 01 Clinical Impression: Dysuria - Discharge Information Instructions: Dysuria Referrals: Brianna Briceño, [Primary Care Provider] - Additional Instructions: Tylenol as needed for pain. Really focus on increasing your fluids over the next few days. We will try Pyridium 1 tablet three times a day as needed for the bladder pain and dysuria. First dose given in the ED and RX sent to [facility]. Return to the ED if new or worsening symptoms. Follow up with your surgeon tomorrow by phone and update them. Sepsis Event Note (ED) - Focused Exam Vital Signs: Vital Signs Temp Pulse Resp BP Pulse Ox 05/08/20 18:25 97.7 F 64 16 202/92 H 95 - Assessment/Plan Assessment:: Dysuria, post right ureteral stent. most likely from the blood in the urine. No signs of infection or stent malfunction. SP right ureteral stent placement 05/07/20 Plan: Tylenol as needed for pain. Really focus on increasing your fluids over the next few days. We will try Pyridium 1 tablet three times a day as needed for the bladder pain and dysuria. First dose given in the ED and RX sent to [facility]. Return to the ED if new or worsening symptoms. Follow up with your surgeon tomorrow by phone and update them.
[2020-05-08 18:45] VITALS: PULSE 64
[2020-05-08 18:51] LABS: ANION GAP 8.1 mmol/L (10-20)
--- NOTE | 2020-05-08 19:58 | CT ---
[id number] CT/CT Abdomen Pelvis WO IV Exam: CT Abdomen Pelvis WO IV Clinical Data: FLANK PAIN RECENT STENT PLACEMENT COMPARISON: CORRELATION IS MADE WITH AUGUST 04, 2017 FINDINGS: The traffic recorder film demonstrates a right ureteral stent in good position There is moderate right-sided hydronephrosis. There is no fluid collection around the right kidney. IV contrast was not used The left kidney is unremarkable There are stable appearing right-sided hepatic cysts The gallbladder has been removed. There are diffuse atheromatous calcification is There are surgical changes of the stomach. There is no free fluid or free air There is no bowel distention The pelvis shows no mass or adenopathy The aorta, adrenals, liver, left kidney, and spleen otherwise are unremarkable. There is soft tissue density in the left anterior abdominal wall that may represent an injection site however this was present previously and remains unchanged This may represent scar IMPRESSION: EXPECTED POST UROLOGY INTERVENTION CHANGES NO ACUTE PROCESS Vito Guo MD 05/08/201956 Thank you for allowing us to participate in the care of your patient.
[2020-05-08] MEDS ORDERED: Phenazopyridine 95 MG Tab PO STA (20:23)
[2020-05-08 20:35] VITALS: BP 121/62
== END 2020-05-08 20:34 | disposition home or self-care (01) ==
LOC: VM.ED 18:19
DX: R30.0 Dysuria (principal); I10 Essential (primary) hypertension; E11.9 Type 2 diabetes mellitus without complications; E66.9 Obesity, unspecified; G43.909 Migraine, unspecified, not intractable, without status migrainosus; Z79.4 Long term (current) use of insulin; Z90.710 Acquired absence of both cervix and uterus; Z98.890 Other specified postprocedural states; Z88.6 Allergy status to analgesic agent; Z88.8 Allergy status to other drugs, medicaments and biological substances; Z88.1 Allergy status to other antibiotic agents; Z79.899 Other long term (current) drug therapy
CPT/HCPCS: 36415; 51798; 74176; 80048; 81001; 85025; 99284-25; 99284-GF; A9270-GY

== ENCOUNTER 2020-05-29 20:22 | Inpatient (IN) | payer MEDICARE, OTHER ==
[2020-05-29] MEDS ORDERED: Acetaminophen 500 MG Tab PO ONE (20:27)
[2020-05-29] MEDS ORDERED: Lactated Ringers 1,000 ML IV ONE (20:29)
[2020-05-29] MEDS ORDERED: cefTRIAXone 2 GM Vial IVPUSH ONE (20:40)
[2020-05-29] MEDS ORDERED: Ciprofloxacin in D5W 400 MG in Premix Bag 1 BAG IV ONE ×2 (20:48)
[2020-05-29] MEDS ORDERED: Ondansetron 4 MG/2 ML SDV IV ONE (20:55)
--- NOTE | 2020-05-29 20:56 | EDM.PDOC ---
ED HPI GENERAL MEDICAL PROBLEM - General Stated Complaint: FEVER Time Seen by Provider: 05/29/20 20:25 Source of Information: Reports: Patient History Limitations: Reports: No Limitations - History of Present Illness INITIAL COMMENTS - FREE TEXT/NARRATIVE: Patient comes emergency department today with complaints of a fever generalized malaise and fatigue. This patient just had a ureteral stent removed on the right side by the urologist in [place] on Tuesday. She was sent home on Keflex 10 tablets. For the past 2 days she is just not felt well kind of body aches chills malaise and fatigue. Today she had a very high fever at home. She has had nausea without vomiting. No cough or congestion. No shortness of breath. No pain in her chest. No cold exposure no COVID concerns. No diarrhea. No l oss of taste or smell. No abdominal pain no flank pain. She does complain of dysuria and urinary frequency without any hematuria. She has no rash sores or lesions. She has not taken anything for her fever at home. She states her fever at home was 104. On tuesday the patient had a right ureteral stent removed at [facility] in [place] and was sent home on Cephalexin for prophylaxis. - Related Data Allergies Allergy/AdvReac Type Severity Reaction Status Date / Time aspirin Allergy Cannot Verified 05/08/20 18:38 Remember NSAIDS (Non-Steroidal Allergy Other Verified 05/08/20 18:38 Anti-Inflamma Zcdrqci-Bdu-Tcs Reductase Allergy Cannot Verified 05/08/20 18:38 Inhibitor Remember atorvastatin [From Lipitor] AdvReac Muscle Verified 05/08/20 18:38 Aches glipizide AdvReac Chest Pain Verified 05/08/20 18:38 hydroxyzine [From Atarax] AdvReac Anxiety Verified 05/08/20 18:38 levofloxacin [From Levaquin] AdvReac Leg Cramps Verified 05/08/20 18:38 lisinopril [From Zestoretic] AdvReac Cough Verified 05/08/20 18:38 Home Meds: Home Meds Calcium Citrate/Vitamin D3 [Calcium Citrate - Vit D Tablet] 1 tab PO BID 04/01/17 [History] Magnesium Oxide 500 mg PO DAILY 04/01/17 [History] Metoprolol Tartrate 50 mg PO BID 04/01/17 [History] Multivitamin/Iron/Folic Acid [Multi-Day Plus Iron Tablet] 2 tab PO DAILY 04/01/17 [History] Omeprazole 20 mg PO DAILY 04/01/17 [History] Polyvinyl Alcohol/Povidone [Artificial Tears Drops] 1 drop EYERT Q4H PRN 04/01/17 [History] hydroCHLOROthiazide [Hydrochlorothiazide] 12.5 mg PO DAILY 04/01/17 [History] Cetirizine [ZyrTEC] 10 mg PO DAILY 10/23/18 [History] Insulin Glargine,Hum.Rec.Anlog [Basaglar Kwikpen U-100] 16 unit SQ BEDTIME 10/23/18 [History] Acetaminophen/oxyCODONE [Percocet 325-5 MG] 1 tab PO Q6H PRN tablet 02/20/20 [Rx] Docusate Sodium/Sennosides [Senna Plus] 2 tab PO BID tablet 02/20/20 [Rx] Gabapentin [Neurontin] 100 mg PO BEDTIME cap 02/20/20 [Rx] Hydrocodone/Acetaminophen [Hydrocodone-Acetamin 7.5-325] 1 each PO QID PRN #0 02/20/20 [Rx] Insulin Lispro [HumaLOG] 2 unit SUBCUT DAILY@1200 vial 02/20/20 [Rx] Insulin Lispro [HumaLOG] 3 unit SUBCUT DAILY@1700 vial 02/20/20 [Rx] Lidocaine 4% [Aspercreme 4%] 1 each TOP DAILY patch 02/20/20 [Rx] Sulfamethoxazole/Trimethoprim [Septra DS] 1 tab PO BID #3 tablet 02/20/20 [Rx] polyethylene glycoL 3350 [MiraLAX] 17 gm PO DAILY PRN packet 02/20/20 [Rx] Phenazopyridine [Pyridium] 100 mg PO TID PRN #6 tab 05/08/20 [Rx] Past Medical History HEENT History: Reports: Other (See Below) Other HEENT History: Central retinal vein occlusion Cardiovascular History: Reports: High Cholesterol, Hypertension Other Cardiovascular History: Carotid artery stenosis. varicose veins Respiratory History: Reports: Pneumonia, Recurrent, Sleep Apnea Other Respiratory History: uses CPAP Gastrointestinal History: Reports: Other (See Below) Other Gastrointestinal History: Anastomotic ulcer S/P gastric bypass. Chronic constipation due to opioid use 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 History: Reports: Other (See Below) Other 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 History: dilated renal pelvis. UPJ obstruction CADMIUM BURNER History: Reports: Other CADMIUM BURNER History: fibrocystic breast Musculoskeletal History: Reports: Back Pain, Chronic Other Musculoskeletal History: knee MCL sprain. spinal stenosis. closed compression Fx of L3. greater trochanteris bursitis of left hip Neurological History: Reports: Migraines Psychiatric History: Reports: Other (See Below) Other Psychiatric History: Chronic continuous use of opioids. pain management agreement Endocrine/Metabolic History: Reports: Diabetes, Type II, Obesity/BMI 30+, Other (See Below) Other Endocrine/Metabolic History: Nontoxic uninodular goiter Hematologic History: Reports: Anemia, Iron Deficiency Oncologic (Cancer) History: Reports: Other (See Below) Other Oncologic History: endometrial cancer - Past Surgical History Head Surgeries/Procedures: Reports: None HEENT Surgical History: Reports: Other (See Below) Other HEENT Surgeries/Procedures: eye shots every 5/6 wks Cardiovascular Surgical History: Reports: None GI Surgical History: Reports: Bariatric Procedure Female Surgical History: Reports: Hysterectomy Endocrine Surgical History: Reports: Thyroid Biopsy Neurological Surgical History: Reports: None Musculoskeletal Surgical History: Reports: Knee Replacement Other Musculoskeletal Surgeries/Procedures:: Spinal stenosis Social & Family History - Caffeine Use Caffeine Use: Reports: Coffee - Living Situation & Occupation Living situation: Reports: ED ROS GENERAL - Review of Systems Review Of Systems: Comprehensive ROS is negative, except as noted in HPI. ED EXAM, SEPSIS - Physical Exam Exam: See Below Text/Narrative:: The patient appears mildly ill. She is just laying there moaning and generalized pain she reports. She is alert and appropriate. Exam Limited By: No Limitations General Appearance: Alert, WD/WN, Moderate Distress Eye Exam: Bilateral Eye: EOMI Ears: Normal External Exam Nose: Normal Inspection Throat/Mouth: Normal Inspection, Normal Lips, Normal Teeth, Normal Gums, Normal Oropharynx, Normal Voice, No Airway Compromise Head: Atraumatic, Normocephalic Neck: Normal Inspection, Supple, Non-Tender. No: Lymphadenopathy (L), Lym phadenopathy (R) Respiratory/Chest: No Respiratory Distress, Lungs Clear, Normal Breath Sounds, No Accessory Muscle Use, Chest Non-Tender Cardiovascular: Normal Peripheral Pulses, Regular Rate, Rhythm, Tachycardia Peripheral Pulses: 2+: Radial (L), Radial (R), Posterior Tibial (L), Posterior Tibial (R), Dorsalis Pedis (L), Dorsalis Pedis (R) GI/Abdominal Exam: Normal Bowel Sounds, Soft, Tender (Mild tenderness in the suprapubic region. The rest of the abdomen is soft nontender nondistended with out guarding or rebound.). No: Guarding, Rigid, Rebound (Female) Exam: Deferred Rectal (Female) Exam: Deferred Back: Normal Inspection, Full Range of Motion, CVA Tenderness (R). No: CVA Tenderness (L) Extremities: Normal Inspection, Normal Range of Motion, Normal Capillary Refill Neurological: Alert, Oriented, Normal Cognition, Normal Gait, No Motor/Sensory Deficits Skin: No Rash, Diaphoretic, Increased Warmth, Pallor Course - Vital Signs Last Recorded V/S: Last Vital Signs Temp 98.8 F 05/29/20 23:17 Pulse 56 L 05/29/20 23:17 Resp 18 05/29/20 23:17 BP 106/46 L 05/29/20 23:17 Pulse Ox 94 L 05/29/20 23:17 - Orders/Labs/Meds Orders: Active Orders 24 hr Category Date Time Status Abdomen Pelvis w Cont [CT] Stat Exams 05/29/20 21:21 Taken CULTURE BLOOD [BC] Stat Lab 05/29/20 20:30 Received CULTURE BLOOD [BC] Stat Lab 05/29/20 21:18 Received CULTURE URINE [RM] Stat Lab 05/29/20 20:40 Received Lactated Ringers [Ringers, Lactated] 1,000 ml Med 05/29/20 21:45 Active IV ASDIRECTED Sodium Chloride 0.9% [Saline Flush] Med 05/29/20 20:27 Active 10 ml FLUSH ASDIRECTED PRN Blood Culture x2 Reflex Set [OM.PC] Stat Oth 05/29/20 20:27 Ordered Peripheral IV Insertion Adult [OM.PC] Stat Oth 05/29/20 20:27 Ordered Medication Orders Acetaminophen (Tylenol) 650 mg PO Q6H PRN PRN Reason: Fever Enoxaparin Sodium (Lovenox) 40 mg SUBCUT DAILY PAULETTE Gabapentin (Neurontin) 100 mg PO BEDTIME PAULETTE Lactated Ringer's (Ringers, Lactated) 1,000 mls @ 100 mls/hr IV ASDIRECTED PAULETTE Last Admin: 05/29/20 22:25 Dose: 100 mls/hr Documented by: BHASKAR Insulin Human Lispro (Humalog) 10 unit SUBCUT DAILY@1200 [facility] Insulin Human Lispro (Humalog) 10 unit SUBCUT DAILY@1700 [facility] Insulin Human Lispro (Humalog) 5 unit SUBCUT DAILY ONE Stop: 05/30/20 07:01 Metoprolol Tartrate (Lopressor) 50 mg PO BID [facility] Morphine Sulfate (Morphine) 4 mg IVPUSH Q4H PRN PRN Reason: Pain Non-Formulary Medication (Magnesium Oxide [Magnesium Oxide]) 500 mg PO DAILY PAU[facility]TTE Non-Formulary Medication (Hydrocodone/Acetaminophen [Hydrocodone-Acetamin 7.5- 325]) 1 each PO QID PRN PRN Reason: Pain Non-Formulary Medication (Hydrochlorothiazide [Hydrochlorothiazide]) 12.5 mg PO DAILY PAU[facility] Non-Formulary Medication (Calcium Citrate/Vitamin D3 [Calcium Citrate - Vit D Tablet]) 1 tab PO BID [facility] Non-Formulary Medication (Insulin Glargine,Hum.Rec.Anlog [Zach Dias U- 100]) 24 unit SQ BEDTIME [facility] Omeprazole (Omeprazole) 20 mg PO DAILY [facility] Ondansetron HCl (Zofran Odt) 4 mg PO Q6H PRN PRN Reason: nausea, able to take PO Senna/Docusate Sodium (Senna Plus) 2 tab PO BEDTIME PAULETTE Sodium Chloride (Saline Flush) 10 ml FLUSH ASDIRECTED PRN PRN Reason: Keep Vein Open Labs: Laboratory Tests 05/29/20 05/29/20 05/29/20 Range/Units 20:30 20:30 20:30 WBC 9.9 (4.0-10.0) x10^3/uL RBC 4.21 (4.00-5.50) x10^6/uL Hgb 13.1 (12.0-16.0) g/dL Hct 38.2 (33.0-47.0) % MCV 90.7 D (78.0-93.0) fL MCH 31.1 (26.0-32.0) pg MCHC 34.3 (32.0-36.0) g/dL RDW Coeff of Justine 12.0 (10.0-15.0) % Plt Count 152 (130-400) x10^3/uL Neut % (Auto) 86.5 H (50.0-80.0) % Lymph % (Auto) 6.6 L (25.0-50.0) % Terry % (Auto) 6.7 (2.0-11.0) % Eos % (Auto) 0.0 (0.0-4.0) % Baso % (Auto) 0.2 (0.2-1.2) % Sodium 132 L (136-145) mmol/L Potassium 3.9 (3.5-5.1) mmol/L Chloride 93 L (98-107) mmol/L Carbon Dioxide 26 (21-32) mmol/L Anion Gap 16.9 (10-20) mmol/L BUN 25 H (7-18) mg/dL Creatinine 1.3 H (0.55-1.02) mg/dL Est Cr Clr Drug Dosing TNP Estimated GFR (MDRD) 40 Glucose 332 H (74-106) mg/dL Lactic Acid 2.2 H* (0.4-2.0) mmol/L Calcium 9.0 (8.5-10.1) mg/dL Corrected Calcium 9.40 (8.5-10.1) mg/dL Total Bilirubin 1.0 (0.2-1.0) mg/dL AST 17 (15-37) U/L ALT 20 (14-59) U/L Alkaline Phosphatase 137 H (46-116) U/L C-Reactive Protein 17.2 H (<=0.9) mg/dL Total Protein 7.1 (6.4-8.2) g/dL Albumin 3.5 (3.4-5.0) g/dL Globulin 3.6 Albumin/Globulin Ratio 0.97 Urine Color (YELLOW) Urine Appearance (CLEAR) Urine pH (5.0-8.0) Ur Specific [place] Urine Protein (NEGATIVE) mg/dL Urine Glucose (UA) (NEGATIVE) mg/dL Urine Ketones (NEGATIVE) mg/dL Urine Occult Blood (NEGATIVE) Urine Nitrite (NEGATIVE) Urine Bilirubin (NEGATIVE) Urine Urobilinogen (0.2) EU/dL Ur Leukocyte Esterase (NEGATIVE) U Hyaline Cast (Auto) Urine RBC (NOT SEEN) /HPF Urine WBC (NOT SEEN) /HPF Ur Squamous Epith Cells (NEGATIVE) /HPF Urine Bacteria (NEGATIVE) /HPF Urine Mucus (NEGATIVE) /LPF COVID-19 (KACY) (NEGATIVE) 05/29/20 05/29/20 Range/Units 20:30 20:40 WBC (4.0-10.0) x10^3/uL RBC (4.00-5.50) x10^6/uL Hgb (12.0-16.0) g/dL Hct (33.0-47.0) % MCV (78.0-93.0) fL MCH (26.0-32.0) pg MCHC (32.0-36.0) g/dL RDW Coeff of Justine (10.0-15.0) % Plt Count (130-400) x10^3/uL Neut % (Auto) (50.0-80.0) % Lymph % (Auto) (25.0-50.0) % Terry % (Auto) (2.0-11.0) % Eos % (Auto) (0.0-4.0) % Baso % (Auto) (0.2-1.2) % Sodium (136-145) mmol/L Potassium (3.5-5.1) mmol/L Chloride (98-107) mmol/L Carbon Dioxide (21-32) mmol/L Anion Gap (10-20) mmol/L BUN (7-18) mg/dL Creatinine (0.55-1.02) mg/dL Est Cr Clr Drug Dosing Estimated GFR (MDRD) Glucose (74-106) mg/dL Lactic Acid (0.4-2.0) mmol/L Calcium (8.5-10.1) mg/dL Corrected Calcium (8.5-10.1) mg/dL Total Bilirubin (0.2-1.0) mg/dL AST (15-37) U/L ALT (14-59) U/L Alkaline Phosphatase (46-116) U/L C-Reactive Protein (<=0.9) mg/dL Total Protein (6.4-8.2) g/dL Albumin (3.4-5.0) g/dL Globulin Albumin/Globulin Ratio Urine Color Yellow (YELLOW) Urine Appearance Cloudy H (CLEAR) Urine pH 6.0 (5.0-8.0) Ur Specific [place] 1.020 Urine Protein 100 H (NEGATIVE) mg/dL Urine Glucose (UA) 500 H (NEGATIVE) mg/dL Urine Ketones 40 H (NEGATIVE) mg/dL Urine Occult Blood Moderate H (NEGATIVE) Urine Nitrite Negative (NEGATIVE) Urine Bilirubin Negative (NEGATIVE) Urine Urobilinogen 0.2 (0.2) EU/dL Ur Leukocyte Esterase Moderate H (NEGATIVE) U Hyaline Cast (Auto) Rare Urine RBC 0-5 (NOT SEEN) /HPF Urine WBC >100 H (NOT SEEN) /HPF Ur Squamous Epith Cells Few H (NEGATIVE) /HPF Urine Bacteria Moderate H (NEGATIVE) /HPF Urine Mucus Rare H (NEGATIVE) /LPF COVID-19 (KACY) Negative (NEGATIVE) Meds: Medications Generic Name Dose Route Start Last Admin Trade Name Freq PRN Reason Stop Dose Admin Acetaminophen 650 mg 05/30/20 00:26 Tylenol PO Q6H PRN Fever Enoxaparin Sodium 40 mg 05/30/20 08:00 Lovenox SUBCUT DAILY [facility] Gabapentin 100 mg 05/30/20 20:00 Neurontin PO BEDTIME [facility] Lactated Ringer's 1,000 mls @ 100 mls/hr 05/29/20 21:45 05/29/20 22:25 Ringers, Lactated IV 100 mls/hr ASDIRECTED [facility] Administration Insulin Human Lispro 10 unit 05/30/20 12:00 Humalog SUBCUT DAILY@1200 [facility] Insulin Human Lispro 10 unit 05/30/20 17:00 Humalog SUBCUT DAILY@1700 [facility] Insulin Human Lispro 5 unit 05/30/20 07:00 Humalog SUBCUT 05/30/20 07:01 DAILY ONE Metoprolol Tartrate 50 mg 05/30/20 08:00 Lopressor PO BID [facility] Morphine Sulfate 4 mg 05/30/20 00:26 Morphine IVPUSH Q4H PRN Pain Non-Formulary Medication 500 mg 05/30/20 08:00 Magnesium Oxide [Magnesium Oxide] PO DAILY [facility] Non-Formulary Medication 1 each 05/29/20 23:27 Hydrocodone/Acetaminophen [Hydrocodone-Acetamin 7.5-325] PO QID PRN Pain Non-Formulary Medication 12.5 mg 05/30/20 08:00 Hydrochlorothiazide [Hydrochlorothiazide] PO DAILY [facility] Non-Formulary Medication 1 tab 05/30/20 08:00 Calcium Citrate/Vitamin D3 [Calcium Citrate - Vit D Tablet] PO BID [facility] Non-Formulary Medication 24 unit 05/30/20 20:00 Insulin Glargine,Hum.Rec.Anlog [Zach Dias U-100] SQ BEDTIME [facility]TTE Omeprazole 20 mg 05/30/20 08:00 Omeprazole PO DAILY [facility] Ondansetron HCl 4 mg 05/30/20 00:34 Zofran Odt PO Q6H PRN nausea, able to take PO Senna/Docusate Sodium 2 tab 05/30/20 20:00 Senna Plus PO BEDTIME [facility]E Sodium Chloride 10 ml 05/29/20 20:27 Saline Flush FLUSH ASDIRECTED PRN Keep Vein Open Discontinued Medications Generic Name Dose Route Start Last Admin Trade Name Freq PRN Reason Stop Dose Admin Acetaminophen 1,000 mg 05/29/20 20:27 05/29/20 20:35 Tylenol Extra Strength PO 05/29/20 20:28 1,000 mg ONETIME ONE Administration Ceftriaxone Sodium 2 gm 05/29/20 20:40 05/29/20 20:47 Rocephin IVPUSH 05/29/20 20:41 2 gm STAT ONE Administration Lactated Ringer's 1,000 mls @ 999 mls/hr 05/29/20 20:29 05/29/20 20:50 Ringers, Lactated IV 05/29/20 21:29 999 mls/hr ONETIME ONE Administration Ciprofloxacin/Dextrose 400 mg/ 200 mls @ 200 mls/hr 05/29/20 20:48 05/29/20 20:55 Premix IV 05/29/20 21:47 200 mls/hr STAT ONE Administration Iopamidol 100 ml 05/29/20 22:15 05/29/20 22:16 Isovue-300 (61%) IVPUSH 05/29/20 22:16 100 ml ONETIME ONE Administration Morphine Sulfate 4 mg 05/29/20 22:24 05/29/20 22:50 Morphine IVPUSH 05/29/20 22:25 4 mg ONETIME ONE Administration Ondansetron HCl 4 mg 05/29/20 20:55 05/29/20 21:00 Zofran IV 05/29/20 20:56 4 mg ONETIME ONE Administration - Radiology Interpretation Free Text/Narrative:: The abdomen pelvis with contrast per radiology shows very mild right hydronephrosis no change. Mild abnormal enhancement of the wall of the right renal pelvis. Moderate right perinephric stranding new. Consideration would include very mild right pyelonephritis. Other considerations include sequelae of recent infection instrumentation or obstruction. This is probably multifactorial in the nature of pyelonephritis as well as recent instrumentation. CXR per radiology no focal pneumonia. - Re-Assessments/Exams Free Text/Narrative Re-Assessment/Exam: 05/30/20 00:11 The patient clearly has some type of infectious process going on. Initially blood cultures were drawn and they are pending. COVID test was negative. Labs are drawn. IV LR 1 L wide open. Acetaminophen 1 g p.o. Ceftriaxone 2 g IV push Chest x-ray negative. When the patient voided it was clear that this is a very foul smelling cloudy urine. As the patient was sent home on cephalexin which I would typically use for urinary tract infection I will start her on Cipro at this time. Hesitantly the patient does not have much of a elevated white blood cell count. She does have minimally elevated lactic acid and a quite elevated CRP with a clear urinary tract infection in place. To the recent instrumentation and the rather high fever I conducted a CT abdomen pelvis with contrast to ensure that there was no emphysematous pyelonephritis abscess or any other concerns. CT scan shows perinephric stranding on the right side most likely consistent with an acute pyelonephritis abscess or any other findings. Hydronephrosis is rather unchanged. His fever did improve after the Tylenol. But she was still quite uncomfortable. She was still moaning in pain. She was still nauseous in the emergency department. She feels absolutely miserable. I have a high suspicion for failure of outpatient treatment for this patient that presented with a very high fever that is clearly from her pyelonephritis. Due to this concern and my high risk of outpatient failure and the elevated lactic we will admit her under inpatient services here in the hospital. The patient's primary care provider is Dr. Brianna Briceño I will talk with her in the morning about assuming care of the patient. The patient is comfortable with this plan and her questions were answered. Departure - Departure Time of Disposition: 23:00 Disposition: Admitted As Inpatient 66 Clinical Impression: Pyelonephritis of right kidney, Sepsis, ESTRELLA (acute kidney injury) - Discharge Information Sepsis Event Note (ED) - Focused Exam Vital Signs: Vital Signs Temp 05/29/20 20:35 104.2 F H - Problem List & Annotations (1) ESTRELLA (acute kidney injury) SNOMED Code(s): 58004443, 18745413 Code(s): N17.9 - ACUTE KIDNEY FAILURE, UNSPECIFIED Status: Acute Current Visit: Yes (2) Pyelonephritis of right kidney SNOMED Code(s): 13820424 Code(s): N12 - TUBULO-INTERSTITIAL NEPHRITIS, NOT SPCF ACUTE OR CHRONIC Status: Acute Current Visit: Yes (3) Sepsis SNOMED Code(s): 03070431 Code(s): A41.9 - SEPSIS, UNSPECIFIED ORGANISM Status: Acute Current Visit: Yes Qualifiers: Sepsis type: sepsis due to unspecified organism Sepsis acute organ dysfunction status: with acute organ dysfunction Severe sepsis acute organ dysfunction type: acute renal failure Acute renal failure type: unspecified Severe sepsis shock status: without septic shock Qualified Code(s): A41.9 - Sepsis, unspecified organism; R65.20 - Severe sepsis without septic shock; N17.9 - Acute kidney failure, unspecified - My Orders Last 24 Hours: My Active Orders 05/29/20 20:27 Sodium Chloride 0.9% [Saline Flush] 10 ml FLUSH ASDIRECTED PRN Blood Culture x2 Reflex Set [OM.PC] Stat Peripheral IV Insertion Adult [OM.PC] Stat 05/29/20 20:30 CULTURE BLOOD [BC] Stat 05/29/20 20:40 CULTURE URINE [RM] Stat 05/29/20 21:18 CULTURE BLOOD [BC] Stat 05/29/20 21:21 Abdomen Pelvis w Cont [CT] Stat 05/29/20 21:45 Lactated Ringers [Ringers, Lactated] 1,000 ml IV ASDIRECTED - Assessment/Plan Admission H&P: Please use this note as an admission H&P Last 24 Hours: My Active Orders 05/29/20 20:27 Sodium Chloride 0.9% [Saline Flush] 10 ml FLUSH ASDIRECTED PRN Blood Culture x2 Reflex Set [OM.PC] Stat Peripheral IV Insertion Adult [OM.PC] Stat 05/29/20 20:30 CULTURE BLOOD [BC] Stat 05/29/20 20:40 CULTURE URINE [RM] Stat 05/29/20 21:18 CULTURE BLOOD [BC] Stat 05/29/20 21:21 Abdomen Pelvis w Cont [CT] Stat 05/29/20 21:45 Lactated Ringers [Ringers, Lactated] 1,000 ml IV ASDIRECTED Assessment:: A/P Acute pyelonephritis: Post operatively from stent removal this week. Cipro 400mg IVPB bid. Blood and urine cultures pending. Typically I would use Rocephin for this although she reported she was sent home on Cephalexin post operatively. Sepsis: From #1. Repeat lactic. LR at 100mls/hr over the night. Daily labs CRP lactic CBC. ESTRELLA: From #2. Hydrate over night with LR 100mls/hr. Daily labs. HX of DM: Home Lispro 5units break, 10units lunch and supper. Basaglar 24units HS. QID BS. VTE: GENEVA score high. TEDs lovenox. Sepsis, active infection. trending lactic, daily labs. Admit inpatient under my services for the night will speak with the patients PCP DR. Smith Briceño in the morning for transfer of care.
--- NOTE | 2020-05-29 21:06 | CR ---
[id number] RAD/RAD Chest Portable EXAM: PORTABLE CHEST INDICATION: FEVER UNKNOWN ORIGIN COMPARISON: February 19, 2020. DISCUSSION: Mild linear scarring or atelectasis in the lung bases with no definite infiltrates. Normal heart size. Mild rightward shift of the trachea is stable and could relate to an enlarged thyroid, but is nonspecific. IMPRESSION: 1. No acute findings. Jono Torres MD 05/29/20 [id number] Thank you for allowing us to participate in the care of your patient.
[2020-05-29 21:16] LABS: CHLORIDE,CL 93 mmol/L (98-107); SODIUM,NA 132 mmol/L (136-145)
[2020-05-29 21:27] LABS: ANION GAP 16.9 mmol/L (10-20)
[2020-05-29] MEDS ORDERED: Iopamidol 612 MG/ML 100 ML Bottle IVPUSH ONE (22:15)
[2020-05-29] MEDS ORDERED: Morphine 4 MG/ML Syringe IVPUSH ONE (22:24)
[2020-05-29] MEDS: Lactated Ringers 1,000 ML IV SCH (22:25)
[2020-05-30] MEDS ORDERED: Ondansetron 4 MG Tab.DIS PO PRN (00:34)
[2020-05-30] MEDS: Acetaminophen 325 MG Tab PO PRN ×2 (02:28→08:08)
[2020-05-30] MEDS: Morphine 4 MG/ML Syringe IVPUSH PRN ×3 (02:29→20:31)
[2020-05-30] MEDS ORDERED: Insulin Lispro 100 Units/ML 3 ML Vial SUBCUT ONE (07:00)
[2020-05-30 07:07] LABS: ANION GAP 10.6 mmol/L (10-20)
[2020-05-30] MEDS ORDERED: Calcium Citrate/Vitamin D3 315 MG-250 Unit Tab PO SCH (08:00)
[2020-05-30] MEDS ORDERED: Hydrochlorothiazide 12.5 MG Cap PO SCH (08:00)
[2020-05-30] MEDS ORDERED: Metoprolol Tartrate 50 MG Tab PO SCH (08:00)
[2020-05-30] MEDS: Enoxaparin 40 MG/0.4 ML Syringe SUBCUT SCH (08:08)
[2020-05-30] MEDS: Omeprazole 20 MG Cap.CR PO SCH (08:08)
[2020-05-30] MEDS: Magnesium Oxide 400 MG Tab PO SCH (08:09)
[2020-05-30] MEDS: Lactated Ringers 1,000 ML IV SCH (08:10)
--- NOTE | 2020-05-30 08:34 | CT ---
[id number] CT/CT Abdomen Pelvis W IV EXAM: ABDOMEN AND PELVIS CT WITH CONTRAST INDICATION: RECENT STENT REMOVAL RIGHT KIDNEY SEPSIS COMPARISON: May 08, 2020. DISCUSSION: Interval stent removal. Development of mild hydronephrosis which with the renal pelvis now 28 mm relative to the previous of 24 mm with transition point at the ureteropelvic junction. There is perinephric stranding which could be from obstruction or infection, correlate with urinalysis. No obstructing calculus. No left-sided collecting system dilation. Tiny nonobstructing left renal calculus. Gastric bypass and cholecystectomy. Scattered hepatic cysts the largest measuring 32 mm in diameter. 25 mm right and subcentimeter left renal cysts. Stable minor nonspecific nodularity of the adrenal glands. A 10 x 6 mm cystic focus in the tail the pancreas is nonspecific, but of doubtful clinical significance. Atherosclerotic plaque scattered throughout the aorta and its major branches. Hysterectomy. Scattered diverticula without evidence of diverticulitis. Chronic infiltration of the left lower quadrant subcutaneous fat. Retrolisthesis L1-L2, L2-L3 and L3-L4. Multilevel degenerative changes. The spleen is normal in appearance. IMPRESSION: 1. Mild right hydronephrosis. Urothelial enhancement and thickening could be from obstruction or pyelonephritis. Jono Torres MD 05/30/20 0832 Thank you for allowing us to participate in the care of your patient.
[2020-05-30] MEDS ORDERED: Acetaminophen/HYDROcodone 325-5 MG Tab PO PRN (08:39)
[2020-05-30] MEDS: Insulin Glarg,Human.Rec.Analog 100 Unit/ML SUBCUT SCH (08:55)
[2020-05-30] MEDS: Simethicone 80 MG Tab.Chew PO PRN (08:56)
[2020-05-30] MEDS ORDERED: Sodium Chloride 0.9% 500 ML IV SCH ×2 (10:00→12:00)
[2020-05-30] MEDS: Piperacillin/Tazobactam 3.375 GM in Sodium Chloride 0.9% 100 ML IV SCH ×2 (11:43→20:14)
[2020-05-30] MEDS: Acetaminophen/HYDROcodone 325-5 MG Tab PO SCH ×2 (11:48→20:26)
[2020-05-30] MEDS: Insulin Lispro 100 Units/ML 3 ML Vial SUBCUT SCH ×2 (11:48→17:50)
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
[2020-05-30] MEDS ORDERED: Insulin Glarg,Human.Rec.Analog 100 Unit/ML SUBCUT SCH (20:00)
[2020-05-30] MEDS ORDERED: Gabapentin 100 MG Cap PO SCH (20:00)
[2020-05-30] MEDS: Metoprolol Tartrate 25 MG Tab PO SCH (20:15)
[2020-05-30] MEDS: Calcium Citrate/Vitamin D3 315 MG-250 Unit Tab PO SCH (20:19)
[2020-05-30] MEDS: Sodium Chloride 0.9% 10 ML Syringe FLUSH PRN (20:21)
[2020-05-31] MEDS: Piperacillin/Tazobactam 3.375 GM in Sodium Chloride 0.9% 100 ML IV SCH ×3 (03:48→20:24)
[2020-05-31] MEDS: Morphine 4 MG/ML Syringe IVPUSH PRN (03:57)
[2020-05-31] MEDS: Enoxaparin 40 MG/0.4 ML Syringe SUBCUT SCH (07:44)
[2020-05-31] MEDS: Calcium Citrate/Vitamin D3 315 MG-250 Unit Tab PO SCH ×2 (07:44→20:31)
[2020-05-31] MEDS: Acetaminophen/HYDROcodone 325-5 MG Tab PO SCH ×3 (07:45→20:31)
[2020-05-31] MEDS: Omeprazole 20 MG Cap.CR PO SCH (07:46)
[2020-05-31] MEDS: Insulin Glarg,Human.Rec.Analog 100 Unit/ML SUBCUT SCH (07:47)
[2020-05-31] MEDS: Insulin Lispro 100 Units/ML 3 ML Vial SUBCUT SCH ×3 (07:48→17:35)
[2020-05-31] MEDS: Metoprolol Tartrate 25 MG Tab PO SCH ×2 (07:52→20:34)
[2020-05-31] MEDS: Magnesium Oxide 400 MG Tab PO SCH (07:54)
[2020-05-31 08:22] LABS: ANION GAP 14.4 mmol/L (10-20)
--- NOTE | 2020-05-31 09:11 | PCM.PN ---
- General Info Date of Service: 05/31/20 Subjective Update: 74 yo female hospital day #2 admitted with pyelonephritis following ureteral stent removal last week. Patient states she slept well. Was having more generalized pain this morning but that is improved after her hydrocodone. Still having dysuria and frequency, which she feels are about the same. No fever since admit. She denies any nausea or vomiting. Has had some bloating but last BM was 2 days ago and usual for her is daily. Bloating has responded well to simethicone. - Review of Systems General: Reports: No Symptoms HEENT: Reports: No Symptoms Pulmonary: Reports: No Symptoms Cardiovascular: Reports: No Symptoms Gastrointestinal: Reports: No Symptoms 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: Reports: Dysuria, Frequency Musculoskeletal: Reports: Other (diffuse joint pain) Skin: Reports: No Symptoms - Patient Data Vitals - Most Recent: Last Vital Signs Temp 36.7 C 05/31/20 06:00 Pulse 83 05/31/20 07:52 Resp 14 05/31/20 06:00 BP 136/73 05/31/20 07:52 Pulse Ox 91 L 05/31/20 06:00 Weight - Most Recent: 67.449 kg I&O - Last 24 Hours: Intake & Output 05/30/20 05/31/20 05/31/20 22:59 06:59 14:59 Intake Total 720 150 Output Total 100 400 Balance 620 -250 Lab Results Last 24 Hours: Laboratory Results - last 24 hr 05/30/20 05/30/20 05/30/20 Range/Units 11:40 17:47 20:10 WBC (4.0-10.0) x10^3/uL RBC (4.00-5.50) x10^6/uL Hgb (12.0-16.0) g/dL Hct (33.0-47.0) % MCV (78.0-93.0) fL MCH (26.0-32.0) pg MCHC (32.0-36.0) g/dL RDW Coeff of Justine (10.0-15.0) % Plt Count (130-400) x10^3/uL Neut % (Auto) (50.0-80.0) % Lymph % (Auto) (25.0-50.0) % [place] % (Auto) (2.0-11.0) % Eos % (Auto) (0.0-4.0) % Baso % (Auto) (0.2-1.2) % Sodium (136-145) mmol/L Potassium (3.5-5.1) mmol/L Chloride (98-107) mmol/L Carbon Dioxide (21-32) mmol/L Anion Gap (10-20) mmol/L BUN (7-18) mg/dL Creatinine (0.55-1.02) mg/dL Est Cr Clr Drug Dosing mL/min Estimated GFR (MDRD) Glucose (74-106) mg/dL POC Glucose 224 H 243 H 134 H (74-106) mg/dL Calcium (8.5-10.1) mg/dL 05/31/20 05/31/20 05/31/20 Range/Units 06:40 07:48 07:48 WBC 6.6 (4.0-10.0) x10^3/uL RBC 3.80 L (4.00-5.50) x10^6/uL Hgb 11.7 L (12.0-16.0) g/dL Hct 35.5 (33.0-47.0) % MCV 93.4 H (78.0-93.0) fL MCH 30.8 (26.0-32.0) pg MCHC 33.0 (32.0-36.0) g/dL RDW Coeff of Justine 12.1 (10.0-15.0) % Plt Count 172 (130-400) x10^3/uL Neut % (Auto) 65.0 (50.0-80.0) % Lymph % (Auto) 15.3 L (25.0-50.0) % [place] % (Auto) 18.3 H (2.0-11.0) % Eos % (Auto) 1.2 (0.0-4.0) % Baso % (Auto) 0.2 (0.2-1.2) % Sodium 138 (136-145) mmol/L Potassium 3.4 L (3.5-5.1) mmol/L Chloride 97 L (98-107) mmol/L Carbon Dioxide 30 (21-32) mmol/L Anion Gap 14.4 (10-20) mmol/L BUN 18 (7-18) mg/dL Creatinine 1.2 H (0.55-1.02) mg/dL Est Cr Clr Drug Dosing 31.04 mL/min Estimated GFR (MDRD) 44 Glucose 123 H (74-106) mg/dL POC Glucose 118 H (74-106) mg/dL Calcium 8.7 (8.5-10.1) mg/dL Eduin Results Last 24 Hours: Microbiology 05/29/20 21:18 Aerobic Blood Culture - Preliminary Blood - Venous - Lab Draw NO GROWTH AFTER 1 DAY Anaerobic Blood Culture - Preliminary NO GROWTH AFTER 1 DAY 05/29/20 20:40 Urine Culture - Preliminary Urine, Voided Gram Negative Rods 05/29/20 20:30 Aerobic Blood Culture - Preliminary Blood - Venous Gram Negative Rods Anaerobic Blood Culture - Preliminary Gram Negative Rods Med Orders - Current: Current Medications Acetaminophen (Tylenol) 650 mg PO Q6H PRN PRN Reason: Fever Last Admin: 05/30/20 08:08 Dose: 650 mg Documented by: Hydrocodone Bitart/Acetaminophen ([place] 325-5 Mg) 1 tab PO TID [facility] Last Admin: 05/31/20 07:45 Dose: 1 tab Documented by: Calcium Citrate (Calcium Citrate + D) 1 tab PO BID [facility] Last Admin: 05/31/20 07:44 Dose: 1 tab Documented by: Enoxaparin Sodium (Lovenox) 40 mg SUBCUT DAILY [facility] Last Admin: 05/31/20 07:44 Dose: 40 mg Documented by: Piperacillin Sod/Tazobactam (Sod 3.375 gm/ Sodium Chloride) 100 mls @ 25 mls/hr IV Q8H [facility] Last Admin: 05/31/20 03:48 Dose: 25 mls/hr Documented by: Insulin Glargine (Lantus) 24 unit SUBCUT DAILY [facility] Last Admin: 05/31/20 07:47 Dose: 24 units Documented by: Insulin Human Lispro (Humalog) 10 unit SUBCUT DAILY@1200 [facility] Last Admin: 05/30/20 11:48 Dose: 10 units Documented by: Insulin Human Lispro (Humalog) 10 unit SUBCUT DAILY@1700 [facility] Last Admin: 05/30/20 17:50 Dose: 10 units Documented by: Insulin Human Lispro (Humalog) 7 unit SUBCUT DAILY [facility] Last Admin: 05/31/20 07:48 Dose: 7 units Documented by: Magnesium Oxide (Magnesium Oxide) 400 mg PO DAILY [facility] Last Admin: 05/31/20 07:54 Dose: 400 mg Documented by: Metoprolol Tartrate (Lopressor) 25 mg PO BID [facility] Last Admin: 05/31/20 07:52 Dose: 25 mg Documented by: Morphine Sulfate (Morphine) 4 mg IVPUSH Q4H PRN PRN Reason: Pain Last Admin: 05/31/20 03:57 Dose: 4 mg Documented by: Omeprazole (Omeprazole) 20 mg PO DAILY [facility] Last Admin: 05/31/20 07:46 Dose: 20 mg Documented by: Ondansetron HCl (Zofran Odt) 4 mg PO Q6H PRN PRN Reason: nausea, able to take PO Senna/Docusate Sodium (Senna Plus) 1 tab PO BID [facility] Last Admin: 05/31/20 07:46 Dose: 1 tab Documented by: Simethicone (Simethicone) 80 mg PO Q4H PRN PRN Reason: Bloating Last Admin: 05/30/20 08:56 Dose: 80 mg Documented by: Sodium Chloride (Saline Flush) 10 ml FLUSH ASDIRECTED PRN PRN Reason: Keep Vein Open Last Admin: 05/30/20 20:21 Dose: 10 ml Documented by: Discontinued Medications Acetaminophen (Tylenol Extra Strength) 1,000 mg PO ONETIME ONE Stop: 05/29/20 20:28 Last Admin: 05/29/20 20:35 Dose: 1,000 mg Documented by: Hydrocodone Bitart/Acetaminophen ([place] 325-5 Mg) 1 tab PO QID PRN PRN Reason: Pain Calcium Citrate (Calcium Citrate + D) 2 tab PO BID [facility] Last Admin: 05/30/20 08:08 Dose: 2 tab Documented by: Ceftriaxone Sodium (Rocephin) 2 gm IVPUSH STAT ONE Stop: 05/29/20 20:41 Last Admin: 05/29/20 20:47 Dose: 2 gm Documented by: Gabapentin (Neurontin) 100 mg PO BEDTIME [facility] Hydrochlorothiazide (Hydrochlorothiazide) 12.5 mg PO DAILY [facility] Last Admin: 05/30/20 08:09 Dose: 12.5 mg Documented by: Lactated Ringer's (Ringers, Lactated) 1,000 mls @ 999 mls/hr IV ONETIME ONE Stop: 05/29/20 21:29 Last Admin: 05/29/20 20:50 Dose: 999 mls/hr Documented by: Ciprofloxacin/Dextrose 400 mg/ (Premix) 200 mls @ 200 mls/hr IV STAT ONE Stop: 05/29/20 21:47 Last Admin: 05/29/20 20:55 Dose: 200 mls/hr Documented by: Lactated Ringer's (Ringers, Lactated) 1,000 mls @ 100 mls/hr IV ASDIRECTED [facility] Last Admin: 05/30/20 08:10 Dose: 100 mls/hr Documented by: Sodium Chloride (Normal Saline) 500 mls @ 100 mls/hr IV ASDIRECTED [facility] Sodium Chloride (Normal Saline) 500 mls @ 100 mls/hr IV ASDIRECTED [facility] Last Admin: 05/30/20 12:22 Dose: 100 mls/hr Documented by: Insulin Glargine (Lantus) 24 unit SUBCUT BEDTIME [facility] Insulin Human Lispro (Humalog) 5 unit SUBCUT DAILY ONE Stop: 05/30/20 07:01 Last Admin: 05/30/20 06:35 Dose: 5 units Documented by: Iopamidol (Isovue-300 (61%)) 100 ml IVPUSH ONETIME ONE Stop: 05/29/20 22:16 Last Admin: 05/29/20 22:16 Dose: 100 ml Documented by: Metoprolol Tartrate (Lopressor) 50 mg PO BID [facility] Last Admin: 05/30/20 08:08 Dose: 50 mg Documented by: Morphine Sulfate (Morphine) 4 mg IVPUSH ONETIME ONE Stop: 05/29/20 22:25 Last Admin: 05/29/20 22:50 Dose: 4 mg Documented by: Ondansetron HCl (Zofran) 4 mg IV ONETIME ONE Stop: 05/29/20 20:56 Last Admin: 05/29/20 21:00 Dose: 4 mg Documented by: Senna/Docusate Sodium (Senna Plus) 2 tab PO BEDTIME [facility] - Exam General: Alert, Oriented, Cooperative, No Acute Distress HEENT: Pupils Equal, Pupils Reactive, Mucous Membr. Moist/[place] Neck: Supple, Trachea Midline, No Thyromegaly. No: Lymphadenopathy Lungs: Clear to Auscultation, Normal Respiratory Effort Cardiovascular: Regular Rate, Regular Rhythm, No Murmurs GI/Abdominal Exam: Normal Bowel Sounds, Soft, Non-Tender, No Organomegaly, No Distention, No Mass Extremities: Non-Tender, No Pedal Edema, Normal Capillary Refill Peripheral Pulses: 2+: Radial (L), Radial (R) Skin: Warm, Dry, Intact Neurological: No New Focal Deficit Sepsis Event Note - Evaluation Sepsis Screening Result: No Definite Risk - Focused Exam Vital Signs: Vital Signs Temp Pulse Pulse Resp BP BP Pulse Ox 05/31/20 07:52 83 136/73 05/31/20 06:00 36.7 C 83 14 105/54 L 91 L 05/31/20 02:00 37.9 C 77 16 129/54 L 91 L 05/30/20 22:00 36.9 C 76 16 131/56 L 97 - Problem List & Annotations (1) Sepsis SNOMED Code(s): 15424787 Code(s): A41.9 - SEPSIS, UNSPECIFIED ORGANISM Status: Acute Current Visit: Yes Qualifiers: Sepsis type: sepsis due to unspecified organism Sepsis acute organ dysfunction status: with acute organ dysfunction Severe sepsis acute organ dysfunction type: acute renal failure Acute renal failure type: unspecified Severe sepsis shock status: without septic shock Qualified Code(s): A41.9 - Sepsis, unspecified organism; R65.20 - Severe sepsis without septic shock; N17.9 - Acute kidney failure, unspecified (2) Pyelonephritis of right kidney SNOMED Code(s): 13837978 Code(s): N12 - TUBULO-INTERSTITIAL NEPHRITIS, NOT SPCF ACUTE OR CHRONIC Status: Acute Current Visit: Yes (3) Gram-negative bacteremia SNOMED Code(s): 290649404297 Code(s): R78.81 - BACTEREMIA Status: Acute Current Visit: Yes (4) ESTRELLA (acute kidney injury) SNOMED Code(s): 00745127, 97859525 Code(s): N17.9 - ACUTE KIDNEY FAILURE, UNSPECIFIED Status: Acute Current Visit: Yes (5) Diabetes mellitus SNOMED Code(s): 19968439 Code(s): E11.9 - TYPE 2 DIABETES MELLITUS WITHOUT COMPLICATIONS Status: Chronic Current Visit: Yes Qualifiers: Diabetes mellitus type: type 2 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: with nursing home use Diabetes mellitus complication status: with other specified complication Qualified Code(s): E11.69 - Type 2 diabetes mellitus with other specified complication; Z79.4 - [facility] (current) use of insulin (6) Anemia SNOMED Code(s): 983380020 Code(s): D64.9 - ANEMIA, UNSPECIFIED Status: Acute Current Visit: Yes Qualifiers: Anemia type: unspecified type Qualified Code(s): D64.9 - Anemia, unspecified (7) Hypertension SNOMED Code(s): 36736651 Code(s): I10 - ESSENTIAL (PRIMARY) HYPERTENSION Status: Chronic Current Visit: Yes Qualifiers: Hypertension type: essential hypertension Qualified Code(s): I10 - Essential (primary) hypertension (8) Chronic pain SNOMED Code(s): 01063369 Code(s): G89.29 - OTHER CHRONIC PAIN Status: Chronic Current Visit: Yes Qualifiers: Chronic pain type: chronic pain syndrome Qualified Code(s): G89.4 - Chronic pain syndrome (9) Constipation SNOMED Code(s): 80209519 Code(s): K59.00 - CONSTIPATION, UNSPECIFIED Status: Chronic Current Visit: No Qualifiers: Constipation type: unspecified constipation type Qualified Code(s): K59.00 - Constipation, unspecified (10) H/O gastric bypass SNOMED Code(s): 043586684 Code(s): Z98.89 - OTHER SPECIFIED POSTPROCEDURAL STATES * DO NOT USE * Status: Chronic Current Visit: No - Problem List Review Problem List Initiated/Reviewed/Updated: Yes - My Orders Last 24 Hours: My Active Orders 06/01/20 05:11 BASIC METABOLIC PANEL,BMP [CHEM] Routine CBC WITH AUTO DIFF [HEME] Routine - Assessment Assessment:: 74 yo female hospital day #2 admitted with sepsis secondary to pyelonephritis. Did have positive blood cultures already yesterday. Is clinically improving. - Plan Plan:: #1 Sepsis, secondary to #2 with other causes ruled out on admission #2 Pyelonephritis #3 Gram negative bacteremia, secondary to #2 - Patient is clinically improving and no longer meets sepsis criteria. WBC normal today. - IV fluids have been discontinued. Will bolus and/or resume PRN. BP is stable and creatinine is down. - Urine and blood cultures both growing gram negative rods. - Continue zosyn until final speciation and susceptibilities are available. - Repeat labs in the am. - Urology was contacted on admission and felt the patient could stay in [place] for antibiotics as long as she improves. #4 ESTRELLA, mild - Baseline creatinine is 1.0. Creatinine today down to 1.2 from 1.3 yesterday. - Therefore, no longer truly meeting criteria for ESTRELLA. - No further IV fluids today unless otherwise indicated by vital signs. - Will recheck tomorrow. #5 Diabetes Mellitus - Glucoses have been acceptable. - Will continue current insulin regimen. #6 Anemia - [place] to be secondary to hemodilution with recent procedure also a likely contributor. - Improved today. - Will monitor daily during hospitalization. #7 Hypertension - HCTZ is held due to ESTRELLA and hypotension. - Will possibly resume tomorrow depending on clinical course in the next 24 hours and labs tomorrow am. - Continue metoprolol. #8 Chronic Pain - Her hydrocodone is continued. - Gabapentin is currently held. #9 Constipation #10 s/p gastric bypass - If no BM today, will do more of a bowel regimen. - Otherwise, continue PPI. Patient will remain on acute today and will need to remain inpatient until final culture and susceptibility results available - earliest d/c would be tomorrow but likely planning Tuesday. Code status is full - discussed with admitting jose tobin. Patient is on lovenox for VTE prophylaxis.
[2020-05-31] MEDS: Sodium Chloride 0.9% 10 ML Syringe FLUSH PRN ×2 (11:42→20:26)
[2020-05-31] MEDS: Simethicone 80 MG Tab.Chew PO PRN (23:28)
[2020-05-31] MEDS: Acetaminophen 325 MG Tab PO PRN (23:28)
[2020-06-01] MEDS: Piperacillin/Tazobactam 3.375 GM in Sodium Chloride 0.9% 100 ML IV SCH ×3 (03:56→20:13)
[2020-06-01] MEDS: Sodium Chloride 0.9% 10 ML Syringe FLUSH PRN ×4 (04:00→20:13)
[2020-06-01] MEDS: Enoxaparin 40 MG/0.4 ML Syringe SUBCUT SCH (08:00)
[2020-06-01] MEDS: Insulin Lispro 100 Units/ML 3 ML Vial SUBCUT SCH ×2 (08:01→18:00)
[2020-06-01] MEDS: Acetaminophen/HYDROcodone 325-5 MG Tab PO SCH ×3 (08:04→20:13)
[2020-06-01] MEDS: Calcium Citrate/Vitamin D3 315 MG-250 Unit Tab PO SCH ×2 (08:06→20:13)
[2020-06-01] MEDS: Magnesium Oxide 400 MG Tab PO SCH (08:06)
[2020-06-01] MEDS: Omeprazole 20 MG Cap.CR PO SCH (08:06)
[2020-06-01] MEDS: Metoprolol Tartrate 25 MG Tab PO SCH ×2 (08:08→20:15)
[2020-06-01] MEDS: Simethicone 80 MG Tab.Chew PO PRN ×2 (08:09→20:14)
[2020-06-01 08:10] LABS: ANION GAP 11.3 mmol/L (10-20)
[2020-06-01] MEDS: Insulin Glarg,Human.Rec.Analog 100 Unit/ML SUBCUT SCH (08:16)
--- NOTE | 2020-06-01 09:04 | PCM.PN ---
- General Info Date of Service: 06/01/20 Subjective Update: 74 yo female hospital day #3 admitted with sepsis secondary to pyelonephritis. Patient continues to have intermittent abdominal pain and excessive belching. She did have a bowel movement last evening and is passing gas. Bowel movements have been loose. No blood. She has had no nausea or vomiting. Pain is responding well to simethicone and hydrocodone. No flank pain. Dysuria persists but is improving. Frequency is resolved. She had some chills last night but no fever. - Review of Systems General: Reports: No Symptoms HEENT: Reports: No Symptoms Pulmonary: Reports: No Symptoms Cardiovascular: Reports: No Symptoms Gastrointestinal: Reports: Abdominal Pain, Diarrhea, Flatus 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: Reports: Dysuria Musculoskeletal: Reports: No Symptoms Skin: Reports: No Symptoms Neurological: Reports: No Symptoms - Patient Data Vitals - Most Recent: Last Vital Signs Temp 37.0 C 06/01/20 06:00 Pulse 75 06/01/20 08:08 Resp 18 06/01/20 06:00 BP 127/70 06/01/20 08:08 Pulse Ox 96 06/01/20 06:00 Weight - Most Recent: 66.95 kg I&O - Last 24 Hours: Intake & Output 05/31/20 06/01/20 06/01/20 22:59 06:59 14:59 Intake Total 280 150 Output Total 600 Balance 280 -450 Lab Results Last 24 Hours: Laboratory Results - last 24 hr 05/31/20 05/31/20 05/31/20 Range/Units 10:41 16:42 17:32 WBC (4.0-10.0) x10^3/uL RBC (4.00-5.50) x10^6/uL Hgb (12.0-16.0) g/dL Hct (33.0-47.0) % MCV (78.0-93.0) fL MCH (26.0-32.0) pg MCHC (32.0-36.0) g/dL RDW Coeff of Justine (10.0-15.0) % Plt Count (130-400) x10^3/uL Neut % (Auto) (50.0-80.0) % Lymph % (Auto) (25.0-50.0) % [place] % (Auto) (2.0-11.0) % Eos % (Auto) (0.0-4.0) % Baso % (Auto) (0.2-1.2) % Sodium (136-145) mmol/L Potassium (3.5-5.1) mmol/L Chloride (98-107) mmol/L Carbon Dioxide (21-32) mmol/L Anion Gap (10-20) mmol/L BUN (7-18) mg/dL Creatinine (0.55-1.02) mg/dL Est Cr Clr Drug Dosing mL/min Estimated GFR (MDRD) Glucose (74-106) mg/dL POC Glucose 136 H 64 L 105 (74-106) mg/dL Calcium (8.5-10.1) mg/dL 05/31/20 06/01/20 06/01/20 Range/Units 20:22 06:39 07:44 WBC 4.8 (4.0-10.0) x10^3/uL RBC 3.80 L (4.00-5.50) x10^6/uL Hgb 11.9 L (12.0-16.0) g/dL Hct 35.3 (33.0-47.0) % MCV 92.9 (78.0-93.0) fL MCH 31.3 (26.0-32.0) pg MCHC 33.7 (32.0-36.0) g/dL RDW Coeff of Justine 12.2 (10.0-15.0) % Plt Count 196 (130-400) x10^3/uL Neut % (Auto) 49.6 L (50.0-80.0) % Lymph % (Auto) 24.6 L (25.0-50.0) % [place] % (Auto) 22.1 H (2.0-11.0) % Eos % (Auto) 3.5 (0.0-4.0) % Baso % (Auto) 0.2 (0.2-1.2) % Sodium (136-145) mmol/L Potassium (3.5-5.1) mmol/L Chloride (98-107) mmol/L Carbon Dioxide (21-32) mmol/L Anion Gap (10-20) mmol/L BUN (7-18) mg/dL Creatinine (0.55-1.02) mg/dL Est Cr Clr Drug Dosing mL/min Estimated GFR (MDRD) Glucose (74-106) mg/dL POC Glucose 88 100 (74-106) mg/dL Calcium (8.5-10.1) mg/dL 06/01/20 Range/Units 07:44 WBC (4.0-10.0) x10^3/uL RBC (4.00-5.50) x10^6/uL Hgb (12.0-16.0) g/dL Hct (33.0-47.0) % MCV (78.0-93.0) fL MCH (26.0-32.0) pg MCHC (32.0-36.0) g/dL RDW Coeff of Justine (10.0-15.0) % Plt Count (130-400) x10^3/uL Neut % (Auto) (50.0-80.0) % Lymph % (Auto) (25.0-50.0) % [place] % (Auto) (2.0-11.0) % Eos % (Auto) (0.0-4.0) % Baso % (Auto) (0.2-1.2) % Sodium 143 (136-145) mmol/L Potassium 3.3 L (3.5-5.1) mmol/L Chloride 102 (98-107) mmol/L Carbon Dioxide 33 H (21-32) mmol/L Anion Gap 11.3 (10-20) mmol/L BUN 18 (7-18) mg/dL Creatinine 1.1 H (0.55-1.02) mg/dL Est Cr Clr Drug Dosing 33.86 mL/min Estimated GFR (MDRD) 49 Glucose 116 H (74-106) mg/dL POC Glucose (74-106) mg/dL Calcium 8.8 (8.5-10.1) mg/dL Eduin Results Last 24 Hours: Microbiology 05/29/20 21:18 Aerobic Blood Culture - Preliminary Blood - Venous - Lab Draw NO GROWTH AFTER 2 DAYS Anaerobic Blood Culture - Preliminary NO GROWTH AFTER 2 DAYS 05/29/20 20:30 Aerobic Blood Culture - Preliminary Blood - Venous Gram Negative Rods Anaerobic Blood Culture - Preliminary Gram Negative Rods 05/29/20 20:40 Urine Culture - Final Urine, Voided Escherichia Coli Med Orders - Current: Current Medications Acetaminophen (Tylenol) 650 mg PO Q6H PRN PRN Reason: Fever Last Admin: 05/31/20 23:28 Dose: 650 mg Documented by: Hydrocodone Bitart/Acetaminophen (Reagan 325-5 Mg) 1 tab PO TID [facility] Last Admin: 06/01/20 08:04 Dose: 1 tab Documented by: Calcium Citrate (Calcium Citrate + D) 1 tab PO BID [facility] Last Admin: 06/01/20 08:06 Dose: 1 tab Documented by: Enoxaparin Sodium (Lovenox) 40 mg SUBCUT DAILY [facility] Last Admin: 06/01/20 08:00 Dose: 40 mg Documented by: Piperacillin Sod/Tazobactam (Sod 3.375 gm/ Sodium Chloride) 100 mls @ 25 mls/hr IV Q8H [facility] Last Admin: 06/01/20 03:56 Dose: 25 mls/hr Documented by: Insulin Glargine (Lantus) 24 unit SUBCUT DAILY [facility] Last Admin: 06/01/20 08:16 Dose: 24 units Documented by: Insulin Human Lispro (Humalog) 10 unit SUBCUT DAILY@1700 [facility] Last Admin: 05/31/20 17:35 Dose: 10 units Documented by: Insulin Human Lispro (Humalog) 7 unit SUBCUT DAILY [facility] Last Admin: 06/01/20 08:01 Dose: 7 units Documented by: Insulin Human Lispro (Humalog) 8 unit SUBCUT DAILY@1200 [facility] Magnesium Oxide (Magnesium Oxide) 400 mg PO DAILY [facility] Last Admin: 06/01/20 08:06 Dose: 400 mg Documented by: Metoprolol Tartrate (Lopressor) 25 mg PO BID [facility] Last Admin: 06/01/20 08:08 Dose: 25 mg Documented by: Omeprazole (Omeprazole) 20 mg PO DAILY [facility] Last Admin: 06/01/20 08:06 Dose: 20 mg Documented by: Ondansetron HCl (Zofran Odt) 4 mg PO Q6H PRN PRN Reason: nausea, able to take PO Senna/Docusate Sodium (Senna Plus) 1 tab PO BID [facility] Last Admin: 06/01/20 08:06 Dose: 1 tab Documented by: Simethicone (Simethicone) 80 mg PO Q4H PRN PRN Reason: Bloating Last Admin: 06/01/20 08:09 Dose: 80 mg Documented by: Sodium Chloride (Saline Flush) 10 ml FLUSH ASDIRECTED PRN PRN Reason: Keep Vein Open Last Admin: 06/01/20 08:06 Dose: 10 ml Documented by: Discontinued Medications Acetaminophen (Tylenol Extra Strength) 1,000 mg PO ONETIME ONE Stop: 05/29/20 20:28 Last Admin: 05/29/20 20:35 Dose: 1,000 mg Documented by: Hydrocodone Bitart/Acetaminophen (Reagan 325-5 Mg) 1 tab PO QID PRN PRN Reason: Pain Calcium Citrate (Calcium Citrate + D) 2 tab PO BID [facility] Last Admin: 05/30/20 08:08 Dose: 2 tab Documented by: Ceftriaxone Sodium (Rocephin) 2 gm IVPUSH STAT ONE Stop: 05/29/20 20:41 Last Admin: 05/29/20 20:47 Dose: 2 gm Documented by: Gabapentin (Neurontin) 100 mg PO BEDTIME [facility] Hydrochlorothiazide (Hydrochlorothiazide) 12.5 mg PO DAILY [facility] Last Admin: 05/30/20 08:09 Dose: 12.5 mg Documented by: Lactated Ringer's (Ringers, Lactated) 1,000 mls @ 999 mls/hr IV ONETIME ONE Stop: 05/29/20 21:29 Last Admin: 05/29/20 20:50 Dose: 999 mls/hr Documented by: Ciprofloxacin/Dextrose 400 mg/ (Premix) 200 mls @ 200 mls/hr IV STAT ONE Stop: 05/29/20 21:47 Last Admin: 05/29/20 20:55 Dose: 200 mls/hr Documented by: Lactated Ringer's (Ringers, Lactated) 1,000 mls @ 100 mls/hr IV ASDIRECTED [facility] Last Admin: 05/30/20 08:10 Dose: 100 mls/hr Documented by: Sodium Chloride (Normal Saline) 500 mls @ 100 mls/hr IV ASDIRECTED [facility] Sodium Chloride (Normal Saline) 500 mls @ 100 mls/hr IV ASDIRECTED [facility] Last Admin: 05/30/20 12:22 Dose: 100 mls/hr Documented by: Insulin Glargine (Lantus) 24 unit SUBCUT BEDTIME [facility] Insulin Human Lispro (Humalog) 10 unit SUBCUT DAILY@1200 [facility] Last Admin: 05/31/20 11:49 Dose: 10 units Documented by: Insulin Human Lispro (Humalog) 5 unit SUBCUT DAILY ONE Stop: 05/30/20 07:01 Last Admin: 05/30/20 06:35 Dose: 5 units Documented by: Iopamidol (Isovue-300 (61%)) 100 ml IVPUSH ONETIME ONE Stop: 05/29/20 22:16 Last Admin: 05/29/20 22:16 Dose: 100 ml Documented by: Metoprolol Tartrate (Lopressor) 50 mg PO BID [facility] Last Admin: 05/30/20 08:08 Dose: 50 mg Documented by: Morphine Sulfate (Morphine) 4 mg IVPUSH ONETIME ONE Stop: 05/29/20 22:25 Last Admin: 05/29/20 22:50 Dose: 4 mg Documented by: Morphine Sulfate (Morphine) 4 mg IVPUSH Q4H PRN PRN Reason: Pain Last Admin: 05/31/20 03:57 Dose: 4 mg Documented by: Ondansetron HCl (Zofran) 4 mg IV ONETIME ONE Stop: 05/29/20 20:56 Last Admin: 05/29/20 21:00 Dose: 4 mg Documented by: Senna/Docusate Sodium (Senna Plus) 2 tab PO BEDTIME [facility] - Exam General: Alert, Oriented, Cooperative, No Acute Distress HEENT: Mucous Membr. Moist/[place] Neck: Supple, Trachea Midline, No Thyromegaly. No: Lymphadenopathy Lungs: Clear to Auscultation, Normal Respiratory Effort Cardiovascular: Regular Rate, Regular Rhythm, No Murmurs GI/Abdominal Exam: Normal Bowel Sounds, Soft, Non-Tender, No Organomegaly, No Distention, No Mass Extremities: Non-Tender, No Pedal Edema, Normal Capillary Refill Peripheral Pulses: 2+: Radial (L), Radial (R) Skin: Warm, Dry, Intact Sepsis Event Note - Evaluation Sepsis Screening Result: No Definite Risk - Focused Exam Vital Signs: Vital Signs Temp Pulse Pulse Resp BP BP Pulse Ox 06/01/20 08:08 75 127/70 06/01/20 06:00 37.0 C 78 18 124/62 96 06/01/20 02:00 37.7 C 65 16 128/69 95 05/31/20 22:00 37.7 C 65 16 112/56 L 93 L - Problem List & Annotations (1) Sepsis SNOMED Code(s): 60764751 Code(s): A41.9 - SEPSIS, UNSPECIFIED ORGANISM Status: Acute Current Visit: Yes Qualifiers: Sepsis type: sepsis due to unspecified organism Sepsis acute organ dysfunction status: with acute organ dysfunction Severe sepsis acute organ dysfunction type: acute renal failure Acute renal failure type: unspecified Severe sepsis shock status: without septic shock Qualified Code(s): A41.9 - S epsis, unspecified organism; R65.20 - Severe sepsis without septic shock; N17.9 - Acute kidney failure, unspecified (2) Pyelonephritis of right kidney SNOMED Code(s): 30997302 Code(s): N12 - TUBULO-INTERSTITIAL NEPHRITIS, NOT SPCF ACUTE OR CHRONIC Status: Acute Current Visit: Yes (3) Gram-negative bacteremia SNOMED Code(s): 249091645252 Code(s): R78.81 - BACTEREMIA Status: Acute Current Visit: Yes (4) ESTRELLA (acute kidney injury) SNOMED Code(s): 11821730, 74652703 Code(s): N17.9 - ACUTE KIDNEY FAILURE, UNSPECIFIED Status: Acute Current Visit: Yes (5) Diabetes mellitus SNOMED Code(s): 93314566 Code(s): E11.9 - TYPE 2 DIABETES MELLITUS WITHOUT COMPLICATIONS Status: Chronic Current Visit: Yes Qualifiers: Diabetes mellitus type: type 2 Diabetes mellitus supervisor long goods insulin use: with prison use Diabetes mellitus complication status: with other specified complication Qualified Code(s): E11.69 - Type 2 diabetes mellitus with other specified complication; Z79.4 - long-term (current) use of insulin (6) Anemia SNOMED Code(s): 334494755 Code(s): D64.9 - ANEMIA, UNSPECIFIED Status: Acute Current Visit: Yes Qualifiers: Anemia type: unspecified type Qualified Code(s): D64.9 - Anemia, unspecified (7) Hypertension SNOMED Code(s): 62823856 Code(s): I10 - ESSENTIAL (PRIMARY) HYPERTENSION Status: Chronic Current Visit: Yes Qualifiers: Hypertension type: essential hypertension Qualified Code(s): I10 - Essential (primary) hypertension (8) Chronic pain SNOMED Code(s): 33209922 Code(s): G89.29 - OTHER CHRONIC PAIN Status: Chronic Current Visit: Yes Qualifiers: Chronic pain type: chronic pain syndrome Qualified Code(s): G89.4 - Chronic pain syndrome (9) Constipation SNOMED Code(s): 40947914 Code(s): K59.00 - CONSTIPATION, UNSPECIFIED Status: Chronic Current Visit: No Qualifiers: Constipation type: unspecified constipation type Qualified Code(s): K59.00 - Constipation, unspecified (10) H/O gastric bypass SNOMED Code(s): 611858041 Code(s): Z98.89 - OTHER SPECIFIED POSTPROCEDURAL STATES * DO NOT USE * Status: Chronic Current Visit: No - Problem List Review Problem List Initiated/Reviewed/Updated: Yes - My Orders Last 24 Hours: My Active Orders 06/01/20 12:00 Insulin Lispro [HumaLOG] 8 unit SUBCUT DAILY@1200 - Assessment Assessment:: 74 yo female hospital day #3 admitted with sepsis secondary to pyelonephritis. Did have positive blood cultures already yesterday. Continues to improve. Suspe ct GI symptoms at least in part related to antibiotics. - Plan Plan:: #1 Sepsis, secondary to #2 with other causes ruled out on admission, resolved #2 Pyelonephritis #3 Gram negative bacteremia, secondary to #2 - Sepsis is resolved. - No further IV fluids unless her vital signs change. - Urine cultures grew E. coli that is shah-susceptible. Blood cultures still preliminary with gram negative rods. - Continue zosyn until final speciation and susceptibilities are available. Did offer to change to cefdinir given presumed GI upset from zosyn but she is nerv ous to do this until her blood culture results are available, which is reasonable. - Repeat labs in the am. - Urology was contacted on admission and felt the patient could stay in [place] for antibiotics as long as she improves. #4 ESTRELLA, mild, resolved - Baseline creatinine is 1.0. Creatinine today down to 1.1 from 1.2 yesterday and 1.3 on admission. - Therefore, ESTRELLA is resolved. - No further IV fluids today unless otherwise indicated by vital signs. - Will recheck tomorrow. #5 Diabetes Mellitus - Glucoses have been acceptable overall. Did have a low yesterday afternoon. - Therefore, will decrease lunch insulin to 8 units from 10 units. - Will otherwise continue current insulin regimen. #6 Anemia - [place] to be secondary to hemodilution with recent procedure also a likely contributor. - Continuing to improve and near normal today. - Will monitor daily during hospitalization. #7 Hypertension - HCTZ is held due to ESTRELLA and hypotension. BP's have been within goal without this; therefore, will continue to hold. - Continue metoprolol. #8 Chronic Pain - Her hydrocodone is continued. - Gabapentin is currently held. #9 Constipation #10 s/p gastric bypass - As above, suspect some of her GI symptoms are related to the zosyn and will improve once she transitions to oral antibiotics, which should be later today. - No red flags to warrant abdominal imaging. - Continue current management. - Otherwise, continue PPI. Patient will remain on acute today and will need to remain inpatient until final culture and susceptibility results available - anticipate d/c tomorrow to allow for final culture results to return but also so she is discharged when the pharmacy is open and there can be no lapse in antibiotic coverage. Code status is full - discussed with admitting provider. Patient is on lovenox for VTE prophylaxis.
[2020-06-01] MEDS ORDERED: Insulin Lispro 100 Units/ML 3 ML Vial SUBCUT SCH (12:00)
[2020-06-01] MEDS: Cefdinir 300 MG Cap PO SCH (20:14)
[2020-06-02] MEDS: Acetaminophen 325 MG Tab PO PRN ×2 (00:30→23:19)
[2020-06-02] MEDS: Simethicone 80 MG Tab.Chew PO PRN (02:51)
[2020-06-02 07:21] LABS: ANION GAP 11.1 mmol/L (10-20)
[2020-06-02] MEDS: Cefdinir 300 MG Cap PO SCH ×2 (08:02→20:25)
[2020-06-02] MEDS: Enoxaparin 40 MG/0.4 ML Syringe SUBCUT SCH (08:02)
[2020-06-02] MEDS: Magnesium Oxide 400 MG Tab PO SCH (08:02)
[2020-06-02] MEDS: Acetaminophen/HYDROcodone 325-5 MG Tab PO SCH ×3 (08:02→20:26)
[2020-06-02] MEDS: Metoprolol Tartrate 25 MG Tab PO SCH (08:03)
[2020-06-02] MEDS: Omeprazole 20 MG Cap.CR PO SCH (08:03)
[2020-06-02] MEDS: Calcium Citrate/Vitamin D3 315 MG-250 Unit Tab PO SCH ×2 (08:06→20:27)
[2020-06-02] MEDS: Insulin Lispro 100 Units/ML 3 ML Vial SUBCUT SCH ×2 (08:07→10:01)
[2020-06-02] MEDS: Insulin Glarg,Human.Rec.Analog 100 Unit/ML SUBCUT SCH (08:08)
[2020-06-02] MEDS ORDERED: Loperamide 2 MG Cap PO PRN (08:59)
[2020-06-02] MEDS ORDERED: Magnesium Sulfate/Water 2 GM in Premix Bag 1 BAG IV ONE (09:30)
--- NOTE | 2020-06-02 10:00 | PN ---
Progress Note for CHARLES FREEMAN Date: 06/02/2020 Room #: VM.202 SUBJECTIVE: Dictation #1 on a 74-year-old admitted with E coli bacteremia and pyelonephritis. This is hospital day #4. She has been afebrile, but she started having diarrhea yesterday. She had 3 loose stools overnight. Before that, she had not had a bowel movement for several days. She is not having any shortness of breath or cough, but she had a lot of trouble sleeping last night. Did have some abdominal distention and gas. It lasted about an hour. Otherwise, she is not having any severe abdominal or flank pain. She does have chronic back pain. She did have low blood sugar yesterday down to 62. She is still eating just minimal amounts of her meals, but did have 100% for breakfast this a.m. OBJECTIVE: Vital Signs: She has a weight 66.2 kg, temperature 98.4, pulse 91, blood pressure 154/73, respiratory rate 16, and O2 of 97% on room air. General: She is in no acute distress. Heart: Regular rate and rhythm. S1 and S2 without murmur. Lungs: Lung sounds are clear to auscultation bilaterally without crackles or wheezes. Abdomen: Has positive bowel sounds. Soft and nontender. Extremities: Warm and dry. No edema. LABORATORY DATA: White count 6.6, hemoglobin stable at 11.6, platelets 231. Sodium 143, potassium 3.1, chloride 105, bicarb 30, BUN 18, creatinine 1, glucose 136. Her blood sugars have all been otherwise excellent, 150 or less. ASSESSMENT AND PLAN: 1. Sepsis secondary to Escherichia coli bacteremia. 2. Escherichia coli bacteremia secondary to pyelonephritis. 3. Pyelonephritis. 4. Type 2 diabetes, uncontrolled previously, but well controlled with hypoglycemia. We will adjust insulin. 5. Mild anemia. Hemoglobins are stable. 6. Essential hypertension. Blood pressure now uncontrolled, off hydrochlorothiazide and decreased doses of metoprolol, which were done due to hypotension. 7. History of gastric ulcer and bypass. 8. Loose stools, on laxatives. Those have been stopped. 9. Chronic pain, on hydrocodone. 10.Hypokalemia. We will check a magnesium and replace orally. The plan at this point, the patient will continue acute cares. She had been switched over to oral antibiotics this morning, but due to the fact she is staying in the hospital, we will give her a dose of Rocephin today. She will be assessed by PT. We will get her potassium replaced. We will increase her metoprolol. We will adjust her insulin and anticipate that she will be stable for discharge tomorrow. She will be seen by PT, and she will have Lovenox for DVT prophylaxis. We will also make sure that her diarrhea does not worsen, and she has no further episodes of abdominal pain, which did sort of sound like a short ileus. MKA: 06/02/2020 09:04:38 MODL: 06/02/2020 09:31:07 /[id number]
[2020-06-02] MEDS ORDERED: Insulin Lispro 100 Units/ML 3 ML Vial SUBCUT SCH ×2 (12:00→17:30)
[2020-06-02] MEDS: cefTRIAXone 1 GM Vial IVPUSH SCH (12:19)
[2020-06-02] MEDS: Potassium Chloride 20 MEQ Tab.ER PO SCH (17:45)
[2020-06-02] MEDS: Metoprolol Tartrate 50 MG Tab PO SCH (20:25)
[2020-06-02] MEDS: Sodium Chloride 0.9% 10 ML Syringe FLUSH PRN (20:28)
[2020-06-03 05:24] VITALS: BP 134/78
[2020-06-03] MEDS ORDERED: Omeprazole 20 MG Cap.CR PO SCH (07:00)
[2020-06-03 07:02] LABS: CHLORIDE,CL 106 mmol/L (98-107); SODIUM,NA 143 mmol/L (136-145)
[2020-06-03] MEDS: cefTRIAXone 1 GM Vial IVPUSH SCH (08:24)
[2020-06-03] MEDS: Enoxaparin 40 MG/0.4 ML Syringe SUBCUT SCH ×2 (08:25→08:30)
[2020-06-03] MEDS: Acetaminophen/HYDROcodone 325-5 MG Tab PO SCH (08:25)
[2020-06-03] MEDS: Potassium Chloride 20 MEQ Tab.ER PO SCH (08:25)
[2020-06-03] MEDS: Calcium Citrate/Vitamin D3 315 MG-250 Unit Tab PO SCH (08:25)
[2020-06-03] MEDS: Cefdinir 300 MG Cap PO SCH (08:25)
[2020-06-03] MEDS: Sodium Chloride 0.9% 10 ML Syringe FLUSH PRN (08:25)
[2020-06-03] MEDS: Insulin Glarg,Human.Rec.Analog 100 Unit/ML SUBCUT SCH (08:26)
[2020-06-03] MEDS: Insulin Lispro 100 Units/ML 3 ML Vial SUBCUT SCH (08:27)
[2020-06-03] MEDS: Metoprolol Tartrate 50 MG Tab PO SCH (08:29)
[2020-06-03 08:30] VITALS: PULSE 70
--- NOTE | 2020-06-04 08:40 | DISCH ---
PRIMARY DISCHARGE DIAGNOSES: 1. Sepsis secondary to Escherichia coli bacteremia. 2. Escherichia coli bacteremia secondary to pyelonephritis. 3. Pyelonephritis with recent stent and stent removal. 4. Type 2 diabetes, previously uncontrolled, but with well-controlled blood sugars and hypoglycemia here. 5. Mild anemia. 6. Essential hypertension, controlled. 7. History of gastric ulcers and gastric bypass. 8. Loose stools, likely related to no bowel movements for several days and then her laxative use. 9. Chronic back pain due to previous compression fractures and degenerative back disease. 10.Hypokalemia and hypomagnesemia, resolved, treated with intravenous magnesium. REASON FOR ADMISSION: On the date of admission, this 74-year-old female came into the ER with fever of 104 and aching all over. She was found to have a positive urine test. She was given IV Rocephin, then IV Cipro. By the next day, her blood cultures were positive for gram negatives and she was switched over to IV Zosyn. When final culture came back yesterday, she was decided to be on cefdinir in the morning by the weekend doctor. However, she was having poor oral intake. She was not eating well, and decision was made for her to have IV Rocephin. Otherwise, she was not having any shortness of breath, cough, or trouble breathing. She was afebrile for the last several days. Her insulin doses were decreased and she had no further low blood sugars. We had likely been giving her too much insulin for the fact that she was not eating well until around the 29th in the evening she finally had about 90% of her meals. Now, she is eating better. She is not having any more stomach problems. She did have some bloating a couple of nights ago, but is really having trouble sleeping here. PHYSICAL EXAMINATION: Discharging Vitals: Her weight is 66.6 kg, temperature 97.8, pulse 78, blood pressure 134/78, respiratory rate 16, O2 of 98% on room air. We did restart her higher doses of metoprolol, which we initially held due to hypotension. General: She is in no acute distress. Heart: Regular rate and rhythm. S1, S2 without murmur. Lungs: Lung sounds are clear to auscultation bilaterally without crackles or wheezes. Abdomen: Has positive bowel sounds. Soft, nontender. She did have some bruising to the left lower abdomen. Extremities: Warm and dry. No edema. Mental Status: Alert and oriented x3. She is not depressed or anxious. DISCHARGE PLANS AND INSTRUCTIONS: She will recheck in the clinic in 1 to 2 weeks for post hospital followup with a BMP and mag in 1 week. She will take the cefdinir antibiotic twice daily for another 8 days. She will decrease Basaglar from 24 to 20 units if she continues to have low blood sugars at home, but did anticipate she will be eating better. She will begin potassium 20 mEq for 7 days. Her meal insulin will be 5 units with each meal, but hold if under 100. She will restart a stool softener if needed and eat yogurt or take a probiotic for the next 3 weeks to prevent diarrhea. The patient's white counts were normal during her stay. Her potassium was improved to 3.8 on discharge. Magnesium yesterday was 1.5 when she received IV magnesium. Her hemoglobin was 11.6 yesterday. Greater than 30 minutes spent on this discharge process. MKA: 06/03/2020 17:34:50 MODL: 06/03/2020 22:31:24 /[id number]
== END 2020-06-03 09:54 | disposition home or self-care (01) | DRG 862 ==
LOC: VM.ED 20:22 → VM.MS 22:56
PROVIDERS: ADMIT Nurse Practitioner Family; ATTEND Internal Medicine
DX: A41.9 Sepsis, unspecified organism (principal); T81.40XA Infection following a procedure, unspecified, initial encounter; R65.20 Severe sepsis without septic shock; N12 Tubulo-interstitial nephritis, not specified as acute or chronic; N17.9 Acute kidney failure, unspecified; I65.29 Occlusion and stenosis of unspecified carotid artery; T81.44XA Sepsis following a procedure, initial encounter; E11.649 Type 2 diabetes mellitus with hypoglycemia without coma; I10 Essential (primary) hypertension; G89.29 Other chronic pain; M54.9 Dorsalgia, unspecified; E11.9 Type 2 diabetes mellitus without complications; E87.6 Hypokalemia; D64.9 Anemia, unspecified; E61.1 Iron deficiency; Z85.89 Personal history of malignant neoplasm of other organs and systems; E83.42 Hypomagnesemia; E66.9 Obesity, unspecified; Z98.890 Other specified postprocedural states; Z88.1 Allergy status to other antibiotic agents; D50.9 Iron deficiency anemia, unspecified; G43.909 Migraine, unspecified, not intractable, without status migrainosus; Z20.828 Contact with and (suspected) exposure to other viral communicable diseases; K25.9 Gastric ulcer, unspecified as acute or chronic, without hemorrhage or perforation; N28.9 Disorder of kidney and ureter, unspecified; E78.00 Pure hypercholesterolemia, unspecified; G47.30 Sleep apnea, unspecified; K59.03 Drug induced constipation; Z96.659 Presence of unspecified artificial knee joint; Z79.891 Long term (current) use of opiate analgesic; Z90.710 Acquired absence of both cervix and uterus; Z98.84 Bariatric surgery status; Z87.01 Personal history of pneumonia (recurrent); Z90.49 Acquired absence of other specified parts of digestive tract; Z88.6 Allergy status to analgesic agent; Z88.8 Allergy status to other drugs, medicaments and biological substances; Z79.4 Long term (current) use of insulin; Z79.899 Other long term (current) drug therapy; Z99.81 Dependence on supplemental oxygen; Z85.42 Personal history of malignant neoplasm of other parts of uterus
CPT/HCPCS: 36415; 71045; 74177; 80048; 80053; 80069; 81001; 82962; 83605; 83735; 85025; 86140; 87040; 87077; 87086; 87088; 87186; 97161-GP; 99284; A9270-GY; J0696; J0744; J1650; J1815-GY; J2270; J2405; J2543; J3475; J7030; J7050; J7120; Q9967; U0002

== ENCOUNTER 2021-07-24 15:23 | Emergency (ER) | payer MEDICARE, OTHER ==
--- NOTE | 2021-07-24 15:46 | EDM.PDOC ---
ED HPI GENERAL MEDICAL PROBLEM - General Chief Complaint: General Stated Complaint: Weakness fatigue Time Seen by Provider: 07/24/21 15:30 Source of Information: Reports: Patient, Family History Limitations: Reports: No Limitations - History of Present Illness INITIAL COMMENTS - FREE TEXT/NARRATIVE: Patient states she was discharged from here Tuesday after being placed inpatient for several days secondary to Covid. She was discharged with dexamethasone to take while she was at home and she has been taking it religiously patient states she just is weak all over has no energy still has a cough and just feels terrible. She says it has not improved at all and is maybe gotten a little worse. She has been eating and drinking as much as she possibly can. She has no other complaints at this time she denies any nausea vomiting diarrhea abdominal pain headaches chest pain shortness of breath myalgias just fatigue and weakness She also states that she did have the immunoglobulin infusion here Duration: Day(s): Improves with: Reports: None Worsens with: Reports: None Associated Symptoms: Reports: Cough, Fever/Chills, Weakness. Denies: Confusion, Chest Pain, cough w sputum, Diaphoresis, Headaches, Loss of Appetite, Nausea/Vomiting, Shortness of Breath Treatments [employer] PRO[employer] SITE MONITOR: Reports: Acetaminophen - Related Data Allergies Allergy/AdvReac Type Severity Reaction Status Date / Time aspirin Allergy Cannot Verified 07/24/21 15:44 Remember NSAIDS (Non-Steroidal Allergy Other Verified 07/24/21 15:44 Anti-Inflamma Haidrak-LBM-ZwC Reductase Allergy Cannot Verified 07/24/21 15:44 Inhibitor Remember [Mwjhhou-Juo-Rko Reductase Inhibitor] atorvastatin [From Lipitor] AdvReac Muscle Verified 07/24/21 15:44 Aches glipizide AdvReac Chest Pain Verified 07/24/21 15:44 hydroxyzine [From Atarax] AdvReac Anxiety Verified 07/24/21 15:44 levofloxacin [From Levaquin] AdvReac Leg Cramps Verified 07/24/21 15:44 lisinopril [From Zestoretic] AdvReac Cough Verified 07/24/21 15:44 Home Meds: Home Meds Calcium Citrate/Vitamin D3 [Calcium Citrate - Vit D Tablet] 1 tab PO BID 04/01/17 [History] Magnesium Oxide 500 mg PO DAILY 04/01/17 [History] Metoprolol Tartrate 50 mg PO BID 04/01/17 [History] Omeprazole 20 mg PO DAILY 04/01/17 [History] Polyvinyl Alcohol/Povidone [Artificial Tears Drops] 1 drop EYERT Q4H PRN 04/01/17 [History] Insulin Glargine,Hum.Rec.Anlog [Basaglar Kwikpen U-100] 24 unit SQ BEDTIME 10/23/18 [History] polyethylene glycoL 3350 [MiraLAX] 17 gm PO DAILY PRN packet 02/20/20 [Rx] Ascorbic Acid [C-1000] 1,000 mg PO DAILY 05/30/20 [History] Cholecalciferol (Vitamin D3) [Vitamin D3] 1,000 unit PO DAILY 05/30/20 [History] Hydrocodone/Acetaminophen [HYDROcodone-Acetaminophen 7.5-325 MG] 1 tab PO TID PRN 05/30/20 [History] L.acidoph,Paracasei, B.lactis [Probiotic] 1 cap PO BEDTIME 05/30/20 [History] Zinc Sulfate [Zinc-220] 220 mg PO DAILY 05/30/20 [History] Insulin Aspart [NovoLOG] 5 units SUBCUT DAILY 07/13/21 [History] Insulin Aspart [NovoLOG] 10 units SUBCUT BID@12,18 07/13/21 [History] Multivit-Min/Iron/Folic Acid/K [Bariatric Mv-Iron 45 mg Cap] 1 each PO DAILY@1800 07/13/21 [History] Multivit-Min/Iron/Folic Acid/K [Bariatric Mv-Iron 45 mg Cap] 2 each PO DAILY 07/13/21 [History] Sennosides/Docusate Sodium [Senna Plus 8.6-50 mg Tablet] 2 each PO BEDTIME 07/13/21 [History] Albuterol [Proventil Neb Soln] 2.5 mg NEB Q2HR PRN #60 neb 07/20/21 [Rx] dexAMETHasone [Dexamethasone] 6 mg PO DAILY 3 Days tablet 07/20/21 [Rx] hydroCHLOROthiazide [Hydrochlorothiazide] 25 mg PO DAILY 07/20/21 [History] Past Medical History HEENT History: Reports: Other (See Below) Other HEENT History: Central retinal vein occlusion Cardiovascular History: Reports: High Cholesterol, Hypertension Other Cardiovascular History: Carotid artery stenosis. varicose veins Respiratory History: Reports: Pneumonia, Recurrent, Sleep Apnea Other Respiratory History: uses CPAP Gastrointestinal History: Reports: Other (See Below) Other Gastrointestinal History: Anastomotic ulcer S/P gastric bypass. Chronic constipation due to opioid use 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 History: Reports: Other (See Below) Other 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 History: dilated renal pelvis. 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 spinal stenosis. closed comp ression Fx of L3. greater trochanteris bursitis of left hip Neurological History: Reports: Migraines Psychiatric History: Reports: Other (See Below) Other Psychiatric History: Chronic continuous use of opioids. pain management agreement Endocrine/Metabolic History: Reports: Diabetes, Type II, Obesity/BMI 30+, Other (See Below) Other Endocrine/Metabolic History: Nontoxic uninodular goiter Hematologic History: Reports: Anemia, Iron Deficiency Oncologic (Cancer) History: Reports: Other (See Below) Other Oncologic History: endometrial cancer - Infectious Disease History Infectious Disease History: Reports: Novel Coronavirus - Past Surgical History Head Surgeries/Procedures: Reports: None HEENT Surgical History: Reports: Other (See Below) Other HEENT Surgeries/Procedures: eye shots every 5/6 wks Cardiovascular Surgical History: Reports: None GI Surgical History: Reports: Bariatric Procedure Female Surgical History: Reports: Hysterectomy Endocrine Surgical History: Reports: Thyroid Biopsy Neurological Surgical History: Reports: None Musculoskeletal Surgical History: Reports: Knee Replacement Other Musculoskeletal Surgeries/Procedures:: Spinal stenosis Social & Family History - Family History Family Medical History: Unobtainable - Caffeine Use Caffeine Use: Reports: Coffee - Living Situation & Occupation Living situation: Reports: ED ROS GENERAL - Review of Systems Review Of Systems: See Below Constitutional: Reports: Fever, Chills, Malaise, Weakness, Fatigue. Denies: Night Sweats, Decreased Appetite, Weight Loss HEENT: Reports: No Symptoms Respiratory: Reports: Cough. Denies: Shortness of Breath, Wheezing, Pleuritic Chest Pain Cardiovascular: Reports: No Symptoms Endocrine: Reports: Fatigue GI/Abdominal: Reports: No Symptoms : Reports: No Symptoms Musculoskeletal: Reports: No Symptoms Skin: Reports: No Symptoms Neurological: Reports: No Symptoms Psychiatric: Reports: No Symptoms Hematologic/Lymphatic: Reports: No Symptoms Immunologic: Reports: No Symptoms ED EXAM, NEURO - Physical Exam Exam: See Below Exam Limited By: No Limitations General Appearance: Alert, WD/WN, No Apparent Distress, Other (Patient looks like she does not feel well though laying in the bed) Eye Exam: Bilateral Eye: EOMI, Normal Inspection, PERRL Ears: Normal External Exam, Normal Canal, Hearing Grossly Normal, Normal TMs Nose: Normal Inspection, Normal Mucosa, No Blood Throat/Mouth: Normal Inspection, Normal Lips, Normal Teeth, Normal Gums, Normal Oropharynx, Normal Voice, No Airway Compromise, Other (Mild dry mucous membranes negative tenting of the skin) Head Exam: Atraumatic, Normocephalic Neck: Normal Inspection, Supple, Non-Tender, Full Range of Motion Respiratory/Chest: No Respiratory Distress, Lungs Clear, Normal Breath Sounds, No Accessory Muscle Use, Chest Non-Tender Cardiovascular: Normal Peripheral Pulses, Regular Rate, Rhythm, No Edema, No Gallop, No JVD, No Murmur, No Rub GI/Abdominal: Normal Bowel Sounds, Soft, Non-Tender, No Organomegaly, No Distention, No Abnormal Bruit Neurological: Alert, Normal Mood/Affect, Normal Dorsiflexion, CN II-XII Intact, Normal Plantar Flexion, No Motor/Sensory Deficits, Oriented x 3, Other (Patient 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) Back Exam: Full Range of Motion Extremities: Normal Inspection, Normal Range of Motion, Non-Tender, No Pedal Edema, Normal Capillary Refill Psychiatric: Normal Affect, Normal Mood Skin Exam: Warm, Dry, Intact, Normal Color, No Rash *Q Meaningful Use (ADM) - VTE *Q VTE Pharmacological Contraindications *Q: Renal Impairment - VTE Risk Assess *Q Each Risk Factor Represents 1 Point: None Total Score 1 Point Risk Factors: 0 Course - Vital Signs Text/Narrative:: White blood cell count 14.8 thousand potassium 3.1 BUN and creatinine elevated urinalysis no acute findings noted 40 mEq potassium solution p.o. 400 Mag-Ox 1 L normal saline bolus Reviewed discharge summary from 20 July when she was discharged white count at time of discharge was 10,000 she was discharged on dexamethasone albuterol inhaler And on home oxygen to be used per the patient and the they have not been using it secondary to her sats have been within normal limits. Spoke with Dr. Korina Celestin in regards to patient's presentation at the time of discharge states all her lab work and everything else was normal it was a pretty clear Covid case with Covid pneumonia but the patient was adamant about leaving Tuesday so she was discharged home. Secondary to the patient's elevated white count and Covid I do believe the white count is elevated secondary to the steroids but unsure I will cover with a macrolide Zithromax for 5 days patient is okay with taking antibiotics receiving potassium p.o. a bag of fluids and going home secondary to she wishes to go to the house. I explained to her and the the need for the use of oxygen and that all of her vital signs here have been normal Last Recorded V/S: Last Vital Signs Temp 36.3 C 07/24/21 17:52 Pulse 66 07/24/21 17:52 Resp 16 07/24/21 17:52 BP 151/76 H 07/24/21 17:52 Pulse Ox 95 07/24/21 17:52 - Orders/Labs/Meds Orders: Active Orders 24 hr Category Date Time Status Sodium Chloride 0.9% @ Wide Open(1,000ml) Med 07/24/21 18:01 Ordered Sodium Chloride 0.9% [Normal Saline] 1,000 ml IV ONETIME Medication Orders Sodium Chloride (Normal Saline) 1,000 mls @ 999 mls/hr IV ONETIME ONE Stop: 07/24/21 19:01 Labs: Laboratory Tests 07/24/21 07/24/21 07/24/21 Range/Units 15:49 15:49 16:26 WBC 14.1 H (4.0-10.0) x10^3/uL RBC 4.33 (4.00-5.50) x10^6/uL Hgb 13.5 (12.0-16.0) g/dL Hct 39.0 (33.0-47.0) % MCV 90.1 (78.0-93.0) fL MCH 31.2 (26.0-32.0) pg MCHC 34.6 (32.0-36.0) g/dL RDW Coeff of Justine 11.9 (10.0-15.0) % Plt Count 452 H D (130-400) x10^3/uL Immature Gran % (Auto) 1.60 H (0.00-0.43) % Neut % (Auto) 53.5 (50.0-80.0) % Lymph % (Auto) 32.6 (25.0-50.0) % [place] % (Auto) 11.5 H (2.0-11.0) % Eos % (Auto) 0.8 (0.0-4.0) % Baso % (Auto) 0.0 L (0.2-1.2) % Neut # (Auto) 7.6 (1.8-7.7) x10^3/uL Lymph # (Auto) 4.6 (1.0-4.8) x10^3/uL Valencia # (Auto) 1.6 H (0.0-0.8) x10^3/uL Eos # (Auto) 0.1 (0.0-0.5) x10^3/uL Baso # (Auto) 0.0 (0.0-0.2) x10^3/uL Immature Gran # (Auto) 0.22 H (0.00-0.07) x10^3/uL Sodium 140 (136-145) mmol/L Potassium 3.1 L (3.5-5.1) mmol/L Chloride 98 (98-107) mmol/L Carbon Dioxide 31 (21-32) mmol/L Anion Gap 14.1 (5-15) mmol/L BUN 39 H (7-18) mg/dL Creatinine 1.1 H (0.55-1.02) mg/dL Est Cr Clr Drug Dosing 33.34 mL/min Estimated GFR (MDRD) 48 Glucose 68 L (70-99) mg/dL Calcium 8.7 (8.5-10.1) mg/dL Urine Color Yellow (YELLOW) Urine Appearance Clear (CLEAR) Urine pH 6.0 (5.0-8.0) Ur Specific Trout 1.025 Urine Protein 30 H (NEGATIVE) mg/dL Urine Glucose (UA) Negative (NEGATIVE) mg/dL Urine Ketones Negative (NEGATIVE) mg/dL Urine Occult Blood Negative (NEGATIVE) Urine Nitrite Negative (NEGATIVE) Urine Bilirubin Negative (NEGATIVE) Urine Urobilinogen 0.2 (0.2) EU/dL Ur Leukocyte Esterase Negative (NEGATIVE) Urine RBC 0-5 (NOT SEEN) /HPF Urine WBC 0-5 (NOT SEEN) /HPF Ur Squamous Epith Cells Few H (NOT SEEN) /HPF Urine Bacteria Rare (NOT SEEN) /HPF Urine Mucus Occasional H (NOT SEEN) /LPF Meds: Medications Generic Name Dose Route Start Last Admin Trade Name Freq PRN Reason Stop Dose Admin Sodium Chloride 1,000 mls @ 999 mls/hr 07/24/21 18:01 Normal Saline IV 07/24/21 19:01 ONETIME ONE Discontinued Medications Generic Name Dose Route Start Last Admin Trade Name Freq PRN Reason Stop Dose Admin Acetaminophen 650 mg 07/24/21 18:01 07/24/21 18:27 Acetaminophen 325 Mg Tab PO 07/24/21 18:02 650 mg NOW ONE Administration Hydrocodone Bitart/Acetaminophen 1 tab 07/24/21 18:07 07/24/21 18:26 Acetaminophen/Hydrocodone 325-5 Mg Tab PO 07/24/21 18:08 1 tab ONETIME ONE Administration Azithromycin 500 mg 07/24/21 18:21 Azithromycin 250 Mg Tab PO 07/24/21 18:22 ONETIME ONE Magnesium Oxide 400 mg 07/25/21 17:56 Magnesium Oxide 400 Mg Tab PO 07/25/21 17:57 DAILY ONE Magnesium Oxide 400 mg 07/24/21 18:01 07/24/21 18:23 Magnesium Oxide 400 Mg Tab PO 07/24/21 18:02 400 mg ONETIME ONE Administration Magnesium Oxide Confirm 07/24/21 18:04 07/24/21 18:28 Magnesium Oxide 400 Mg Tab Administered 07/24/21 18:05 Not Given Dose 400 mg .ROUTE .STK-MED ONE Potassium Chloride 40 meq 07/24/21 17:55 07/24/21 18:17 Potassium Chloride 20 Meq Tab.Er PO 07/24/21 17:56 40 meq ONETIME ONE Administration Departure - Departure Time of Disposition: 19:00 Disposition: Home, Self-Care 01 Condition: Good Clinical Impression: Weakness, Hypokalemia, Dehydration, Leukocytosis, unspecified - Discharge Information *PRESCRIPTION DRUG MONITORING PROGRAM REVIEWED*: No *COPY OF PRESCRIPTION DRUG MONITORING REPORT IN PATIENT KERMIT: No Instructions: Weakness, [id number] Referrals: Brianna Briceño DO [Primary Care Provider] - Forms: ED Department Discharge Additional Instructions: Your other diagnoses are #2 dehydration #3 low potassium level hypokalemia #4 Covid #5 leukocytosis which is elevated white count Follow-up with your primary care provider in the next 72 hours Take the antibiotics Zithromax 1 tablet every day for the next 4 days I recommend taking a probiotic with it Take all your medications as directed Make sure you are drinking plenty of fluids I recommend at least a half a gallon of fluids a day Use your oxygen at home I recommend for the next 24 hours Return here to the emergency room if anything changes or gets worse Sepsis Event Note (ED) - Focused Exam Vital Signs: Vital Signs Temp Pulse Resp BP Pulse Ox 07/24/21 17:52 36.3 C 66 16 151/76 H 95 07/24/21 15:44 36.3 C 71 16 150/78 H 96 - Problem List & Annotations (1) Dehydration SNOMED Code(s): 76763648 Code(s): E86.0 - DEHYDRATION Status: Acute Current Visit: Yes (2) Hypokalemia SNOMED Code(s): 15788085 Code(s): E87.6 - HYPOKALEMIA Status: Acute Current Visit: Yes (3) Leukocytosis, unspecified SNOMED Code(s): 503525789, 419356001 Code(s): D72.829 - ELEVATED WHITE BLOOD CELL COUNT, UNSPECIFIED Status: Acute Current Visit: Yes (4) Weakness SNOMED Code(s): 29487109 Code(s): R53.1 - WEAKNESS Status: Acute Current Visit: Yes - My Orders Last 24 Hours: My Active Orders 07/24/21 18:01 Sodium Chloride 0.9% @ Wide Open(1,000ml) Sodium Chloride 0.9% [Normal Saline] 1,000 ml IV ONETIME - Assessment/Plan Last 24 Hours: My Active Orders 07/24/21 18:01 Sodium Chloride 0.9% @ Wide Open(1,000ml) Sodium Chloride 0.9% [Normal Saline] 1,000 ml IV ONETIME
[2021-07-24 16:13] LABS: ANION GAP 14.1 mmol/L (5-15)
[2021-07-24 17:53] VITALS: BP 151/76
[2021-07-24] MEDS ORDERED: Potassium Chloride 20 MEQ Tab.ER PO ONE ×2 (17:55→19:33)
--- NOTE | 2021-07-24 17:57 | CR ---
[id number] RAD/RAD Chest PA or AP 1V EXAM: RAD Chest PA or AP 1V INDICATION: POST COVID, WEAKNESS. COMPARISON: None. DISCUSSION: Cardiomediastinal silhouette is stable in size and contour. Pulmonary hyperinflation. Overall improved aeration of lungs bilaterally. No pneumothorax or pleural effusion. Left basilar subsegmental atelectasis and or scarring IMPRESSION: Overall improved aeration of lungs bilaterally. Kalia Mclean DO 07/24/21 [id number] Thank you for allowing us to participate in the care of your patient.
[2021-07-24] MEDS ORDERED: Acetaminophen 325 MG Tab PO ONE (18:01)
[2021-07-24] MEDS ORDERED: Sodium Chloride 0.9% 1,000 ML IV ONE (18:01)
[2021-07-24] MEDS ORDERED: Magnesium Oxide 400 MG Tab PO ONE (18:01)
[2021-07-24] MEDS ORDERED: Magnesium Oxide 400 MG Tab ONE (18:04)
[2021-07-24] MEDS ORDERED: Acetaminophen/HYDROcodone 325-5 MG Tab PO ONE (18:07)
[2021-07-24] MEDS ORDERED: Azithromycin 250 MG Tab PO ONE (18:21)
[2021-07-24 19:15] VITALS: PULSE 61
[2021-07-25] MEDS ORDERED: Magnesium Oxide 400 MG Tab PO ONE (17:56)
== END 2021-07-24 20:15 | disposition home or self-care (01) ==
LOC: VM.ED 15:23
DX: R53.1 Weakness (principal); E86.0 Dehydration; E87.6 Hypokalemia; D72.829 Elevated white blood cell count, unspecified; Z79.4 Long term (current) use of insulin; Z79.899 Other long term (current) drug therapy; Z88.8 Allergy status to other drugs, medicaments and biological substances; Z88.1 Allergy status to other antibiotic agents
CPT/HCPCS: 36415; 71045; 80048; 81001; 85025; 99285; A9270; J7030

== ENCOUNTER 2022-08-29 23:05 | Emergency (ER) | payer MEDICARE, OTHER ==
[2022-08-30 00:06] LABS: CHLORIDE,CL 100 mmol/L (98-107); SODIUM,NA 138 mmol/L (136-145)
[2022-08-30 00:07] LABS: ANION GAP 8.8 mmol/L (5-15); ESTIMATED GFR 58 mL/min (>=60)
[2022-08-30 00:15] VITALS: PULSE 64
[2022-08-30 00:35] VITALS: BP 144/60
== END 2022-08-30 00:43 | disposition home or self-care (01) ==
LOC: VM.ED 23:05
DX: I16.0 Hypertensive urgency (principal); K29.70 Gastritis, unspecified, without bleeding; I10 Essential (primary) hypertension; E11.9 Type 2 diabetes mellitus without complications; E66.9 Obesity, unspecified; Z88.8 Allergy status to other drugs, medicaments and biological substances; Z88.6 Allergy status to analgesic agent; Z79.4 Long term (current) use of insulin; Z79.899 Other long term (current) drug therapy
CPT/HCPCS: 36415; 71046; 80053; 81001; 82550; 83615; 84484; 85025; 85610; 93005; 93010; 99284

== ENCOUNTER 2023-10-12 06:45 | Emergency (ER) | payer MEDICARE, OTHER ==
[2023-10-12] MEDS ORDERED: Alum Hydrox/Mag Hydrox/Simeth 30 ML, Lidocaine 2% 15 ML PO ONE ×2 (07:19)
[2023-10-12] MEDS ORDERED: Sodium Chloride 0.9% 1,000 ML IV ONE (07:23)
[2023-10-12] MEDS ORDERED: Pantoprazole 40 MG Vial IVPUSH ONE (07:23)
[2023-10-12 07:33] LABS: BASOPHILS PERCENT AUTO 0.1 % (0.2-1.2); HEMATOCRIT 40.5 % (33.0-47.0); HEMOGLOBIN 13.5 g/dL (12.0-16.0); IMMATURE GRAN ABSOLUTE AUTO 0.02 x10^3/uL (0.00-0.07); LYMPHOCYTES ABSOLUTE AUTO 0.8 x10^3/uL (1.0-4.8); LYMPHOCYTES PERCENT AUTO 6.5 % (25.0-50.0); MEAN CORPUSCULAR HEMOGLOBIN 30.7 pg (26.0-32.0); MEAN CORPUSCULAR HGB CONC 33.3 g/dL (32.0-36.0); MONOCYTES ABSOLUTE AUTO 0.6 x10^3/uL (0.0-0.8); MONOCYTES PERCENT AUTO 4.2 % (2.0-11.0); NEUTROPHILS ABSOLUTE AUTO 11.6 x10^3/uL (1.8-7.7); PLATELET COUNT,PLT 282 x10^3/uL (130-400)
[2023-10-12 07:53] LABS: ALANINE AMINOTRANSFERASE,ALT 34 U/L (14-59); ALBUMIN 3.6 g/dL (3.4-5.0); ALKALINE PHOSPHATASE 112 U/L (46-116); ASPARTATE AMNIOTRANSFERASE,AST 25 U/L (15-37); BILIRUBIN TOTAL 0.5 mg/dL (0.2-1.0); BLOOD UREA NITROGEN,BUN 31 mg/dL (7-18); CARBON DIOXIDE,CO2 29 mmol/L (21-32); CHLORIDE,CL 98 mmol/L (98-107); CREATININE 1.2 mg/dL (0.55-1.02); EST CRCL DRUG DOSING (CG) 29.16 mL/min; GLUCOSE RANDOM 298 mg/dL (70-99); LIPASE 39 U/L (19-71); POTASSIUM,K 4.2 mmol/L (3.5-5.1); PROTEIN TOTAL,TP 7.2 g/dL (6.4-8.2); SODIUM,NA 138 mmol/L (136-145)
[2023-10-12 07:59] LABS: ANION GAP 15.2 mmol/L (5-15); C-REACTIVE PROTEIN < 0.50 mg/dL (<=0.50); ESTIMATED GFR 46 mL/min (>=60)
[2023-10-12 08:07] LABS: CALCIUM 9.6 mg/dL (8.5-10.1)
[2023-10-12 09:57] VITALS: BP 153/75; PULSE 79
== END 2023-10-12 09:10 | disposition home or self-care (01) ==
LOC: VM.ED 06:55
DX: K29.70 Gastritis, unspecified, without bleeding (principal); I10 Essential (primary) hypertension; E11.9 Type 2 diabetes mellitus without complications; Z88.6 Allergy status to analgesic agent
CPT/HCPCS: 80053; 83690; 85025; 86140; 96361; 96374; 99284-25; A9270-GY; C9113; J7030

== ENCOUNTER 2024-07-12 10:50 | Emergency (ER) | payer MEDICARE, OTHER ==
[2024-07-12] MEDS ORDERED: Ketorolac 30 MG/ML SDV IM ONE ×2 (11:00→11:04)
[2024-07-12] MEDS: Acetaminophen/HYDROcodone 325-5 MG Tab PO ONE (11:00)
[2024-07-12] MEDS: Ketorolac 30 MG/ML SDV IM ONE (11:00)
[2024-07-12] MEDS ORDERED: Ketorolac 15 MG/ML SDV IM ONE ×2 (11:15→12:00)
[2024-07-12 11:40] LABS: BASOPHILS PERCENT AUTO 0.2 % (0.2-1.2); EOSINOPHILS ABSOLUTE AUTO 0.1 x10^3/uL (0.0-0.5); EOSINOPHILS PERCENT AUTO 2.1 % (0.0-4.0); HEMATOCRIT 36.1 % (33.0-47.0); HEMOGLOBIN 12.3 g/dL (12.0-16.0); IMMATURE GRAN ABSOLUTE AUTO 0.01 x10^3/uL (0.00-0.07); LYMPHOCYTES ABSOLUTE AUTO 1.2 x10^3/uL (1.0-4.8); LYMPHOCYTES PERCENT AUTO 23.8 % (25.0-50.0); MEAN CORPUSCULAR HEMOGLOBIN 32.1 pg (26.0-32.0); MEAN CORPUSCULAR HGB CONC 34.1 g/dL (32.0-36.0); MEAN CORPUSCULAR VOLUME 94.3 fL (78.0-93.0); MONOCYTES ABSOLUTE AUTO 0.6 x10^3/uL (0.0-0.8); MONOCYTES PERCENT AUTO 10.7 % (2.0-11.0); NEUTROPHILS ABSOLUTE AUTO 3.3 x10^3/uL (1.8-7.7); PLATELET COUNT,PLT 193 x10^3/uL (130-400); RED BLOOD CELL COUNT 3.83 x10^6/uL (4.00-5.50); WHITE BLOOD CELL COUNT,WBC 5.2 x10^3/uL (4.0-10.0)
[2024-07-12 12:01] LABS: ALANINE AMINOTRANSFERASE,ALT 22 U/L (14-59); ALBUMIN 3.4 g/dL (3.4-5.0); ALKALINE PHOSPHATASE 95 U/L (46-116); ASPARTATE AMNIOTRANSFERASE,AST 26 U/L (15-37); BILIRUBIN TOTAL 0.7 mg/dL (0.2-1.0); BLOOD UREA NITROGEN,BUN 24 mg/dL (7-18); CARBON DIOXIDE,CO2 31 mmol/L (21-32); CHLORIDE,CL 102 mmol/L (98-107); GLUCOSE RANDOM 166 mg/dL (70-99); POTASSIUM,K 3.9 mmol/L (3.5-5.1); PROTEIN TOTAL,TP 6.8 g/dL (6.4-8.2); SODIUM,NA 140 mmol/L (136-145); URIC ACID 5.1 mg/dL (2.6-6.0)
[2024-07-12 12:02] LABS: ANION GAP 10.9 mmol/L (5-15); C-REACTIVE PROTEIN < 0.50 mg/dL (<=0.50); ESTIMATED GFR 58 mL/min (>=60)
[2024-07-12 12:56] VITALS: BP 159/64; PULSE 60
== END 2024-07-12 13:15 | disposition home or self-care (01) ==
LOC: VM.ED 10:50
DX: S93.401A Sprain of unspecified ligament of right ankle, initial encounter (principal); I10 Essential (primary) hypertension; I25.10 Atherosclerotic heart disease of native coronary artery without angina pectoris; E11.9 Type 2 diabetes mellitus without complications; E66.9 Obesity, unspecified; Z86.16 Personal history of COVID-19; Z90.49 Acquired absence of other specified parts of digestive tract; Z90.710 Acquired absence of both cervix and uterus; Z79.899 Other long term (current) drug therapy; Z79.4 Long term (current) use of insulin; Z88.8 Allergy status to other drugs, medicaments and biological substances; Z88.5 Allergy status to narcotic agent; Z88.6 Allergy status to analgesic agent; Z68.24 Body mass index [BMI] 24.0-24.9, adult; X50.0XXA Overexertion from strenuous movement or load, initial encounter
CPT/HCPCS: 36415; 73560; 73600; 73620; 80053; 84550; 85025; 86140; 96372; 99283; A9270; J1885

== ENCOUNTER 2024-09-07 06:56 | Day surgery (SDC) | payer MEDICARE, OTHER ==
[2024-09-07] MEDS: Lactated Ringers 1,000 ML IV SCH (07:23)
[2024-09-07] MEDS ORDERED: fentaNYL 100 MCG/2 ML SDV ONE (07:43)
[2024-09-07] MEDS ORDERED: Propofol 200 MG/20 ML SDV ONE ×2 (07:43→09:08)
[2024-09-07 09:21] VITALS: PULSE 60
[2024-09-07 09:30] VITALS: BP 145/53
== END 2024-09-07 10:20 | disposition home or self-care (01) ==
LOC: VM.SDS 06:56
PROVIDERS: ATTEND Student in an Organized Health Care Education/Training Program
DX: Z12.11 Encounter for screening for malignant neoplasm of colon (principal); D12.3 Benign neoplasm of transverse colon; D12.4 Benign neoplasm of descending colon; Z86.0100 Personal history of colon polyps, unspecified; Z80.0 Family history of malignant neoplasm of digestive organs; I10 Essential (primary) hypertension; E11.65 Type 2 diabetes mellitus with hyperglycemia; Z98.84 Bariatric surgery status; Z79.4 Long term (current) use of insulin; Z79.899 Other long term (current) drug therapy; Z88.6 Allergy status to analgesic agent; Z88.8 Allergy status to other drugs, medicaments and biological substances
CPT/HCPCS: 00811; 45385; 82947; 99100; J2704; J3010; J7120; 88305

== ENCOUNTER 2024-10-24 08:27 | Emergency (ER) | payer MEDICARE, OTHER ==
[2024-10-24 08:38] VITALS: PULSE 61
[2024-10-24] MEDS ORDERED: Sodium Chloride 0.9% 10 ML Syringe FLUSH PRN (08:47)
[2024-10-24 08:58] LABS: BASOPHILS PERCENT AUTO 0.2 % (0.2-1.2); EOSINOPHILS ABSOLUTE AUTO 0.1 x10^3/uL (0.0-0.5); EOSINOPHILS PERCENT AUTO 0.8 % (0.0-4.0); HEMATOCRIT 39.2 % (33.0-47.0); HEMOGLOBIN 13.3 g/dL (12.0-16.0); IMMATURE GRAN ABSOLUTE AUTO 0.01 x10^3/uL (0.00-0.07); LYMPHOCYTES ABSOLUTE AUTO 1.4 x10^3/uL (1.0-4.8); LYMPHOCYTES PERCENT AUTO 13.6 % (25.0-50.0); MEAN CORPUSCULAR HEMOGLOBIN 31.1 pg (26.0-32.0); MEAN CORPUSCULAR HGB CONC 33.9 g/dL (32.0-36.0); MEAN CORPUSCULAR VOLUME 91.8 fL (78.0-93.0); NEUTROPHILS ABSOLUTE AUTO 7.8 x10^3/uL (1.8-7.7); NEUTROPHILS PERCENT AUTO 75.3 % (50.0-80.0); PLATELET COUNT,PLT 215 x10^3/uL (130-400); RED BLOOD CELL COUNT 4.27 x10^6/uL (4.00-5.50); WHITE BLOOD CELL COUNT,WBC 10.4 x10^3/uL (4.0-10.0)
[2024-10-24] MEDS: Lactated Ringers 1,000 ML IV ONE (09:00)
[2024-10-24] MEDS: Ketorolac 30 MG/ML SDV IVPUSH ONE (09:00)
[2024-10-24] MEDS: Ondansetron 4 MG/2 ML SDV IVPUSH ONE (09:01)
[2024-10-24 09:15] LABS: APPEARANCE,URINE CLEAR (CLEAR); BILIRUBIN,URINE NEGATIVE (NEGATIVE); COLOR,URINE YELLOW (YELLOW); GLUCOSE,URINE NEGATIVE (NEGATIVE); KETONES,URINE NEGATIVE (NEGATIVE); LEUKOCYTE ESTERASE,URINE TRACE (NEGATIVE); NITRITE,URINE NEGATIVE (NEGATIVE); OCCULT BLOOD,URINE NEGATIVE (NEGATIVE); PROTEIN,URINE 30 mg/dL (NEGATIVE); UROBILINOGEN,URINE 0.2 EU/dL (0.2)
[2024-10-24 09:17] LABS: A/G RATIO 1.12; ALANINE AMINOTRANSFERASE,ALT 30 U/L (14-59); ALBUMIN 3.7 g/dL (3.4-5.0); ALKALINE PHOSPHATASE 110 U/L (46-116); ASPARTATE AMNIOTRANSFERASE,AST 21 U/L (15-37); BILIRUBIN TOTAL 0.6 mg/dL (0.2-1.0); BLOOD UREA NITROGEN,BUN 26 mg/dL (7-18); CALCIUM 9.5 mg/dL (8.5-10.1); CARBON DIOXIDE,CO2 32 mmol/L (21-32); CHLORIDE,CL 101 mmol/L (98-107); GLUCOSE RANDOM 190 mg/dL (70-99); LIPASE 52 U/L (19-71); POTASSIUM,K 4.1 mmol/L (3.5-5.1); SODIUM,NA 140 mmol/L (136-145)
[2024-10-24 09:18] LABS: ANION GAP 11.1 mmol/L (5-15); C-REACTIVE PROTEIN < 0.50 mg/dL (<=0.50); ESTIMATED GFR 57 mL/min (>=60)
[2024-10-24 09:28] LABS: BACTERIA,URINE FEW /HPF (NOT SEEN); RBC,URINE NOT SEEN /HPF (NOT SEEN); SQUAMOUS EPITHELIAL CELLS,UR FEW /HPF (NOT SEEN); WBC,URINE 0-5 /HPF (NOT SEEN)
[2024-10-24 09:44] VITALS: BP 141/61
[2024-10-24] MEDS: Iopamidol 612 MG/ML 100 ML Bottle IVPUSH ONE (10:14)
== END 2024-10-24 11:29 | disposition home or self-care (01) ==
LOC: VM.ED 08:27
DX: R11.2 Nausea with vomiting, unspecified (principal); T37.8X5A Adverse effect of other specified systemic anti-infectives and antiparasitics, initial encounter; I25.10 Atherosclerotic heart disease of native coronary artery without angina pectoris; I10 Essential (primary) hypertension; E11.9 Type 2 diabetes mellitus without complications; E66.9 Obesity, unspecified; Z86.16 Personal history of COVID-19; Z90.49 Acquired absence of other specified parts of digestive tract; Z90.710 Acquired absence of both cervix and uterus; Z88.6 Allergy status to analgesic agent; Z88.8 Allergy status to other drugs, medicaments and biological substances; Z79.4 Long term (current) use of insulin; Z79.899 Other long term (current) drug therapy
CPT/HCPCS: 74177; 80053; 81001; 83690; 85025; 86140; 87086; 87088; 87186; 96361; 96374; 96375; 99284; 99284-25; J1885; J2405; J7120; Q9967

== ENCOUNTER 2024-11-10 03:35 | Emergency (ER) | payer MEDICARE, OTHER ==
[2024-11-10 03:50] VITALS: PULSE 79
[2024-11-10 03:51] LABS: BASOPHILS PERCENT AUTO 0.1 % (0.2-1.2); EOSINOPHILS ABSOLUTE AUTO 0.2 x10^3/uL (0.0-0.5); EOSINOPHILS PERCENT AUTO 2.2 % (0.0-4.0); HEMATOCRIT 38.1 % (33.0-47.0); HEMOGLOBIN 12.6 g/dL (12.0-16.0); IMMATURE GRAN ABSOLUTE AUTO 0.01 x10^3/uL (0.00-0.07); LYMPHOCYTES ABSOLUTE AUTO 1.3 x10^3/uL (1.0-4.8); LYMPHOCYTES PERCENT AUTO 16.3 % (25.0-50.0); MEAN CORPUSCULAR HEMOGLOBIN 30.9 pg (26.0-32.0); MEAN CORPUSCULAR HGB CONC 33.1 g/dL (32.0-36.0); MEAN CORPUSCULAR VOLUME 93.4 fL (78.0-93.0); MONOCYTES PERCENT AUTO 12.5 % (2.0-11.0); NEUTROPHILS ABSOLUTE AUTO 5.3 x10^3/uL (1.8-7.7); NEUTROPHILS PERCENT AUTO 68.8 % (50.0-80.0); PLATELET COUNT,PLT 324 x10^3/uL (130-400); RED BLOOD CELL COUNT 4.08 x10^6/uL (4.00-5.50); WHITE BLOOD CELL COUNT,WBC 7.7 x10^3/uL (4.0-10.0)
[2024-11-10 04:10] LABS: A/G RATIO 1.18; ALANINE AMINOTRANSFERASE,ALT 26 U/L (14-59); ALKALINE PHOSPHATASE 103 U/L (46-116); ASPARTATE AMNIOTRANSFERASE,AST 22 U/L (15-37); BILIRUBIN TOTAL 0.4 mg/dL (0.2-1.0); BLOOD UREA NITROGEN,BUN 32 mg/dL (7-18); CALCIUM 9.9 mg/dL (8.5-10.1); CARBON DIOXIDE,CO2 31 mmol/L (21-32); CHLORIDE,CL 99 mmol/L (98-107); CREATININE 1.1 mg/dL (0.55-1.02); GLUCOSE RANDOM 138 mg/dL (70-99); MAGNESIUM 1.8 mg/dL (1.8-2.4); PROTEIN TOTAL,TP 7.4 g/dL (6.4-8.2); SODIUM,NA 138 mmol/L (136-145)
[2024-11-10 04:11] LABS: ESTIMATED GFR 51 mL/min (>=60)
[2024-11-10 04:29] VITALS: BP 175/72
== END 2024-11-10 04:40 | disposition home or self-care (01) ==
LOC: VM.ED 03:35
DX: G45.9 Transient cerebral ischemic attack, unspecified (principal); R51.9 Headache, unspecified; I10 Essential (primary) hypertension; I25.10 Atherosclerotic heart disease of native coronary artery without angina pectoris; E78.00 Pure hypercholesterolemia, unspecified; E66.9 Obesity, unspecified; E11.9 Type 2 diabetes mellitus without complications; Z88.1 Allergy status to other antibiotic agents; Z88.8 Allergy status to other drugs, medicaments and biological substances; Z79.4 Long term (current) use of insulin; Z79.899 Other long term (current) drug therapy; Z90.49 Acquired absence of other specified parts of digestive tract; Z90.710 Acquired absence of both cervix and uterus
CPT/HCPCS: 36415; 70450; 80053; 83735; 85025; 93005; 93010; 99284

== ENCOUNTER 2025-04-12 16:58 | Emergency (ER) | payer MEDICARE, OTHER ==
[2025-04-12] MEDS: Acetaminophen/HYDROcodone 325-5 MG Tab PO ONE (20:28)
[2025-04-12 20:40] VITALS: PULSE 63
[2025-04-12 21:18] VITALS: BP 189/91
== END 2025-04-12 20:50 | disposition short-term general hospital (02) ==
LOC: VM.ED 16:58
DX: I47.10 Supraventricular tachycardia, unspecified (principal); K21.9 Gastro-esophageal reflux disease without esophagitis; I10 Essential (primary) hypertension; E78.00 Pure hypercholesterolemia, unspecified; E66.9 Obesity, unspecified; E11.9 Type 2 diabetes mellitus without complications; Z88.8 Allergy status to other drugs, medicaments and biological substances; Z88.1 Allergy status to other antibiotic agents; Z79.4 Long term (current) use of insulin; Z79.899 Other long term (current) drug therapy; Z90.49 Acquired absence of other specified parts of digestive tract; Z90.710 Acquired absence of both cervix and uterus; Z86.16 Personal history of COVID-19; Z68.23 Body mass index [BMI] 23.0-23.9, adult
CPT/HCPCS: 36415; 83735; 84484; 99285; A9270-GY

== ENCOUNTER 2025-06-07 07:17 | Emergency (ER) | payer MEDICARE, OTHER ==
[2025-06-07] MEDS ORDERED: Sodium Chloride 0.9% 10 ML Syringe FLUSH PRN (07:42)
[2025-06-07 07:53] LABS: BASOPHILS ABSOLUTE AUTO 0.0 x10^3/uL (0.0-0.2); BASOPHILS PERCENT AUTO 0.2 % (0.2-1.2); EOSINOPHILS ABSOLUTE AUTO 0.2 x10^3/uL (0.0-0.5); EOSINOPHILS PERCENT AUTO 3.8 % (0.0-4.0); IMMATURE GRAN ABSOLUTE AUTO 0.01 x10^3/uL (0.00-0.07); IMMATURE GRAN PERCENT AUTO 0.20 % (0.00-0.43); LYMPHOCYTES ABSOLUTE AUTO 1.3 x10^3/uL (1.0-4.8); LYMPHOCYTES PERCENT AUTO 26.1 % (25.0-50.0); MONOCYTES ABSOLUTE AUTO 0.6 x10^3/uL (0.0-0.8); MONOCYTES PERCENT AUTO 11.7 % (2.0-11.0); NEUTROPHILS ABSOLUTE AUTO 2.9 x10^3/uL (1.8-7.7); NEUTROPHILS PERCENT AUTO 58.0 % (50.0-80.0); PLATELET COUNT,PLT 250 x10^3/uL (130-400); RED BLOOD CELL COUNT 4.00 x10^6/uL (4.00-5.50); WHITE BLOOD CELL COUNT,WBC 4.9 x10^3/uL (4.0-10.0)
[2025-06-07] MEDS: LORazepam 2 MG/ML SDV IVPUSH ONE (07:53)
[2025-06-07 08:13] LABS: INR 1.0 (0.9-1.1)
[2025-06-07 08:24] LABS: A/G RATIO 1.16; ALANINE AMINOTRANSFERASE,ALT 28.0 U/L (14-59); ASPARTATE AMNIOTRANSFERASE,AST 25.0 U/L (15-37); BILIRUBIN TOTAL 0.4 mg/dL (0.2-1.0); BLOOD UREA NITROGEN,BUN 20.0 mg/dL (7-18); CARBON DIOXIDE,CO2 31.0 mmol/L (21-32); CHLORIDE,CL 104.0 mmol/L (98-107); CREATININE 1.1 mg/dL (0.55-1.02); EST CRCL DRUG DOSING (CG) 32.8 mL/min; GLUCOSE RANDOM 171.0 mg/dL (70-99); POTASSIUM,K 3.8 mmol/L (3.5-5.1); PRO B-TYPE NATRIUR PEPT,BNPPRO 994.0 pg/mL (<=450); PROTEIN TOTAL,TP 6.7 g/dL (6.4-8.2); SODIUM,NA 142.0 mmol/L (136-145)
[2025-06-07 08:28] LABS: ESTIMATED GFR 51.0 mL/min (>=60)
[2025-06-07 17:56] VITALS: BP 170/72; PULSE 61
== END 2025-06-07 10:25 | disposition home or self-care (01) ==
LOC: VM.ED 07:17
DX: I10 Essential (primary) hypertension (principal); F41.9 Anxiety disorder, unspecified; I25.10 Atherosclerotic heart disease of native coronary artery without angina pectoris; E78.00 Pure hypercholesterolemia, unspecified; Z88.6 Allergy status to analgesic agent; Z88.8 Allergy status to other drugs, medicaments and biological substances; Z79.4 Long term (current) use of insulin; Z79.899 Other long term (current) drug therapy
CPT/HCPCS: 80053; 83735; 83880; 84484; 85025; 85610; 87426; 93005; 96374; 99284; J2060; 71046; 93010

== ENCOUNTER 2025-07-21 09:24 | Emergency (ER) | payer MEDICARE, OTHER ==
[2025-07-21] MEDS ORDERED: Sodium Chloride 0.9% 10 ML Syringe FLUSH PRN (09:52)
[2025-07-21 10:11] LABS: BASOPHILS ABSOLUTE AUTO 0.0 x10^3/uL (0.0-0.2); BASOPHILS PERCENT AUTO 0.4 % (0.2-1.2); EOSINOPHILS ABSOLUTE AUTO 0.1 x10^3/uL (0.0-0.5); EOSINOPHILS PERCENT AUTO 2.5 % (0.0-4.0); IMMATURE GRAN ABSOLUTE AUTO 0.01 x10^3/uL (0.00-0.07); IMMATURE GRAN PERCENT AUTO 0.20 % (0.00-0.43); LYMPHOCYTES ABSOLUTE AUTO 1.6 x10^3/uL (1.0-4.8); LYMPHOCYTES PERCENT AUTO 31.2 % (25.0-50.0); MONOCYTES ABSOLUTE AUTO 0.7 x10^3/uL (0.0-0.8); MONOCYTES PERCENT AUTO 13.3 % (2.0-11.0); NEUTROPHILS ABSOLUTE AUTO 2.7 x10^3/uL (1.8-7.7); NEUTROPHILS PERCENT AUTO 52.4 % (50.0-80.0); PLATELET COUNT,PLT 179 x10^3/uL (130-400); RED BLOOD CELL COUNT 4.07 x10^6/uL (4.00-5.50); WHITE BLOOD CELL COUNT,WBC 5.1 x10^3/uL (4.0-10.0)
[2025-07-21 10:24] LABS: A/G RATIO 1.18; ALANINE AMINOTRANSFERASE,ALT 25.0 U/L (14-59); ASPARTATE AMNIOTRANSFERASE,AST 27.0 U/L (15-37); BILIRUBIN TOTAL 0.6 mg/dL (0.2-1.0); BLOOD UREA NITROGEN,BUN 26.0 mg/dL (7-18); CARBON DIOXIDE,CO2 29.0 mmol/L (21-32); CHLORIDE,CL 100.0 mmol/L (98-107); CREATININE 0.9 mg/dL (0.55-1.02); EST CRCL DRUG DOSING (CG) 36.41 mL/min; GLUCOSE RANDOM 152.0 mg/dL (70-99); POTASSIUM,K 3.3 mmol/L (3.5-5.1); PROTEIN TOTAL,TP 7.4 g/dL (6.4-8.2); SODIUM,NA 139.0 mmol/L (136-145)
[2025-07-21 10:30] LABS: ESTIMATED GFR 65.0 mL/min (>=60)
[2025-07-21 10:57] VITALS: BP 148/70; PULSE 77
[2025-07-21] MEDS: Potassium Bicarbonate 25 MEQ Tab.EFF PO STA (11:07)
== END 2025-07-21 11:16 | disposition home or self-care (01) ==
LOC: VM.ED 09:24
DX: F41.9 Anxiety disorder, unspecified (principal); R00.2 Palpitations; I10 Essential (primary) hypertension; I25.10 Atherosclerotic heart disease of native coronary artery without angina pectoris; E78.00 Pure hypercholesterolemia, unspecified; E11.9 Type 2 diabetes mellitus without complications; E66.9 Obesity, unspecified; Z86.16 Personal history of COVID-19; Z90.710 Acquired absence of both cervix and uterus; Z79.4 Long term (current) use of insulin; Z79.899 Other long term (current) drug therapy; Z88.8 Allergy status to other drugs, medicaments and biological substances; Z88.5 Allergy status to narcotic agent; Z88.6 Allergy status to analgesic agent; Z68.24 Body mass index [BMI] 24.0-24.9, adult
CPT/HCPCS: 80053; 83735; 84443; 84484; 85025; 93005; 93010; 99284; 99285; A9270-GY

== ENCOUNTER 2025-08-23 15:41 | Emergency (ER) | payer MEDICARE, OTHER ==
[2025-08-23] MEDS ORDERED: Sodium Chloride 0.9% 10 ML Syringe FLUSH PRN (15:49)
[2025-08-23] MEDS: Ondansetron 4 MG/2 ML SDV IVPUSH ONE (15:57)
[2025-08-23 16:02] LABS: BASOPHILS ABSOLUTE AUTO 0.0 x10^3/uL (0.0-0.2); BASOPHILS PERCENT AUTO 0.3 % (0.2-1.2); EOSINOPHILS ABSOLUTE AUTO 0.1 x10^3/uL (0.0-0.5); EOSINOPHILS PERCENT AUTO 1.6 % (0.0-4.0); IMMATURE GRAN ABSOLUTE AUTO 0.01 x10^3/uL (0.00-0.07); IMMATURE GRAN PERCENT AUTO 0.20 % (0.00-0.43); LYMPHOCYTES ABSOLUTE AUTO 1.3 x10^3/uL (1.0-4.8); LYMPHOCYTES PERCENT AUTO 20.1 % (25.0-50.0); MONOCYTES ABSOLUTE AUTO 0.5 x10^3/uL (0.0-0.8); MONOCYTES PERCENT AUTO 8.5 % (2.0-11.0); NEUTROPHILS ABSOLUTE AUTO 4.4 x10^3/uL (1.8-7.7); NEUTROPHILS PERCENT AUTO 69.3 % (50.0-80.0); PLATELET COUNT,PLT 206 x10^3/uL (130-400); RED BLOOD CELL COUNT 3.75 x10^6/uL (4.00-5.50); WHITE BLOOD CELL COUNT,WBC 6.3 x10^3/uL (4.0-10.0)
[2025-08-23 16:17] VITALS: PULSE 94
[2025-08-23 16:23] LABS: A/G RATIO 1.13; ALANINE AMINOTRANSFERASE,ALT 34 U/L (14-59); ASPARTATE AMNIOTRANSFERASE,AST 30 U/L (15-37); BILIRUBIN TOTAL 0.4 mg/dL (0.2-1.0); BLOOD UREA NITROGEN,BUN 40 mg/dL (7-18); CARBON DIOXIDE,CO2 26 mmol/L (21-32); CHLORIDE,CL 101 mmol/L (98-107); CREATINE KINASE,CK 122 U/L (26-192); CREATININE 1.4 mg/dL (0.55-1.02); ESTIMATED GFR 38 mL/min (>=60); GLUCOSE RANDOM 321 mg/dL (70-99); POTASSIUM,K 3.7 mmol/L (3.5-5.1); PROTEIN TOTAL,TP 6.8 g/dL (6.4-8.2); SODIUM,NA 138 mmol/L (136-145)
[2025-08-23 16:45] LABS: INR 0.9 (0.9-1.1)
[2025-08-23] MEDS: Heparin Sodium 5,000 Units/ML Vial IVPUSH ONE (16:47)
[2025-08-23] MEDS: Heparin Sodium/0.45% NaCl 25,000 UNITS/250 ML BAG IV SCH (16:50)
[2025-08-23 17:00] LABS: PTT,PARTIAL THROMBOPLSTIN TIME 23.4 SEC (24.3-33.4)
[2025-08-23 17:36] VITALS: BP 143/68
== END 2025-08-23 17:27 | disposition short-term general hospital (02) ==
LOC: VM.ED 15:41
DX: I21.4 Non-ST elevation (NSTEMI) myocardial infarction (principal); I25.10 Atherosclerotic heart disease of native coronary artery without angina pectoris; I10 Essential (primary) hypertension; E78.00 Pure hypercholesterolemia, unspecified; E11.9 Type 2 diabetes mellitus without complications; Z90.49 Acquired absence of other specified parts of digestive tract; Z88.6 Allergy status to analgesic agent; Z88.8 Allergy status to other drugs, medicaments and biological substances; Z88.1 Allergy status to other antibiotic agents; Z79.4 Long term (current) use of insulin; Z79.899 Other long term (current) drug therapy
CPT/HCPCS: 36415; 71045; 80053; 82550; 84484; 85025; 85379; 85610; 85730; 93005; 93010; 96365; 96368; 96375; 99284; 99285-25; J1644; J2270; J2305; J2405